=== PATIENT | female | born 1940 | race Caucasian/White ===

== ENCOUNTER → 2018-03-23 09:41 | Outpatient (CLI) | payer MEDICARE, SELFPAY ==
[2018-03-23 11:00] LABS: Alanine Aminotransferase 14 IU/L (9-52); Albumin 4.5 g/dL (3.5-5.0); Albumin Globulin Ratio 1.4 (1.0-2.8); Alkaline Phosphatase 69 U/L (38-126); Aspartate Aminotransferase 22 IU/L (14-36); Bilirubin Total 0.7 mg/dL (0.2-1.3); Blood Urea Nitrogen 20 mg/dL (7-17); Calcium 9.4 mg/dL (8.4-10.2); Carbon Dioxide 31 mmol/L (22-32); Chloride 100 mmol/L (98-107); Estimated Glomerular Filt Rate > 60.0 mL/min (>60); Globulin 3.2 g/dL (1.7-4.1); Glucose 105 mg/dL (80-110); HDL Cholesterol 48 mg/dL (40-60); HEMOLYSIS < 15 (0-50); Potassium 4.5 mmol/L (3.4-5.1); Sodium 140 mmol/L (137-145); Total Protein 7.7 g/dL (6.3-8.2); Triglycerides 261 mg/dL (35-150)
[2018-03-23 11:11] LABS: Cholesterol 329 mg/dL (140-199); LDL Cholesterol Calculated 229 mg/dL (<100)
[2018-03-23 11:21] LABS: Creatinine Urine Random 123.8 mg/dL
[2018-03-23 11:22] LABS: Microalbumi Creatinin Ratio Ur 9.6 ug/mg CR (<30); Microalbumin Urine Random 1.2 mg/dL (0-1.6)
[2018-03-23 11:25] LABS: Thyroid Stimulating Hormone 3.71 uIU/mL (0.47-4.68)
== END ==
PROVIDERS: PCP Physician Assistant; Visit Provider Physician Assistant
DX: I10 Essential (primary) hypertension (principal); E78.1 Pure hyperglyceridemia
CPT/HCPCS: 36415; 80053; 80061; 82043; 82570; 84443

== ENCOUNTER → 2018-12-23 11:01 | Outpatient (CLI) | payer MEDICARE, SELFPAY ==
[2018-12-23 12:21] LABS: Alanine Aminotransferase 17 IU/L (9-52); Albumin 4.5 g/dL (3.5-5.0); Albumin Globulin Ratio 1.4 (1.0-2.8); Alkaline Phosphatase 69 U/L (38-126); Aspartate Aminotransferase 24 IU/L (14-36); BUN Creatinine Ratio 26.3 (6-22); Bilirubin Total 0.4 mg/dL (0.2-1.3); Blood Urea Nitrogen 21 mg/dL (7-17); Calcium 9.2 mg/dL (8.4-10.2); Carbon Dioxide 28 mmol/L (22-32); Chloride 101 mmol/L (98-107); Cholesterol 303 mg/dL (140-199); Estimated Glomerular Filt Rate > 60.0 mL/min (>60); Globulin 3.2 g/dL (1.7-4.1); Glucose 99 mg/dL (80-110); HDL Cholesterol 45 mg/dL (40-60); HEMOLYSIS < 15 (0-50); LDL Cholesterol Calculated 203 mg/dL (<100); Potassium 4.5 mmol/L (3.4-5.1); Sodium 138 mmol/L (137-145); Total Protein 7.7 g/dL (6.3-8.2); Triglycerides 273 mg/dL (35-150)
[2018-12-23 16:03] LABS: Creatinine Urine Random 124.4 mg/dL
[2018-12-23 16:10] LABS: Microalbumi Creatinin Ratio Ur 7.2 ug/mg CR (<30); Microalbumin Urine Random 0.9 mg/dL (0-1.6)
== END ==
PROVIDERS: PCP Physician Assistant; Visit Provider Physician Assistant
DX: E78.1 Pure hyperglyceridemia (principal); I10 Essential (primary) hypertension
CPT/HCPCS: 36415; 80053; 80061; 82043; 82570

== ENCOUNTER 2019-07-10 15:38 | Emergency (ER) | payer MEDICARE, SELFPAY ==
[2019-07-10 15:40] VITALS: BP 199/78; PULSE 67; RESP 18; TEMP 36.6; O2SAT 100
--- NOTE | 2019-07-10 15:59 | DI.CT.S_ITS ---
PROCEDURE: CT HEAD/BRAIN WO CON INDICATIONS: code stroke non tpa TECHNIQUE: Noncontrast 4.5 mm thick angled axial sections acquired from the foramen magnum to the vertex, with coronal and sagittal reformats. For radiation dose reduction, the following was used: automated exposure control, adjustment of mA and/or kV according to patient size. COMPARISON: None. FINDINGS: Image quality: Excellent. CSF spaces: Basal cisterns are patent. No extra-axial fluid collections. The ventricles are symmetric in size and shape. Brain: No intracranial bleeds or masses. There is cerebral volume loss for age, with resultant ventricular and sulcal prominence. There are periventricular and deep white matter chronic small vessel ischemic changes. There is intracranial internal carotid artery atherosclerosis. Skull and face: Calvarium and visualized facial bones appear intact, without suspicious lesions. Sinuses: Visualized sinuses and mastoids are clear. IMPRESSION: No acute intracranial process is seen. Negative for acute hemorrhage. Note is made of age-appropriate brain parenchymal volume loss and chronic small vessel ischemic changes. Dictated by: Vargas Hartmann M.D. on 07/10/2019 at 15:23 Approved by: Vargas Hartmann M.D. on 07/10/2019 at 15:24
--- NOTE | 2019-07-10 16:04 | ED_ITS ---
HPI - Neuro Symptoms/Deficit General Chief Complaint: Neuro Symptoms/Deficit Stated Complaint: blured vision,dizzy,slurred speech Time Seen by Provider: 07/10/19 15:45 Source: patient and family Mode of arrival: Ambulatory Limitations: no limitations History of Present Illness HPI Narrative: Patient comes emergency department after experiencing an episode of difficulty speaking that started somewhere between noon and 1400 today. Patient thinks the episode started between noon and 12 30, but son states he noticed that his mother ?did not seem right? around 1400. Patient states that she has been feeling tired today, but suddenly noticed that when she was trying to talk, the words would not come out. Patient states she also ?did not feel right? when she was trying to walk but does not recall specific weakness on 1 side or the other. She denies feeling a sense of vertigo in her head. Patient denies chest pain or shortness of breath. No sensory deficit that is new. Patient states she has chronic numbness in her sacral area that has been there for years. Patient denies any nausea or vomiting. She has never had any sort of CVA type symptoms before. Patient states she was just on a long road trip for about 6 months and recently returned to [place]. She denies any swelling in her legs. No history of DVT or PE. Patient has a history of hypertension but no diabetes. No other complaints at this time. Patient states she is feeling better now and feels as though she can speak normally. Her son states that the patient seems at baseline at this time. On Anticoagulants: No Related Data Home Medications Medication Instructions Recorded Confirmed [CALCIUM/MAGNESIUM] 1 tab PO QDAY #0 03/16/17 12/28/18 [VITAMIN B-12] 1 tab PO QDAY #0 03/16/17 12/28/18 multivitamin [Multiple Vitamins] 1 tab PO QDAY #0 03/16/17 12/28/18 [place] 1 cap PO .QDAY 03/30/18 12/28/18 Vitamin C 2,000 mg PO .QDAY 03/30/18 12/28/18 Vitamin A 1 tab PO .QDAY 12/28/18 12/28/18 lysine 500 mg tablet 500 mg PO 5XW PRN tab 12/28/18 12/28/18 Previous Rx's Medication Instructions Recorded conjugated estrogens 0.625 mg 0.625 mg PO QDAY #90 tab 03/18/19 tablet losartan 50 mg tablet 50 mg PO QDAY #90 tab 03/18/19 Allergies Allergy/AdvReac Type Severity Reaction Status Date / Time fenofibrate [FENOFIBRATE] AdvReac Intermediate hair loss Verified 12/28/18 14:15 and nails broke fluocinolone acetonide AdvReac Intermediate made my Verified 12/28/18 14:15 scalp burn. Review of Systems Constitutional Constitutional: Denies chills, Denies fatigue, Denies fever(s), Denies frequent falls, Denies lethargy and Denies weakness Eyes Eyes: Denies change in vision, Denies eye discharge, Denies irritation and Denies loss of vision ENT Ears, Nose, Mouth, and Throat: Denies change in voice, Denies dizziness, Denies neck pain, Denies sore throat and Denies throat swelling Cardiovascular Cardiovascular: Denies chest pain, Denies irregular heart rhythm, Denies lightheadedness, Denies palpitations, Denies dyspnea, Denies dyspnea on exertion and Denies orthopnea Respiratory Respiratory: Denies cough, Denies dyspnea, Denies dyspnea on exertion and Denies wheezing Gastrointestinal Gastrointestinal: Denies abdominal pain, Denies change in bowel habits, Denies diarrhea, Denies nausea and Denies vomiting Genitourinary Genitourinary: Denies hematuria, Denies flank pain, Denies urinary incontinence and Denies urinary urgency Musculoskeletal Musculoskeletal: Denies back pain, Denies muscle weakness, Denies neck pain, Denies numbness and Denies tingling Integumentary/Breasts Skin/Breast: Denies pruritus, Denies erythema, Denies rash and Denies wounds Neurologic Neurologic: Denies behavioral changes, Denies confusion, Denies dizziness, Denies frequent falls, Denies loss of vision, Denies numbness, Denies tingling and Denies weakness Comments: Aphasia Psychiatric Psychiatric: Denies anxiety, Denies behavioral changes, Denies confusion, Denies depression, Denies homicidal ideation and Denies suicidal ideation Endocrine Endocrine: Denies fatigue, Denies flushing and Denies palpitations Hematologic/Lymphatic Hematologic/Lymphatic: Denies easy bruising Allergic/Immunologic Allergic/Immunologic: Denies urticaria, Denies throat swelling and Denies wheezing Patient History Medical History Hypertension (Chronic Unknown) Surgical History History of tonsillectomy (194) Status post hysterectomy (1977) Family History Brother Heart disease Hypertension High cholesterol Child Age: 58 Crohns disease Child Age: 55 Hypertension Father Cancer Grandmother Stroke Mother Heart disease Hypertension High cholesterol Stroke Grandmother Heart disease Grandfather No problems noted. Social History Smoking Status: Never smoker second hand exposure: No alcohol intake: never substance use type: does not use Exam Initial Vital Signs Initial Vital Signs: Vital Signs Temperature 97.9 F 07/10/19 15:40 Pulse Rate 67 07/10/19 15:40 Respiratory Rate 18 07/10/19 15:40 Blood Pressure 199/78 H 07/10/19 15:40 Pulse Oximetry 100 07/10/19 15:40 Const General: cooperative and well developed Nutritional Appearance: well nourished Orientation: alert, awake, oriented x3 and not confused HENW[place] Head: normocephalic and atraumatic Ears: external ears normal Nose: external nose normal and No nasal discharge Face and sinus: face symmetric and No dry mucous membranes Mouth: oral mucosae normal and moist mucous membranes Teeth and gingiva: dentition normal Eyes General: appearance normal, both eyes and all related structures Eyelids: eyelids normal Conjunctivae: conjunctivae normal Sclera: sclerae normal Pupils: PERRL EOM: EOM intact bilaterally Neck Neck: normal visual inspection, trachea midline, No lymphadenopathy, No midline deformity and No JVD Lymphatic: No lymphedema Chest Chest: normal inspection of the chest Resp Effort & Inspection: normal respiratory effort, able to speak in complete sentences, no respiratory distress and no use of accessory muscles Auscultation: clear to auscultation bilaterally, no rales, no rhonchi and no wheezes Cardio Rate: regular rate Rhythm: regular rhythm Heart Sounds: no click, no gallops, no murmurs and no rubs Pulses: normal peripheral pulses GI Inspection: non-distended Palpation: soft, no hepatosplenomegaly, No guarding, No pulsatile mass and No tender Auscultation: normal bowel sounds Back/Spine/Pelvis Back: No CVA tenderness Cervical Spine: cervical ROM normal and No pain with cervical ROM Thoracic/Lumbar Spine: thoracic and lumbar spine normal to inspection Skin General: no rashes or lesions noted, No jaundice and No petechiae Neuro General: alert, awake, oriented x3, gait normal, no focal motor deficits and CN's II-XI intact bilaterally Cognition: normal cognition Speech: speech normal Motor: muscle tone normal throughout and strength 5/5 throughout Sensory Exam: no sensory deficits noted Coordination: [id number] test normal and Romberg test normal Other: Patient's NIH stroke scale score is 0. She is able to ambulate to the bathroom completely unassisted on a steady and narrow based gait. Extrem General: full ROM, no clubbing, cyanosis or edema, no pedal edema and no calf tenderness Psych Appearance: well kempt Mental Status: mental status grossly normal Attitude: cooperative Thought Content: normal and suicidality Judgment: judgment good Course Course Course Narrative: Patient was evaluated in the emergency department and sent for a noncontrast CT scan, which was found to be unremarkable. She was worked up with laboratory studies and remained stable throughout her stay in the emergency department. CTA of the head and neck was found to be unremarkable. I discussed length with the patient and family the importance of prevention of stroke by the use of aspirin and blood pressure control. We have discussed the need for expedited follow-up and scheduling of echocardiogram. The patient's case was discussed with Dr. Orellana, who is on-call for the patient's primary care providers group. She stated she would send a message to the patient's primary care provider, sutured in, alerting her that she needs to see the patient in follow-up in the next couple of days. I have discussed with the patient and family that if there is any trouble whatsoever getting an appointment in this time frame, that they should call the emergency department tomorrow, when it will be a week day, and we will help the patient to get an appointment. We have discussed home management of symptoms, as well as the need for return, should the patient begin to experience stroke-like symptoms again. We have discussed that prevention is the most important aspect of treatment of a TIA. Patient continues to have a stroke scale score of 0, and is deemed stable for discharge home. Orders Ordered: Discontinued Medications Aspirin (Aspirin) 325 mg PO NOW ONE Stop: 07/10/19 18:20 Last Admin: 07/10/19 18:54 Dose: Not Given Documented by: ZECHARIAH Aspirin (Aspirin Chew) 324 mg PO NOW ONE Stop: 07/10/19 18:50 Last Admin: 07/10/19 18:55 Dose: 324 mg Documented by: ZECHARIAH Vital Signs Vital signs: Vital Signs - 8 hr 07/10/19 15:40 07/10/19 18:09 Temperature 97.9 F Pulse Rate 67 65 Respiratory Rate 18 16 Blood Pressure [Left Arm] 199/78 H 162/62 H Pulse Oximetry 100 100 MDM - Neuro Symptoms/Deficit Medical Records Attestation: I reviewed the patient's medical records. Lab Data Attestation: I reviewed the patient's lab results. Result diagrams: 07/10/19 15:40 07/10/19 15:40 Labs: Lab Results 07/10/19 07/10/19 07/10/19 Range/Units 15:40 15:40 15:40 WBC 7.1 (4.5-11.0) X10^3/uL RBC 4.56 (4.0-5.2) X10^6/uL Hgb 14.0 (12.0-16.0) g/dL Hct 41.9 (36-46) % MCV 91.8 (80-100) fL MCH 30.7 (26-34) PG MCHC 33.5 (30-36) % RDW 13.3 (11.6-14.8) % Plt Count 211 (150-400) X10^3/uL Neut % (Auto) 54.5 (50-75) % Lymph % (Auto) 34.6 (25-40) % Dix[place] % (Auto) 5.7 (3-14) % Eos % (Auto) 4.1 H (2-4) % Baso % (Auto) 1.1 (0-2) % Neut # (Auto) 3900 (8932-0623) /uL Lymph # (Auto) 2400 (1080-6749) /uL Dixie # (Auto) 400 (0-900) /uL Eos # (Auto) 300 (0-450) /uL Baso # (Auto) 100 (0-100) /uL PT 10.5 (10.1-12.7) SECONDS INR 0.9 (0.9-1.3) Sodium 141 (137-145) mmol/L Potassium 4.3 (3.4-5.1) mmol/L Chloride 103 (98-107) mmol/L Carbon Dioxide 30 (22-32) mmol/L BUN 19 H (7-17) mg/dL Creatinine 0.90 (0.52-1.04) mg/dL Estimated GFR > 60.0 (>60) mL/min BUN/Creatinine Ratio 21.1 (6-22) Glucose 102 (80-110) mg/dL Calcium 9.5 (8.4-10.2) mg/dL Total Bilirubin 0.4 (0.2-1.3) mg/dL AST 27 (14-36) IU/L ALT 17 (<35) IU/L Alkaline Phosphatase 68 (38-126) U/L Total Creatine Kinase 70 (30-135) U/L CK-MB (CK-2) TNP CK-MB (CK-2) Rel Index TNP Troponin I < 0.012 (0.01-0.034) ng/mL Total Protein 7.6 (6.3-8.2) g/dL Albumin 4.5 (3.5-5.0) g/dL Globulin 3.1 (1.7-4.1) g/dL Albumin/Globulin Ratio 1.5 (1.0-2.8) Urine Color Urine Appearance Urine pH (4.5-8.0) Ur Specific [place] (1.000-1.035) Urine Protein (Negative) Urine Glucose (UA) (Negative) g/dL Urine Ketones (NEGATIVE) Urine Occult Blood (Negative) Urine Nitrate (Negative) Urine Bilirubin (NEGATIVE) Urine Urobilinogen (0.2) E.U./dL Ur Leukocyte Esterase (NEGATIVE) 07/10/19 Range/Units 17:30 WBC (4.5-11.0) X10^3/uL RBC (4.0-5.2) X10^6/uL Hgb (12.0-16.0) g/dL Hct (36-46) % MCV (80-100) fL MCH (26-34) PG MCHC (30-36) % RDW (11.6-14.8) % Plt Count (150-400) X10^3/uL Neut % (Auto) (50-75) % Lymph % (Auto) (25-40) % Dix[place] % (Auto) (3-14) % Eos % (Auto) (2-4) % Baso % (Auto) (0-2) % Neut # (Auto) (2448-3901) /uL Lymph # (Auto) (8546-9113) /uL Dixie # (Auto) (0-900) /uL Eos # (Auto) (0-450) /uL Baso # (Auto) (0-100) /uL PT (10.1-12.7) SECONDS INR (0.9-1.3) Sodium (137-145) mmol/L Potassium (3.4-5.1) mmol/L Chloride (98-107) mmol/L Carbon Dioxide (22-32) mmol/L BUN (7-17) mg/dL Creatinine (0.52-1.04) mg/dL Estimated GFR (>60) mL/min BUN/Creatinine Ratio (6-22) Glucose (80-110) mg/dL Calcium (8.4-10.2) mg/dL Total Bilirubin (0.2-1.3) mg/dL AST (14-36) IU/L ALT (<35) IU/L Alkaline Phosphatase (38-126) U/L Total Creatine Kinase (30-135) U/L CK-MB (CK-2) CK-MB (CK-2) Rel Index Troponin I (0.01-0.034) ng/mL Total Protein (6.3-8.2) g/dL Albumin (3.5-5.0) g/dL Globulin (1.7-4.1) g/dL Albumin/Globulin Ratio (1.0-2.8) Urine Color Yellow Urine Appearance Clear Urine pH 6.5 (4.5-8.0) Ur Specific [place] <=1.005 (1.000-1.035) Urine Protein Negative (Negative) Urine Glucose (UA) Negative (Negative) g/dL Urine Ketones Negative (NEGATIVE) Urine Occult Blood Negative (Negative) Urine Nitrate Negative (Negative) Urine Bilirubin Negative (NEGATIVE) Urine Urobilinogen 0.2 (0.2) E.U./dL Ur Leukocyte Esterase Negative (NEGATIVE) Imaging Data CT scan - head: Radiologist's impression: PROCEDURE: CT HEAD/BRAIN WO CON INDICATIONS: code stroke non tpa TECHNIQUE: Noncontrast 4.5 mm thick angled axial sections acquired from the foramen magnum to the vertex, with coronal and sagittal reformats. For radiation dose reduction, the following was used: automated exposure control, adjustment of mA and/or kV according to patient size. COMPARISON: None. FINDINGS: Image quality: Excellent. CSF spaces: Basal cisterns are patent. No extra-axial fluid collections. The ventricles are symmetric in size and shape. Brain: No intracranial bleeds or masses. There is cerebral volume loss for age, with resultant ventricular and sulcal prominence. There are periventricular and deep white matter chronic small vessel ischemic changes. There is intracranial internal carotid artery atherosclerosis. Skull and face: Calvarium and visualized facial bones appear intact, without suspicious lesions. Sinuses: Visualized sinuses and mastoids are clear. IMPRESSION: No acute intracranial process is seen. Negative for acute hemorrhage. Note is made of age-appropriate brain parenchymal volume loss and chronic small vessel ischemic changes. Dictated by: Vargas Hartmann M.D. on 07/10/2019 at 15:23 Approved by: Vargas Hartmann M.D. on 07/10/2019 at 15:24 CTA head and neck: Radiologist's impression: PROCEDURE: CT ANGIO HEAD AND NECK INDICATIONS: stroke symptoms TECHNIQUE: Pre-contrast 4.5 mm thick sections acquired from the foramen magnum to the vertex. After the administration of intravenous contrast, 1 mm thick sections acquired from the aortic arch through the [place] of [place]. Post-contrast 4.5 mm thick sections then re-acquired from the foramen magnum to the vertex. 3-dimensional mfundte-ltbfpquep-yvlwtgodgy (MIP) and/or volume rendering reformats were acquired of the central intracranial vasculature and neck separately. COMPARISON: [facility], CT, CT HEAD/BRAIN WO CON, 07/10/2019, 16:46. FINDINGS: Image quality: Excellent. BRAIN: CSF spaces: Ventricles are normal in size and shape. Basal cisterns are patent. No extra-axial fluid collections. Brain: No midline shift. No intracranial bleeds or masses. Kumar-white matter interface appears intact. Skull and face: Calvarium and facial bones appear intact, without suspicious lesions. Orbits appear normal. Sinuses: Sinuses and mastoids are clear. HEAD CT ANGIOGRAPHY: Anterior circulation: Intracranial internal carotid arteries are normal in size and flow. There is a hypoplastic right A1 segment, with a corresponding robust left A1 segment. This is considered to be a normal developmental variant of the [place] of [place], of typically no clinical consequence. The flow within the paired anterior cerebral arteries is normal and symmetric. The flow within the middle cerebral arteries is normal and symmetric. The anterior communicating artery is seen. No aneurysms are seen. Posterior circulation: Visualized portions of the vertebral arteries demonstrate normal caliber, and join to form a normal appearing basilar artery. Flow within the posterior cerebral arteries is normal and symmetric. No aneurysms are seen. NECK CT ANGIOGRAPHY: Carotid system: The great vessels demonstrate a conventional anatomy as they arise from the aortic arch. The origins of the common carotid arteries appear patent. The common carotid arteries demonstrate normal caliber and courses. The bifurcation regions are both widely patent. The internal carotid arteries demonstrate normal calibers and courses. Posterior circulation: The origins of the vertebral arteries both appear widely patent. The more superior extracranial portions of both vertebral arteries also demonstrate normal courses and calibers. They join to form a normal appearing basilar artery. Soft tissues: Visualized neck soft tissues demonstrate no suspicious abnormalities. Bones: No suspicious bony lesions. Visualized cervical spine appears normally aligned. Lower cervical spine degenerative changes are seen. IMPRESSION: No hemodynamically significant stenosis can be seen. 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 Any quantitative measurements of stenosis were performed using NASCET criteria. Dictated by: Vargas Hartmann M.D. on 07/10/2019 at 17:09 Approved by: Vargas Hartmann M.D. on 07/10/2019 at 17:14 Discharge Plan Departure Patient Disposition: Home Clinical Impression: Transient cerebral ischemia Qualifiers: Transient cerebral ischemia type: unspecified Qualified Code(s): G45.9 - Transient cerebral ischemic attack, unspecified Discharge Date/Time: 07/10/19 19:00 Instructions: DI for Transient Ischemic Attack Activity Restrictions/Additional Instructions: Extensive testing today looks good. This includes blood work, urinalysis, CT scan of the head without contrast, and CT scan of the head and neck with contrast. Your symptoms indicate that you had a ?mini-stroke? earlier. This means that you had symptoms most likely caused by a stroke, but that resolved on their own. The symptoms are also most likely confounded by the fact that you have had an exhausting trip over the last several days and are in need of rest. Please make sure that you get plenty of rest at home. Please also drink plenty of fluids to stay hydrated. Take at least a baby aspirin every single day to help prevent further strokes from recurring. Your case been discussed with Dr. Orellana, who is on-call for your provider's group lala. She is sending a message to Pham Johnson so that you can be seen in the next 1-2 days in the clinic to follow up. Please call the clinic 1st thing tomorrow morning to set up your follow-up appointment. If there is any trouble getting this appointment, please call the emergency department tomorrow, and we will help you get an appointment. You will need to talk to your primary provider about having an echocardiogram, or heart ultrasound, done to evaluate for any potential clot that could break loose from your heart and go to your brain circulation. Your risk for this is low at this time, as you do not have a heart murmur, and you have a normal heart rhythm. if you have recurrence of symptoms that you had earlier, please return to the emergency department. Prescriptions: No Action Vitamin C 2,000 mg PO .QDAY RF: 0 [place] Berg[place]ot 1 cap PO .QDAY RF: 0 multivitamin [Multiple Vitamins] 1 EACH tablet 1 tab PO QDAY Qty: 0 RF: 0 [CALCIUM/MAGNESIUM] 1 tab PO QDAY Qty: 0 RF: 0 [VITAMIN B-12] 1 tab PO QDAY Qty: 0 RF: 0 losartan 50 mg tablet 50 mg PO QDAY Qty: 90 RF: 1 Premarin 0.625 mg tablet 0.625 mg PO QDAY Qty: 90 RF: 2 lysine [L-Lysine] 500 mg tablet 500 mg PO 5XW PRNRF: 0 Vitamin A tablet 1 tab PO .QDAY RF: 0 Referrals: Maame Johnson PA-C [Primary Care Provider] -
[2019-07-10 16:08] LABS: Add Manual Diff / Slide Review NO; Basophils Absolute Auto 100 /uL (0-100); Basophils Percent Auto 1.1 % (0-2); Eosinophils Absolute Auto 300 /uL (0-450); Eosinophils Percent Auto 4.1 % (2-4); Hematocrit 41.9 % (36-46); INR 0.9 (0.9-1.3); Lymphocytes Absolute Auto 2400 /uL (1100-4500); Lymphocytes Percent Auto 34.6 % (25-40); Mean Corpuscular HGB Conc 33.5 % (30-36); Mean Corpuscular Hemoglobin 30.7 PG (26-34); Mean Corpuscular Volume 91.8 fL (80-100); Monocytes Absolute Auto 400 /uL (0-900); Monocytes Percent Auto 5.7 % (3-14); Neutrophils Absolute Auto 3900 /uL (1500-7000); Neutrophils Percent Auto 54.5 % (50-75); Platelet Count 211 X10^3/uL (150-400); Prothrombin Time 10.5 SECONDS (10.1-12.7); Red Blood Cell Count 4.56 X10^6/uL (4.0-5.2); Red Cell Distribution Width 13.3 % (11.6-14.8); White Blood Cell Count 7.1 X10^3/uL (4.5-11.0)
--- NOTE | 2019-07-10 16:11 | PC.NURSE ---
Patient reports around 12 or 1230 that she knew exaclty what she wanted to say and was thinking but felt as though she was having difficulty getting it out. Patient expresses increase fatigue I just want to sleep, I am so tired but I have been sleeping well lately patient reports she just returned from a several day road trip from [place]. Patient at one point felt dizzy' or unsteady on her feet but denies focal numbness or weakness other than some tingling in my tailbone but I have had trouble since childbirth with my tailbone
[2019-07-10 16:12] LABS: Alanine Aminotransferase 17 IU/L (<35); Albumin 4.5 g/dL (3.5-5.0); Albumin Globulin Ratio 1.5 (1.0-2.8); Alkaline Phosphatase 68 U/L (38-126); Aspartate Aminotransferase 27 IU/L (14-36); BUN Creatinine Ratio 21.1 (6-22); Bilirubin Total 0.4 mg/dL (0.2-1.3); Blood Urea Nitrogen 19 mg/dL (7-17); Calcium 9.5 mg/dL (8.4-10.2); Carbon Dioxide 30 mmol/L (22-32); Chloride 103 mmol/L (98-107); Creatine Kinase 70 U/L (30-135); Estimated Glomerular Filt Rate > 60.0 mL/min (>60); Globulin 3.1 g/dL (1.7-4.1); Glucose 102 mg/dL (80-110); HEMOLYSIS < 15 (0-50); Potassium 4.3 mmol/L (3.4-5.1); Sodium 141 mmol/L (137-145); Total Protein 7.6 g/dL (6.3-8.2)
[2019-07-10 16:24] LABS: Troponin I < 0.012 ng/mL (0.01-0.034)
--- NOTE | 2019-07-10 17:01 | DI.CT.S_ITS ---
PROCEDURE: CT ANGIO HEAD AND NECK INDICATIONS: stroke symptoms TECHNIQUE: Pre-contrast 4.5 mm thick sections acquired from the foramen magnum to the vertex. After the administration of intravenous contrast, 1 mm thick sections acquired from the aortic arch through the [place] of [place]. Post-contrast 4.5 mm thick sections then re-acquired from the foramen magnum to the vertex. 3-dimensional iqiglma-nacgnjbhw-klppnitkgh (MIP) and/or volume rendering reformats were acquired of the central intracranial vasculature and neck separately. COMPARISON: [facility], CT, CT HEAD/BRAIN WO CON, 07/10/2019, 16:46. FINDINGS: Image quality: Excellent. BRAIN: CSF spaces: Ventricles are normal in size and shape. Basal cisterns are patent. No extra-axial fluid collections. Brain: No midline shift. No intracranial bleeds or masses. Kumar-white matter interface appears intact. Skull and face: Calvarium and facial bones appear intact, without suspicious lesions. Orbits appear normal. Sinuses: Sinuses and mastoids are clear. HEAD CT ANGIOGRAPHY: Anterior circulation: Intracranial internal carotid arteries are normal in size and flow. There is a hypoplastic right A1 segment, with a corresponding robust left A1 segment. This is considered to be a normal developmental variant of the [place] of [place], of typically no clinical consequence. The flow within the paired anterior cerebral arteries is normal and symmetric. The flow within the middle cerebral arteries is normal and symmetric. The anterior communicating artery is seen. No aneurysms are seen. Posterior circulation: Visualized portions of the vertebral arteries demonstrate normal caliber, and join to form a normal appearing basilar artery. Flow within the posterior cerebral arteries is normal and symmetric. No aneurysms are seen. NECK CT ANGIOGRAPHY: Carotid system: The great vessels demonstrate a conventional anatomy as they arise from the aortic arch. The origins of the common carotid arteries appear patent. The common carotid arteries demonstrate normal caliber and courses. The bifurcation regions are both widely patent. The internal carotid arteries demonstrate normal calibers and courses. Posterior circulation: The origins of the vertebral arteries both appear widely patent. The more superior extracranial portions of both vertebral arteries also demonstrate normal courses and calibers. They join to form a normal appearing basilar artery. Soft tissues: Visualized neck soft tissues demonstrate no suspicious abnormalities. Bones: No suspicious bony lesions. Visualized cervical spine appears normally aligned. Lower cervical spine degenerative changes are seen. IMPRESSION: No hemodynamically significant stenosis can be seen. 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 Any quantitative measurements of stenosis were performed using NASCET criteria. Dictated by: Vargas Hartmann M.D. on 07/10/2019 at 17:09 Approved by: Vargas Hartmann M.D. on 07/10/2019 at 17:14
[2019-07-10 17:42] LABS: Appearance Urine UA CLEAR; Bilirubin Urine UA NEGATIVE (NEGATIVE); Color Urine UA YELLOW; Glucose Urine UA NEGATIVE (Negative); Ketones Urine UA NEGATIVE (NEGATIVE); Leukocyte Esterase Urine UA NEGATIVE (NEGATIVE); Nitrite Urine UA NEGATIVE (Negative); Occult Blood Urine UA NEGATIVE (Negative); Protein Urine UA NEGATIVE (Negative); Specific Gravity Urine UA <=1.005 (1.000-1.035); Urobilinogen Urine UA 0.2 E.U./dL (0.2); pH Urine UA 6.5 (4.5-8.0)
[2019-07-10 18:09] VITALS: BP 162/62; PULSE 65; RESP 16; O2SAT 100
[2019-07-10] MEDS: ASPIRIN 81 MG CHEW TAB 324 MG PO (18:55)
[2019-07-10 19:00] VITALS: PULSE 74; RESP 12; O2SAT 99
== END 2019-07-10 19:00 | disposition home or self-care (01) ==
PROVIDERS: Emergency Provider Emergency Medicine; PCP Physician Assistant
DX: G45.9 Transient cerebral ischemic attack, unspecified (principal)
CPT/HCPCS: 36415; 70450; 70496; 70498; 80053; 81003; 82550; 84484; 85025; 85610; 93005; 93041; 99284; Q9967

== ENCOUNTER 2019-07-12 10:35 | Inpatient (IN) | payer MEDICARE, SELFPAY ==
[2019-07-12] VITALS (11 sets, daily range): BP systolic 140–166; BP diastolic 59–93; PULSE 63–71; RESP 14–18; TEMP 35.7–36.4; O2SAT 92–99; BMI 36.6
--- NOTE | 2019-07-12 10:39 | ED_ITS ---
HPI - Neuro Symptoms/Deficit General Chief Complaint: Neuro Symptoms/Deficit Stated Complaint: sent from clinic,considered pt had stroke Time Seen by Provider: 07/12/19 10:39 Source: patient and other (Lois Das sent patient from clinic. ) Mode of arrival: Wheelchair Limitations: no limitations History of Present Illness HPI Narrative: This is a 78-year-old comes to the emergency department with complaint of stroke-like symptoms. Patient was actually seen on Thursday her symptoms had resolved at that time and she was discharged home with plan for follow-up for TIA. Patient states Thursday night she had gotten up to go the bathroom about 11:00 a.m. in the evening and had a fall. That was when they realized that her left leg was weak, her eyes she states for chronic drifting and she could quite control them. Patient states her speech is also been a little bit garbled. She lives with her ex- who is her caregiver and he states that he appreciated these changes. They went for follow-up appointment today and they noted that they symptoms had been present since late Thursday night. Patient denies headache, she denies any vision changes at this time. She states her speech is difficult and not her normal. She states her left arm and leg are quite a bit weaker. She denies any numbness or tingling accepted her tailbone which is chronic and she has chronic tailbone pain. She also has facial droop that her and her ex- no. She took an aspirin 81 mg today, she takes losartan for blood pressure. Denies any diabetes or dyslipidemia. Patient had a partial hysterectomy the age of 37, denies any allergies. No tobacco, alcohol or illicit. Pham Johnson is her primary care. Related Data Home Medications Medication Instructions Recorded Confirmed [CALCIUM/MAGNESIUM] 1 tab PO DAILY #0 03/16/17 07/12/19 [VITAMIN B-12] 1 tab PO DAILY #0 03/16/17 07/12/19 multivitamin [Multiple Vitamins] 1 tab PO DAILY #0 03/16/17 07/12/19 [place] 1 cap PO DAILY 03/30/18 07/12/19 Vitamin C 2,000 mg PO .QDAY 03/30/18 07/12/19 Vitamin A 1 tab PO DAILY 12/28/18 07/12/19 lysine 500 mg tablet 500 mg PO 5XW PRN tab 12/28/18 07/12/19 aspirin 81 mg tablet,delayed 81 mg PO DAILY 07/12/19 07/12/19 release conjugated estrogens [Premarin] 0.625 mg PO DAILY 07/12/19 07/12/19 losartan 50 mg PO DAILY 07/12/19 07/12/19 Allergies Allergy/AdvReac Type Severity Reaction Status Date / Time fenofibrate [FENOFIBRATE] AdvReac Intermediate hair loss Verified 07/12/19 09:47 and nails broke fluocinolone acetonide AdvReac Intermediate made my Verified 07/12/19 09:47 scalp burn. Review of Systems Review of Systems ROS Unobtainable: All systems reviewed & are unremarkable except as noted in HPI and below Patient History Medical History Hypertension (Chronic Unknown) Surgical History History of tonsillectomy (1945) Status post hysterectomy (1977) Family History Brother Heart disease Hypertension High cholesterol Child Age: 58 Crohns disease Child Age: 55 Hypertension Father Cancer Grandmother Stroke Mother Heart disease Hypertension High cholesterol Stroke Grandmother Heart disease Grandfather No problems noted. Social History household members: family Smoking Status: Never smoker second hand exposure: No alcohol intake: never substance use type: does not use Exam Narrative Exam Narrative: GEN: well nourished, well appearing female, alert and oriented x 3, patient appears to be in mild distress. HEENT: Atraumatic, pupils are equal round reactive to light, extraocular movements are intact, nares are clear. Throat is clear without any exudates, erythema, tonsillar enlargement or uvular deviation, patient has mild left facial droop. Deviation of tongue to the right. HEART: Regular rate and rhythm without murmur, clicks, rubs. No carotid bruits, pulses are equal in upper and lower extremities LUNGS:Lungs clear to auscultation, no wheezes, rales, crackles, chest moves symmetrically ABD:bowel sounds normal, soft, non-tender, no guarding, rebound, rigidity, no masses noted, no hepatosplenomegaly :No CVA tenderness. MSCL: Non-tender, no muscle atrophy, muscles strength 5/5 upper and lower right extremity, on left patient has drift in her leg and mildly on the left upper arm, gait not tested NEURO:CN 2-12 intact, sensation normal, reflexes 2/4 upper and lower extremities. finger nose finger test normal on right, patient has difficulty wi th left, heel anthony test normal on right with some difficulty on the left. SKIN: Rashes, no petechiae. Initial Vital Signs Initial Vital Signs: Vital Signs Temperature 97.3 F L 07/12/19 10:35 Pulse Rate 63 07/12/19 10:35 Respiratory Rate 16 07/12/19 10:35 Pulse Oximetry 96 07/12/19 10:35 Scores NIH Stroke Scale Level of Conciousness: Alert, keenly responsive Ask month/age: Answers both questions correctly. Open/close eyes, close hand: Performs both tasks correctly Best gaze horizontal: Normal Visual ramachandran: No visual loss Facial palsy: Minor paralysis, flattened nasolabial fold, asymmetry on smiling Left arm drift: Drifts down, not to bed Right arm drift: No drift for full 10 sec Left leg drift: Drifts down, not to bed Right leg drift: No drift for full 10 sec Limb ataxia: Present in two limbs Sensory on face/arms/legs: Normal, no sensory loss Best language: Mild to moderate, slurs some words Dysarthria: Mild to mod,some slurring Extinction or inattention: No abnormality Total NIH Stroke scale score: 7 Course Orders Ordered: ED Orders 07/12/19 10:44 CT head/brain wo con Stat 07/12/19 10:52 EKG-12 Lead Stat 07/12/19 11:05 Basic Metabolic Panel Stat Complete Blood Count AUTO DIFF Stat Partial Thromboplastin Time Stat Prothrombin Time INR Stat Troponin I Stat Urine Drug Screen, Rapid Stat 07/12/19 11:12 CT angio head and neck Stat Acetaminophen (Tylenol) 650 mg PO Q6HR PRN PRN Reason: As Needed for Fever/Mild Pain Aspirin (Aspirin Ec) 81 mg PO DAILY COUNT INCLUDES THE [facility] Atorvastatin Calcium (Lipitor) 40 mg PO BEDTIME MARIANA Enoxaparin Sodium (Lovenox) 40 mg SUBCUT DAILY COUNT INCLUDES THE [facility] Sodium Chloride (Normal Saline 0.9%) 1,000 mls @ 150 mls/hr IV CONT MARIANA Last Infusion: 07/12/19 14:37 Dose: 150 mls/hr Documented by: Admin: 07/12/19 11:28 Dose: 150 mls/hr Documented by: NOA Losartan Potassium (Cozaar) 50 mg PO DAILY MARIANA Magnesium Hydroxide (Milk Of Magnesia) 30 ml PO DAILY PRN PRN Reason: Constipation Multivitamins (Tab-A-Jelena) 1 tab PO DAILY MARIANA Discontinued Medications Aspirin (Aspirin Chew) 243 mg PO NOW ONE Stop: 07/12/19 12:45 Last Admin: 07/12/19 12:55 Dose: 243 mg Documented by: KELLY Vital Signs Vital signs: Vital Signs - 8 hr 07/12/19 10:35 07/12/19 11:15 07/12/19 11:30 Temperature 97.3 F L Pulse Rate 63 64 63 Respiratory Rate 16 16 17 Blood Pressure [Right Arm] 150/92 H 155/62 H Pulse Oximetry 96 97 99 07/12/19 12:14 07/12/19 12:15 07/12/19 12:30 Temperature Pulse Rate 63 63 68 Respiratory Rate 14 15 17 Blood Pressure [Right Arm] 163/65 H 163/66 H Pulse Oximetry 99 98 98 07/12/19 13:00 07/12/19 13:30 Temperature Pulse Rate 71 68 Respiratory Rate 18 18 Blood Pressure [Right Arm] 140/59 L Pulse Oximetry 96 97 MDM - Neuro Symptoms/Deficit Lab Data Attestation: I reviewed the patient's lab results. Result diagrams: 07/12/19 11:05 07/12/19 11:05 Labs: Lab Results 07/12/19 07/12/19 07/12/19 Range/Units 11:05 11:05 11:05 WBC 7.7 (4.5-11.0) X10^3/uL RBC 4.60 (4.0-5.2) X10^6/uL Hgb 14.2 (12.0-16.0) g/dL Hct 42.2 (36-46) % MCV 91.7 (80-100) fL MCH 30.8 (26-34) PG MCHC 33.6 (30-36) % RDW 13.2 (11.6-14.8) % Plt Count 207 (150-400) X10^3/uL Neut % (Auto) 70.2 (50-75) % Lymph % (Auto) 20.5 L (25-40) % [place] % (Auto) 6.5 (3-14) % Eos % (Auto) 1.9 L (2-4) % Baso % (Auto) 0.9 (0-2) % Neut # (Auto) 5400 (8085-4033) /uL Lymph # (Auto) 1600 (4440-8713) /uL [place] # (Auto) 500 (0-900) /uL Eos # (Auto) 100 (0-450) /uL Baso # (Auto) 100 (0-100) /uL PT 10.8 (10.1-12.7) SECONDS INR 0.9 (0.9-1.3) APTT 29 (26.4-36.2) SECONDS Sodium 139 (137-145) mmol/L Potassium 4.5 (3.4-5.1) mmol/L Chloride 102 (98-107) mmol/L Carbon Dioxide 25 (22-32) mmol/L BUN 16 (7-17) mg/dL Creatinine 0.60 (0.52-1.04) mg/dL Estimated GFR > 60.0 (>60) mL/min BUN/Creatinine Ratio 26.7 H (6-22) Glucose 108 (80-110) mg/dL Calcium 9.6 (8.4-10.2) mg/dL Troponin I < 0.012 (0.01-0.034) ng/mL U Morph 300 ng/mL cutoff (Negative) Ur Oxycodone Screen (Negative) Urine Methadone Screen (Negative) Ur Barbiturates Screen (Negative) U Tricyclic Antidepress (Negative) Ur Phencyclidine Scrn (Negative) Ur Amphetamines Screen (Negative) U Methamphetamines Scrn (Negative) Ur MDMA Scrn (Ecstasy) (Negative) U Benzodiazepines Scrn (Negative) Urine Cocaine Screen (Negative) U Marijuana (THC) Screen (Negative) 07/12/19 Range/Units 11:05 WBC (4.5-11.0) X10^3/uL RBC (4.0-5.2) X10^6/uL Hgb (12.0-16.0) g/dL Hct (36-46) % MCV (80-100) fL MCH (26-34) PG MCHC (30-36) % RDW (11.6-14.8) % Plt Count (150-400) X10^3/uL Neut % (Auto) (50-75) % Lymph % (Auto) (25-40) % [place] % (Auto) (3-14) % Eos % (Auto) (2-4) % Baso % (Auto) (0-2) % Neut # (Auto) (1554-6634) /uL Lymph # (Auto) (6303-9664) /uL [place] # (Auto) (0-900) /uL Eos # (Auto) (0-450) /uL Baso # (Auto) (0-100) /uL PT (10.1-12.7) SECONDS INR (0.9-1.3) APTT (26.4-36.2) SECONDS Sodium (137-145) mmol/L Potassium (3.4-5.1) mmol/L Chloride (98-107) mmol/L Carbon Dioxide (22-32) mmol/L BUN (7-17) mg/dL Creatinine (0.52-1.04) mg/dL Estimated GFR (>60) mL/min BUN/Creatinine Ratio (6-22) Glucose (80-110) mg/dL Calcium (8.4-10.2) mg/dL Troponin I (0.01-0.034) ng/mL U Morph 300 ng/mL cutoff Negative (Negative) Ur Oxycodone Screen Negative (Negative) Urine Methadone Screen Negative (Negative) Ur Barbiturates Screen Negative (Negative) U Tricyclic Antidepress Negative (Negative) Ur Phencyclidine Scrn Negative (Negative) Ur Amphetamines Screen Negative (Negative) U Methamphetamines Scrn Negative (Negative) Ur MDMA Scrn (Ecstasy) Negative (Negative) U Benzodiazepines Scrn Negative (Negative) Urine Cocaine Screen Negative (Negative) U Marijuana (THC) Screen Negative (Negative) Urine Dip Bedside Urine Glucose Negative Bedside Urine Bilirubin - Negative Bedside Urine Ketone +/- 5 Urine Specific [place] 1.015 Bedside Urine Occult Blood - Negative Bedside Urine pH 6.0 Bedside Urine Protein - Negative Bedside Urine Urobilinogen - Negative Bedside Urine Nitrite - Negative Bedside Urine Leukocytes - Negative Esterase Imaging Data CT scan - head: Radiologist's impression: [address] [address] [address] Scan Report Signed Patient: Randee Sanchez CMR#: [id number] : [id number] Age/Sex: 78 / FDate of Service: 07/12/19 Loc: ED Accession Number: [id number] Procedure: CT head/brain wo con Ordering Provider: Anca Hahn D.O. PROCEDURE: CT HEAD/BRAIN WO CON INDICATIONS: TIA on Thursday, CVA Thursday, left leg week, garbled speech TECHNIQUE: Noncontrast 4.5 mm thick angled axial sections acquired from the foramen magnum to the vertex, with coronal and sagittal reformats. For radiation dose reduction, the following was used: automated exposure control, adjustment of mA and/or kV according to patient size. COMPARISON: [facility], CT, CT ANGIO HEAD AND NECK, 07/10/2019, 18:34. [facility], CT, CT HEAD/BRAIN WO CON, 07/10/2019, 16:46. FINDINGS: Image quality: Excellent. CSF spaces: Basal cisterns are patent. No extra-axial fluid collections. The ventricles are symmetric in size and shape. Brain: No intracranial bleeds or masses. There is cerebral volume loss for ag e, with resultant ventricular and sulcal prominence. There are periventricular and deep white matter chronic small vessel ischemic changes. There is intracranial internal carotid artery atherosclerosis. Skull and face: Calvarium and visualized facial bones appear intact, without suspicious lesions. Sinuses: Visualized sinuses and mastoids are clear. IMPRESSION: Unremarkable intracranial study for age, without findings of acute hemorrhage or CT findings of early infarction. If there is strong clinical suspicion for an acute stroke, please consider an MRI for further evaluation, as it is more sensitive (assuming that there is no contraindication to MRI). Dictated by: Vargas Hartmann M.D. on 07/12/2019 at 10:30 Approved by: Vargas Hartmann M.D. on 07/12/2019 at 10:31 CTA head and neck: Radiologist's impression: [address] [address] [address] Scan Report Signed Patient: Randee Sanchez CMR#: [id number] : [id number]:[id number] Age/Sex: 78 / FDate of Service: 07/12/19 Loc: ED Accession Number: [id number] Procedure: CT angio head and neck Ordering Provider: Anca Hahn D.O. PROCEDURE: CT ANGIO HEAD AND NECK INDICATIONS: tia on thu, cva thursday, left leg wk, garbled speech TECHNIQUE: Pre-contrast 4.5 mm thick sections acquired from the foramen magnum to the vertex. After the administration of intravenous contrast, 1 mm thick sections acquired from the aortic arch through the [place] of [place]. Post-contrast 4.5 mm thick sections then re- acquired from the foramen magnum to the vertex. 3-dimensional khvwqtq-bcaraixss-genioterzh (MIP) and/or volume rendering reformats were acquired of the central intracranial vasculature and neck separately. COMPARISON: [facility], CT, CT HEAD/BRAIN WO CON, 07/12/2019, 11:10. [facility], CT, CT ANGIO HEAD AND NECK, 07/10/2019, 18:34. FINDINGS: Image quality: Excellent. BRAIN: CSF spaces: Ventricles are normal in size and shape. Basal cisterns are patent. No extra-axial fluid collections. Brain: No midline shift. No intracranial bleeds or masses. Kumar-white matter interface appears intact. Skull and face: Calvarium and facial bones appear intact, without suspicious lesions. Orbits appear normal. Sinuses: Sinuses and mastoids are clear. HEAD CT ANGIOGRAPHY: Anterior circulation: Intracranial internal carotid arteries are normal in flow. Atherosclerotic calcifications noted in the cavernous and clinoid segments of the internal carotid arteries bilaterally which do not cause measurable stenosis. Soft atherosclerotic plaque noted in the supraclinoid segment of the right internal carotid artery which causes moderate stenosis The flow within the paired anterior cerebral arteries is normal. 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 The flow within the middle cerebral arteries is normal and symmetric. The anterior communicating artery is seen. No aneurysms are seen. Posterior circulation: Visualized portions of the vertebral arteries demonstrate normal caliber, and join to form a normal appearing basilar artery. Flow within the posterior cerebral arteries is normal and symmetric. No aneurysms are seen. NECK CT ANGIOGRAPHY: Carotid system: The great vessels demonstrate a conventional anatomy as they arise from the aortic arch. The origins of the common carotid arteries appear patent. The common carotid arteries demonstrate normal caliber and courses. Atherosclerotic plaque noted in the origins of the internal carotid arteries bilaterally which causes less than 50% stenosis. Posterior circulation: Atherosclerotic plaque noted in the origins of the vertebral arteries bilaterally which causes mild to moderate stenosis. The more superior extracranial portions of both vertebral arteries also demonstrate normal courses and calibers. They join to form a normal appearing basilar artery. Soft tissues: Visualized neck soft tissues demonstrate no suspicious abnormalities. Bones: No suspicious bony lesions. Visualized cervical spine appears normally aligned. IMPRESSION: 1. No acute intracranial disease process. 2. No large vessel occlusion, hemodynamically significant vascular stenosis, vascular dissection or aneurysm. Any quantitative measurements of stenosis were performed using NASCET criteria. ECG Data Attestation: I personally reviewed and interpreted this ECG as follows: Prior ECG tracings: available for review Interpretation: Sinus rhythm rate of 69 OK 140 QRS of 96 and QTC of 418. No ST elevation or depression. Patient has prior EKG from 07/10/2019 which appears similar. [facility] Narrative Medical decision making narrative: Patient comes in with TIA symptoms on Thursday which had resolved. She was discharged home plan for close follow-up today. Over the weekend patient developed new symptoms on Thursday night and her and family did not realize that they should return to the ER and so went to their appointments were was noted that she had left-sided weakness, facial droop and difficulty with speech. This is been consistent since Thursday evening. Patient has had over 24 hours, now almost 36 of symptoms. repeat imaging shows no acute changes on head CT or CTA. Patient was given 3 additional aspirin plus she had 81 mg at home. Labs show no acute findings, including troponin is negative. Prior labs shows dyslipidemia the elevated LDL, total cholesterol and triglycerides. No signs of atrial fibrillation on EKG or telemetry today. I spoke with Dr. Pastrana the hospitalist who accepts for inpatient admission. Discharge Plan Departure Patient Disposition: Admitted As Inpatient Clinical Impression: CVA (cerebral vascular accident) Discharge Date/Time: 07/12/19 14:43 Referrals: Maame Johnson PA-C [Primary Care Provider] - Admit Date/Time: 07/12/19 13:36 Admit Provider: John Pastrana
--- NOTE | 2019-07-12 10:44 | DI.CT.S_ITS ---
PROCEDURE: CT HEAD/BRAIN WO CON INDICATIONS: TIA on Thursday, CVA Thursday, left leg week, garbled speech TECHNIQUE: Noncontrast 4.5 mm thick angled axial sections acquired from the foramen magnum to the vertex, with coronal and sagittal reformats. For radiation dose reduction, the following was used: automated exposure control, adjustment of mA and/or kV according to patient size. COMPARISON: [facility], CT, CT ANGIO HEAD AND NECK, 07/10/2019, 18:34. [facility], CT, CT HEAD/BRAIN WO CON, 07/10/2019, 16:46. FINDINGS: Image quality: Excellent. CSF spaces: Basal cisterns are patent. No extra-axial fluid collections. The ventricles are symmetric in size and shape. Brain: No intracranial bleeds or masses. There is cerebral volume loss for age, with resultant ventricular and sulcal prominence. There are periventricular and deep white matter chronic small vessel ischemic changes. There is intracranial internal carotid artery atherosclerosis. Skull and face: Calvarium and visualized facial bones appear intact, without suspicious lesions. Sinuses: Visualized sinuses and mastoids are clear. IMPRESSION: Unremarkable intracranial study for age, without findings of acute hemorrhage or CT findings of early infarction. If there is strong clinical suspicion for an acute stroke, please consider an MRI for further evaluation, as it is more sensitive (assuming that there is no contraindication to MRI). Dictated by: Vargas Hartmann M.D. on 07/12/2019 at 10:30 Approved by: Vargas Hartmann M.D. on 07/12/2019 at 10:31
--- NOTE | 2019-07-12 11:12 | DI.CT.S_ITS ---
PROCEDURE: CT ANGIO HEAD AND NECK INDICATIONS: tia on thu, cva thursday, left leg wk, garbled speech TECHNIQUE: Pre-contrast 4.5 mm thick sections acquired from the foramen magnum to the vertex. After the administration of intravenous contrast, 1 mm thick sections acquired from the aortic arch through the [place]emat[place] of Pop. Post-contrast 4.5 mm thick sections then re-acquired from the foramen magnum to the vertex. 3-dimensional yvuvgus-ycnhgkxhv-hkbtwymclb (MIP) and/or volume rendering reformats were acquired of the central intracranial vasculature and neck separately. COMPARISON: [facility], CT, CT HEAD/BRAIN WO CON, 07/12/2019, 11:10. [facility], CT, CT ANGIO HEAD AND NECK, 07/10/2019, 18:34. FINDINGS: Image quality: Excellent. BRAIN: CSF spaces: Ventricles are normal in size and shape. Basal cisterns are patent. No extra-axial fluid collections. Brain: No midline shift. No intracranial bleeds or masses. Kumar-white matter interface appears intact. Skull and face: Calvarium and facial bones appear intact, without suspicious lesions. Orbits appear normal. Sinuses: Sinuses and mastoids are clear. HEAD CT ANGIOGRAPHY: Anterior circulation: Intracranial internal carotid arteries are normal in flow. Atherosclerotic calcifications noted in the cavernous and clinoid segments of the internal carotid arteries bilaterally which do not cause measurable stenosis. Soft atherosclerotic plaque noted in the supraclinoid segment of the right internal carotid artery which causes moderate stenosis The flow within the paired anterior cerebral arteries is normal. 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 The flow within the middle cerebral arteries is normal and symmetric. The anterior communicating artery is seen. No aneurysms are seen. Posterior circulation: Visualized portions of the vertebral arteries demonstrate normal caliber, and join to form a normal appearing basilar artery. Flow within the posterior cerebral arteries is normal and symmetric. No aneurysms are seen. NECK CT ANGIOGRAPHY: Carotid system: The great vessels demonstrate a conventional anatomy as they arise from the aortic arch. The origins of the common carotid arteries appear patent. The common carotid arteries demonstrate normal caliber and courses. Atherosclerotic plaque noted in the origins of the internal carotid arteries bilaterally which causes less than 50% stenosis. Posterior circulation: Atherosclerotic plaque noted in the origins of the vertebral arteries bilaterally which causes mild to moderate stenosis. The more superior extracranial portions of both vertebral arteries also demonstrate normal courses and calibers. They join to form a normal appearing basilar artery. Soft tissues: Visualized neck soft tissues demonstrate no suspicious abnormalities. Bones: No suspicious bony lesions. Visualized cervical spine appears normally aligned. IMPRESSION: 1. No acute intracranial disease process. 2. No large vessel occlusion, hemodynamically significant vascular stenosis, vascular dissection or aneurysm. Any quantitative measurements of stenosis were performed using NASCET criteria. Dictated by: Soraya Montague MD, PhD on 07/12/2019 at 12:12 Approved by: Soraya Montague MD, PhD on 07/12/2019 at 12:36
--- NOTE | 2019-07-12 11:12 | PC.NURSE ---
reports, multiple fall last thursday, since then still has nausea, not feeling well, +left side weakness. denies headache, visual changes.
--- NOTE | 2019-07-12 11:14 | PC.NURSE ---
Two unsuccessful IV starts on Right hand and Right arm.
[2019-07-12 11:17] LABS: Add Manual Diff / Slide Review NO; Basophils Absolute Auto 100 /uL (0-100); Basophils Percent Auto 0.9 % (0-2); Eosinophils Absolute Auto 100 /uL (0-450); Eosinophils Percent Auto 1.9 % (2-4); Hematocrit 42.2 % (36-46); Hemoglobin 14.2 g/dL (12.0-16.0); Lymphocytes Absolute Auto 1600 /uL (1100-4500); Lymphocytes Percent Auto 20.5 % (25-40); Mean Corpuscular HGB Conc 33.6 % (30-36); Mean Corpuscular Hemoglobin 30.8 PG (26-34); Mean Corpuscular Volume 91.7 fL (80-100); Monocytes Absolute Auto 500 /uL (0-900); Monocytes Percent Auto 6.5 % (3-14); Neutrophils Absolute Auto 5400 /uL (1500-7000); Neutrophils Percent Auto 70.2 % (50-75); Platelet Count 207 X10^3/uL (150-400); Red Cell Distribution Width 13.2 % (11.6-14.8); White Blood Cell Count 7.7 X10^3/uL (4.5-11.0)
[2019-07-12 11:24] LABS: INR 0.9 (0.9-1.3); Prothrombin Time 10.8 SECONDS (10.1-12.7)
[2019-07-12 11:26] LABS: PTT Partial Thromboplastin Tim 29 SECONDS (26.4-36.2)
[2019-07-12 11:28] LABS: BUN Creatinine Ratio 26.7 (6-22); Blood Urea Nitrogen 16 mg/dL (7-17); Calcium 9.6 mg/dL (8.4-10.2); Carbon Dioxide 25 mmol/L (22-32); Chloride 102 mmol/L (98-107); Estimated Glomerular Filt Rate > 60.0 mL/min (>60); Glucose 108 mg/dL (80-110); HEMOLYSIS 49 (0-50); Potassium 4.5 mmol/L (3.4-5.1); Sodium 139 mmol/L (137-145)
[2019-07-12] MEDS: SODIUM CHLORIDE 0.9% 1,000 ML 150 ML IV (11:28)
[2019-07-12 11:37] LABS: UR Morphine/Opiate cutoff 300 Negative (Negative); Ur Creatinine Normal (Normal); Ur Specific Gravity Normal (Normal); Urine Amphetamines Negative (Negative); Urine Barbiturates Negative (Negative); Urine Benzodiazepines Negative (Negative); Urine Cocaine Negative (Negative); Urine MDMA Negative (Negative); Urine Methadone Negative (Negative); Urine Methamphetamines Negative (Negative); Urine Oxycodone Negative (Negative); Urine Phencyclidine Negative (Negative); Urine Tetrahydrocannabinol Negative (Negative); Urine Tricyclic Antidepressant Negative (Negative); Urine pH Normal (Normal)
[2019-07-12 11:39] LABS: Troponin I < 0.012 ng/mL (0.01-0.034)
[2019-07-12] MEDS: ASPIRIN 81 MG CHEW TAB 243 MG PO (12:55)
--- NOTE | 2019-07-12 15:00 | PT.IIE ---
Surgical History (Last Reviewed 07/12/19 @ 11:10 by Anca Hahn DO) History of tonsillectomy (1946) Status post hysterectomy (1977) Medical History (Last Reviewed 07/12/19 @ 11:10 by Anca Hahn DO) Hypertension (Chronic Unknown) Physical Therapy Inpatient Evaluation/Re-Eval M1 PT/OT-IP Prior Functional Status Start: 07/12/19 15:46 Freq: NEEDED Status: Active Protocol: Document 07/12/19 15:00 AB (Rec: 07/12/19 16:10 AB [id number]) Medical Review Prior Functional Status Medical History Reviewed Yes Communication able to make needs known Mobility and Gait pt stated that she is independent with all mobilities and ambulation without AD Social History Household Members other Living Arrangements House Number of Floors (Floors) One Floor Number of Stairs To Enter/Railing? 2 steps without rails Home Environment Standard Height Toilet,Walk in Shower Home Equipment Four Wheel Walker,Shower Seat without Backrest Additional Social History Comment pt's son stated that he borrowed a transport chair, 4WW and a shower stool Pt lives with her ex- M2 PT-IP Current Condition Start: 07/12/19 15:46 Freq: NEEDED Status: Active Protocol: Document 07/12/19 15:00 AB (Rec: 07/12/19 16:10 [id number]) Physical Therapy Current Condition Current Condition Evaluation Date 07/12/19 Treatment Diagnosis CVA; difficulty in walking Onset Date 07/12/19 Precautions Other Precautions Falls M3 PT-IP Subjective Start: 07/12/19 15:46 Freq: NEEDED Status: Active Protocol: Document 07/12/19 15:00 AB (Rec: 07/12/19 16:10 AB [id number]) Subjective Physical Therapy Visit Type Type Initial Evaluation Visit Start Time 15:00 Visit Stop Time 15:40 Total Visit Minutes 40 Number of BIOPROCESS DEVELOPMENT ENGINEER Visits 0 Physical Therapy Visit Comments Patient Comments pt agreeable to do PT Therapy Pain Assessment Pain Present Pain Present Denied Pain M4 PT-IP Mobility and Gait Start: 07/12/19 15:46 Freq: NEEDED Status: Active Protocol: Document 07/12/19 15:00 AB (Rec: 07/12/19 16:10 AB [id number]) PT-Bed Mobility Assessment Supine to Sit Supine to Sit Minimal Assistance,1 Person Assistance Sit to Supine Sit to Supine Minimal Assistance,1 Person Assistance PT-Transfer Assessment Sit to and From Stand Sit to and from Stand Moderate Assistance,1 Person Assistance,Use of Upper Extremities Equipment Transfer Assistive Device Gait Belt,Front Wheeled Walker Orthotic/Prosthetic Devices or Brace: No Transfer Ability Level of Assist Moderate Assistance,2 Person Assistance,Use of Upper Extremities Comments Mobility Comments pt agreeable to do PT. pt completed supine to sit min A and cues. pt was able to sit on EOB CGA and cues. Pt was able to sit on EOB for ~15 min . requires cues to use LUE for support. pt presents with L sided neglect/inattention. Pt completed sit to stand from EOB mod A and cues. ambulated in room using FWW ~ 12 ft requiring mod A x 2. pt requires assist for stability and cues for L quads activation and assistance with maneuvering FWW. pt requires increase time to complete task on L side and has decrease motor planning requiring cues and assist. Gait Assessment Gait Gait Assistance Required: Moderate Assistance,2 Person Assist Distance (Feet) 12 Able to Maintain Weight Bearing Status Yes During Gait Assistive Devices Assistive Device Gait Belt,Front Wheeled Walker Orthotic/Prosthetic Devices or Brace: No Gait Deviations General Gait Pattern Antalgic,Decreased Stride Length,Decreased Feet Clearance Factors Limiting Gait Function Factors Limiting Gait Function Decreased Activity Tolerance, Decreased Strength, Incoordination,Poor Balance, Poor Safety Awareness Comments Gait Comments pls refer to mobility section. PT-Balance Assessment Sitting Balance and Reactions Static Sitting Balance Ability Good Dynamic Sitting Balance Ability Good Standing Balance and Reactions Static Standing Balance Ability Fair Dynamic Standing Balance Ability Poor M5 PT-IP Objective Assessments Start: 07/12/19 15:46 Freq: NEEDED Status: Active Protocol: Document 07/12/19 15:00 AB (Rec: 07/12/19 16:10 AB [id number]) Orientation Orientation/Cognition Level of Alertness Alert Orientation Name,Age,Birthday,Month,Date, Year,Place,Situation Language Function Ability No Deficits Noted Safety Awareness Decreased Safety Awareness Gross Range of Motion Lower Extremity ROM Assessment Within Functional Limits Strength Lower Extremity Strength Assessment Left Impaired Hip 4-/5 Knee 3+/5 Ankle 3+/5 Coordination Assessment Gross Coordination Gross Coordination Impaired Assessment Finger to Nose Test Minimal Impairment Pronation/Supination Test Minimal Impairment Sensation Assessment Sensation Gross Sensation WNL M6 PT-IP Treatment Start: 07/12/19 15:46 Freq: NEEDED Status: Active Protocol: Document 07/12/19 15:00 AB (Rec: 07/12/19 16:10 AB [id number]) Physical Therapy Treatment Education Education Provided Safety M7 PT-IP Assessment and Plan Start: 07/12/19 15:46 Freq: NEEDED Status: Active Protocol: Document 07/12/19 15:00 AB (Rec: 07/12/19 16:10 AB [id number]) PT Summary Assessment and Plan Potential Rehabilitation Potential Good Status of Condition at Evaluation Evolving Summary Impairments Pain,ROM,Strength,Balance, Coordination,Tone,Bed Mobility ,Transfers,Gait,Activity Tolerance Assessment Summary pt requiring mod A x 2 with ambulation, presents with unsteadiness with standing and ambulation and has decrease motor planning, coordination affecting mobility level. pt will benefit from acute rehab to improve strength and functional independence prior to d/c home. Goals Bed Mobility Goal Independent Transfer Goal Independent,Front Wheeled Walker Gait Goal Independent,Front Wheel Walker Gait Distance 150 Other Goals up/down 2 steps without rails CGA Days to Meet Goals 10 Frequency of Treatment Frequency Of Treatment Twice a Day Treatment Plan Physical Therapy Treatment Plan Bed Mobility Training,Transfer Training,Gait Training, Therapeutic Exercise,Balance Retraining,Discharge Planning, Neuromuscular Re-ed, Coordination Retraining Other Recommendations and Next Treatment standing balance, ambulation Focus Recommendations To Nursing Amount of Assist Needed 1 Person Assist Discharge Recommendations PT Discharge Recommendations Acute Rehab Equipment Needed for Home Before FWW if pt goes home Discharge
--- NOTE | 2019-07-12 15:08 | OT.IP.EVAL ---
Past Medical History (Last Reviewed 07/12/19 @ 11:10 by Anca Hahn DO) Hypertension (Chronic Unknown) Surgical History (Last Reviewed 07/12/19 @ 11:10 by Anca Hahn DO) History of tonsillectomy (1946) Status post hysterectomy (1977) Occupational Therapy Inpatient Evaluation/Re-Eval M1 PT/OT-IP Prior Functional Status Start: 07/12/19 16:03 Freq: NEEDED Status: Active Protocol: Document 07/12/19 16:04 [facility] (Rec: 07/12/19 16:35 [facility] [id number]) Medical Review Prior Functional Status Medical History Reviewed Yes Communication Independent. Mobility and Gait Independent with no devices. 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 Social History Household Members other Living Arrangements House Number of Floors (Floors) One Floor Number of Stairs To Enter/Railing? 2 steps with no rails Home Environment Standard Height Toilet,Walk in Shower M2 OT-IP Current Condition Start: 07/12/19 16:03 Freq: Status: Active Protocol: Document 07/12/19 16:04 [facility] (Rec: 07/12/19 16:35 [facility] [id number]) Occupational Therapy Current Condition Current Condition Evaluation Date 07/12/19 Treatment Diagnosis Left sided weakness Diagnosis Onset Date 07/12/19 Weight Bearing Status Weight Bearing Status Weight Bear as Tolerated M3 OT- IP Subjective and Pain Start: 07/12/19 16:03 Freq: Status: Active Protocol: Document 07/12/19 16:04 [facility] (Rec: 07/12/19 16:35 [facility] [id number]) OT- Subjective Occupational Therapy Visit Type Type Initial Evaluation Visit Start Time 15:08 Visit Stop Time 15:58 Total Visit Minutes 50 Occupational Therapy Visit Comments Patient Comments Pt willing to get up for OT eval. PT and CLOTHES SEPARATOR also present during eval. OT Pain Assessment Pain When Pain Assessed At Rest Pain Present Pain Present Denied Pain M4 OT- IP ADL's Start: 07/12/19 16:03 Freq: Status: Active Protocol: Document 07/12/19 16:04 [facility] (Rec: 07/12/19 16:35 [facility] [id number]) OT YJG-[facility]ev-[facility] General Evaluation Self-Feeding Ability Standby Assistance Areas Needing Assistance Opening Containers Comments OT Self-Feeding Comments Pt mainly just able to use left hand to hold containers and needing assist with set-up for opening items. Pt able to eat independently with hand to mouth with right hand. CLOTHES SEPARATOR in and able to educated pt to look to the left to swallow due to weakness on left side. Pt needing intial cue to clear her mouth on the left side with her tongue. OT ADL-Grooming Comments OT Grooming Comments Not completed. OT ADL-Dressing Comments OT Dressing Comments Not completed at this time. M5 OT- IP IADL's Start: 07/12/19 16:03 Freq: Status: Active Protocol: Document 07/12/19 16:04 [facility] (Rec: 07/12/19 16:35 [facility] [id number]) OT-Instrumental Activities of Daily Living Home Safety Awareness Home Safety Comments Pt able to answer all home safety questions with good accuracy. M6 OT- IP Functional Cognition Start: 07/12/19 16:03 Freq: Status: Active Protocol: Document 07/12/19 16:04 [facility] (Rec: 07/12/19 16:35 [facility] [id number]) Cognitive Factors Limiting Selfcare Function Cognitive Ability Level of Alertness Alert Patient Orientation Name,Age,Birthday,Month,Date, Year,Day of Week,Place, Situation Attention Span Ability Capable of Focused Attention, Capable of Sustained Attention Ability to Follow Commands Able to Follow One Step Commands Cognitive Comments Cognitive Assessment Comments Pt able follow commands well and answer questions appropriately. Pt neglects use of left side and needs vc to play attention to left side and use it. OT- Vision and Hearing OT- Hearing Assessment OT- Hearing Assessment WFL OT- Vision Assessment Visual Attentiveness WFL Occular Pursuits WFL Visual Diggs WFL M7 OT- IP Mobility and Balance Start: 07/12/19 16:03 Freq: Status: Active Protocol: Document 07/12/19 16:04 [facility] (Rec: 07/12/19 16:35 [facility] [id number]) OT- Bed Mobility Assessment Rolling Type of Rolling Roll to Left Supine to Sit Supine to Sit Assist Minimal Assistance OT-Transfer Assessment Sit to and From Stand Sit to and from Stand Moderate Assistance Transfers Transfer Ability Moderate Assistance,2 Person Assistance Technique Transfer Destination Bed Devices Transfer Assistive Devices Gait Belt,Front Wheeled Walker Comments Mobility Comments Pt needing assist for LLE control and assist to help place LUE on the FWW. Due to weakness of LUE needing another person to assist to guide FWW. OT- Balance Assessment Sitting Balance and Reactions Static Sitting Balance Ability Fair Standing Balance and Reactions Static Standing Balance Ability Poor Dynamic Standing Balance Ability Poor M8 OT- IP Objective Assessments Start: 07/12/19 16:03 Freq: Status: Active Protocol: Document 07/12/19 16:04 [facility] (Rec: 07/12/19 16:35 [facility] [id number]) OT Gross Range of Motion Upper Extremity Range of Motion Assessment Left Impaired ROM Impairments Decreased at end ranges due to weakness. OT Strength Comments Strength Comments RUE WFL, LUE 3-/5 to 3+/5 form proximal to distal. OT- Coordination Assessment Upper Extremity Finger to Nose Test Right UE Impaired Comments Coordination Comments right UE mildly impaired. OT Sensation Assessment Location Lower Extremity Light Touch Intact/Normal Upper Extremity Light Touch Intact/Normal M9 OT- IP Assessment and Plan Start: 07/12/19 16:03 Freq: Status: Active Protocol: Document 07/12/19 16:04 [facility] (Rec: 07/12/19 16:35 [facility] [id number]) OT Summary Assessment and Plan Potential Rehabilitation Potential Excellent Analytic Complexity at Evaluation Low Summary OT Impairments Balance,Coordination, Functional Mobility,Self- Feeding,Grooming,Dressing, Toileting,Bathing,Toilet Transfers,Shower Transfers Progress Towards Goals Progressing Toward Goals Assessment Summary Pt low complexity and main barriers are LUE and LLE weakness, decreased balance, decreased awareness/neglect of LUE/LLE at this time and now needing assist for ADl and functional mobility needs. Pt would benefit from acute rehab pending if able to tolerate 3 hours of therapy. Pt has CLOTHES SEPARATOR,OT, and PT needs at this time. Goals Self-Feeding Goal Independent Grooming Goal Independent Dressing Goal Standby Assistance Toileting Goal Standby Assistance Bathing Goal Minimal Assistance Toilet Transfer Goal Contact Guard Assistance Shower Transfer Goal Minimal Assistance Patient/Caregiver Education Goal Caregiver Independent Assisting Patient OT-Other Goals Grooming goal while standing. Days to Meet Goals 7 Frequency of Treatment Frequency Of Treatment Twice a Day Treatment Plan OT Treatment Plan ADL Training,Functional Mobility,Neuromuscular Re- education,Patient/Family Education,Discharge Planning Other Treatment Recommendations and Next Standing at sink for grooming Treatment Focus needs. Discharge Recommendations OT Discharge Recommendations Acute Rehab Home Equipment Needs Shower chair, FWW, BSC
--- NOTE | 2019-07-12 16:11 | P.HP_ITS ---
History of Present Illness History of Present Illness Date Patient Seen: 07/12/19 Time Patient Seen: 16:15 Chief complaint: sent from clinic,considered pt had stroke Narrative: Randee Sanchez is a 78-year-old female with past medical history of hypertension and hyperlipidemia who was sent to the emergency room from her primary care clinic with symptoms consistent with a stroke. On July 10, at around 12:30 p.m. patient noted episode of dysarthria and weakness which was not localized to either side per ED report and per patient. This resolved by evaluation in the ED in the patient was discharged home after a presumed TIA with planned follow-up today in the Primary Care Clinic. When she got home she reported that she still had difficulty with walking and actually fell on to the floor. The next morning she began having left-sided facial droop, slurred and slow speech, and left-sided weakness. She went to the primary care clinic today, still with these symptoms, and was promptly referred to the ED for further evaluation. She currently complains of left sided weakness, slowed mentation, and slurred speech. She also admits to some nausea, but no chest pain. She denies any fevers or chills recently. She denies any abdominal pain, dysuria, or urinary frequency. She had palpitations a few years ago, however these resolved and has had none recently. She states that her blood pressure is well controlled normally on losartan. In the ED, her vital signs were notable for mild hypertension, but were otherwise unremarkable. Her stroke scale was 7. Her laboratory studies were also unremarkable including a negative troponin and electrolytes that were within normal limits. Urine drug screen was negative. Patient was admitted for further management after CVA. Patient History Medical History Hypertension (Chronic Unknown) Surgical History History of tonsillectomy (1945) Status post hysterectomy (1977) Family & Social History Family History Brother Heart disease Hypertension High cholesterol Child Age: 58 Crohns disease Child Age: 55 Hypertension Father Cancer Grandmother Stroke Mother Heart disease Hypertension High cholesterol Stroke Grandmother Heart disease Grandfather No problems noted. Social History: household members other Prior Living Arrangements House Safety & Behavioral: Feels Safe in Current Yes Environment Tobacco & Substance use: Smoking Status Never smoker alcohol intake never Substance Use Type does not use Meds Home Medications and Allergies Home Medications Medication Instructions Recorded Confirmed Type [CALCIUM/MAGNESIUM] 1 tab PO DAILY #0 03/16/17 07/12/19 History [VITAMIN B-12] 1 tab PO DAILY #0 03/16/17 07/12/19 History multivitamin [Multiple Vitamins] 1 tab PO DAILY #0 03/16/17 07/12/19 History [place] Berg[place] 1 cap PO DAILY 03/30/18 07/12/19 History Vitamin C 2,000 mg PO .QDAY 03/30/18 07/12/19 History Vitamin A 1 tab PO DAILY 12/28/18 07/12/19 History lysine 500 mg tablet 500 mg PO 5XW PRN tab 12/28/18 07/12/19 History aspirin 81 mg tablet,delayed 81 mg PO DAILY 07/12/19 07/12/19 History release conjugated estrogens [Premarin] 0.625 mg PO DAILY 07/12/19 07/12/19 History losartan 50 mg PO DAILY 07/12/19 07/12/19 History Allergies Allergy/AdvReac Type Severity Reaction Status Date / Time fenofibrate [FENOFIBRATE] AdvReac Intermediate hair loss Verified 07/12/19 09:47 and nails broke fluocinolone acetonide AdvReac Intermediate made my Verified 07/12/19 09:47 scalp burn. Review of Systems Review of Systems Narrative: All other systems reviewed with the patient and are negative unless otherwise stated. Exam Vital Signs (past 8 hours): - 07/12/19 10:35 07/12/19 11:15 07/12/19 11:30 Temperature 97.3 F L Pulse Rate 63 64 63 Respiratory Rate 16 16 17 Blood Pressure Blood Pressure [Right Arm] 150/92 H 155/62 H Pulse Oximetry 96 97 99 07/12/19 12:14 07/12/19 12:15 07/12/19 12:30 Temperature Pulse Rate 63 63 68 Respiratory Rate 14 15 17 Blood Pressure Blood Pressure [Right Arm] 163/65 H 163/66 H Pulse Oximetry 99 98 98 07/12/19 13:00 07/12/19 13:30 07/12/19 14:00 Temperature 97.5 F L Pulse Rate 71 68 69 Respiratory Rate 18 18 17 Blood Pressure 156/93 H Blood Pressure [Right Arm] 140/59 L Pulse Oximetry 96 97 99 07/12/19 15:45 Temperature Pulse Rate Respiratory Rate Blood Pressure Blood Pressure [Right Arm] Pulse Oximetry 99 Oxygen Delivery Method Room Air Oxygen Flow Rate 0 Narrative Exam Narrative: GENERAL APPEARANCE: Elderly female, Well developed, well nourished, in no acute distress. SKIN: Inspection of the skin reveals no rashes, ulcerations or petechiae. HEENT: The sclerae were anicteric and conjunctivae were pink and moist. Extraocular movements were intact and pupils were equal, round with normal accommodation. External inspection of the ears and nose showed no scars, lesions, or masses. Lips, teeth, and gums showed normal mucosa. The oral mucosa, hard and soft palate, tongue and posterior pharynx were unremarkable. NECK: Supple and symmetric. There was no thyroid enlargement, and no tenderness, or masses were felt. CHEST: Normal AP diameter and normal contour without any kyphoscoliosis. LUNGS: Auscultation of the lungs revealed no wheezes, rhonchi, or rales. CARDIOVASCULAR: There was a regular rate and rhythm without any murmurs, gallops, rubs. Peripheral pulses were 2+ and symmetric. ABDOMEN: Soft and nontender with normal bowel sounds. No ascites was noted. MUSCULOSKELETAL: There was no tenderness or effusions noted. Muscle strength and tone were normal. EXTREMITIES: No cyanosis, clubbing or edema. NEUROLOGIC: Alert and oriented x 3. Normal affect. Slurred speech, LUE without drift down, improved from ED exam. Stroke Scale as noted below of 4. Objective ECG Impression: Normal sinus rhythm. No evidence ischemia including ST changes or T-wave inversions. Labs Result Diagrams: 07/12/19 11:07/12/19 11:05 Labs: Laboratory Results - last 24 hr 07/12/19 07/12/19 07/12/19 11: 11:05 11:05 WBC 7.7 RBC 4.60 Hgb 14.2 Hct 42.2 MCV 91.7 MCH 30.8 MCHC 33.6 RDW 13.2 Plt Count 207 Neut % (Auto) 70.2 Lymph % (Auto) 20.5 L Whiteside % (Auto) 6.5 Eos % (Auto) 1.9 L Baso % (Auto) 0.9 Neut # (Auto) 5400 Lymph # (Auto) 1600 Whiteside # (Auto) 500 Eos # (Auto) 100 Baso # (Auto) 100 PT 10.8 INR 0.9 APTT 29 Sodium 139 Potassium 4.5 Chloride 102 Carbon Dioxide 25 BUN 16 Creatinine 0.60 Estimated GFR > 60.0 BUN/Creatinine Ratio 26.7 H Glucose 108 Calcium 9.6 Troponin I < 0.012 U Morph 300 ng/mL cutoff Ur Oxycodone Screen Urine Methadone Screen Ur Barbiturates Screen U Tricyclic Antidepress Ur Phencyclidine Scrn Ur Amphetamines Screen U Methamphetamines Scrn Ur MDMA Scrn (Ecstasy) U Benzodiazepines Scrn Urine Cocaine Screen U Marijuana (THC) Screen 07/12/19 11:05 WBC RBC Hgb Hct MCV MCH MCHC RDW Plt Count Neut % (Auto) Lymph % (Auto) Whiteside % (Auto) Eos % (Auto) Baso % (Auto) Neut # (Auto) Lymph # (Auto) Whiteside # (Auto) Eos # (Auto) Baso # (Auto) PT INR APTT Sodium Potassium Chloride Carbon Dioxide BUN Creatinine Estimated GFR BUN/Creatinine Ratio Glucose Calcium Troponin I U Morph 300 ng/mL cutoff Negative Ur Oxycodone Screen Negative Urine Methadone Screen Negative Ur Barbiturates Screen Negative U Tricyclic Antidepress Negative Ur Phencyclidine Scrn Negative Ur Amphetamines Screen Negative U Methamphetamines Scrn Negative Ur MDMA Scrn (Ecstasy) Negative U Benzodiazepines Scrn Negative Urine Cocaine Screen Negative U Marijuana (THC) Screen Negative Assessment & Plan Assessment & Plan narrative: Randee Sanchez is a 78-year-old female with past medical history of hypertension and hyperlipidemia who was admitted with a CVA after approximately 36 hours left sided weakness, slurred speech, and facial droop. 1. CVA, present on admission-patient presented with the Stroke Scale of 7 but symptoms had been present for approximately 36 hours prior to arrival. On my initial on examination her stroke scale is 4. She does not have evidence of carotid disease on CTA of her neck, with less than 50% stenosis. Given her stroke scale is greater of 3, she is outside of the benefit for dual antiplatelet therapy. There is concern that this may be secondary to AFib, however she has no known diagnosis of this and had no recent palpitations. -patient presented outside of thrombolytics window. She received full-dose aspirin on arrival to the ED. -continue aspirin 81 mg daily -initiate statin therapy with high-dose statin -Obtain A1c, TSH, Lipid panel -stroke scales Q shift -speech therapy was already consulted and appreciate recommendations -occupational and physical therapy. -Obtain MRI stroke -continue telemetry -obtain TTE 2. HTN, chronic, present on admission- continue home losartan, may need to titrate this dosage up. 3. Hyperlipidemia, chronic, present on admission - -start statin therapy as noted above -will repeat lipid panel Code: Full, patient states her decision maker should she be incapacitated is her son. DVT: Lovenox daily Diet: Heart healthy with modifications per speech therapy recommendations. Scores NIHSS Level of Conciousness: Alert, keenly responsive Ask month/age: Answers both questions correctly. Open/close eyes, close hand: Performs both tasks correctly Best gaze horizontal: Normal Visual ramachandran: No visual loss Facial palsy: Minor paralysis, flattened nasolabial fold, asymmetry on smiling Left arm drift: No drift for full 10 sec Right arm drift: No drift for full 10 sec Left leg drift: Drifts down, not to bed Right leg drift: No drift for full 5 sec Limb ataxia: Absent Sensory on face/arms/legs: Normal, no sensory loss Best language: Mild to moderate, slurs some words Dysarthria: Mild to mod,some slurring Extinction or inattention: No abnormality Total NIH Stroke scale score: 4
--- NOTE | 2019-07-12 16:13 | DI.MRI.S_ITS ---
PROCEDURE: MR STROKE Pre- and post-contrast brain MRI, non-contrast brain MR angiogram, pre- and postcontrast neck MR angiogram INDICATIONS: L sided weakness, facial droop. CT negative TECHNIQUE: Brain: Noncontrast axial T1 spin echo, axial T2 fast spin echo, sagittal and axial FLAIR, coronal T2 fast spin echo, axial gradient echo, axial diffusion and ADC through the brain. After the administration of contrast, axial 3D VIBE of the cranial vasculature and brain. Brain MRA: Non-contrast 3-D time of flight MR angiogram, with multiple dpcakhe-hkynpvbfs-lvrphqkwhv (MIP) reformats performed. Neck MRA: Axial and sagittal TruFISP through the neck. Coronal dynamic MR angiogram during administration of contrast in the arterial and venous phases, with 3-dimenstional xcvmxpk-drizyilpt-hiqximqzry (MIP) reformats constructed from subtraction images. COMPARISON: CTA head and neck earlier today, 07/10/2019. FINDINGS: Image quality: Excellent. BRAIN: CSF spaces: Ventricles are normal in size and shape. Basal cisterns are patent. No extra-axial fluid collections. Brain: No intracranial bleeds or mass effects. Mild T2 hyperintensity and restricted diffusion in the posterior limb of the right internal capsule consistent with acute infarction. Brainstem appears normal. Normal intravascular flow voids are present. No abnormal intracranial enhancement. A few scattered small flair hyperintensities. Skull and face: Calvarial marrow signal is normal. Orbits appear normal. Sinuses: Sinuses and mastoids are clear. BRAIN MR ANGIOGRAM: Anterior circulation: Intracranial internal carotid arteries are normal in size and enhancement. Right anterior A1 segments of CRYS is absent or hypoplastic, unchanged. Left CRYS is widely patent. The flow within the middle cerebral arteries is normal and symmetric. The anterior communicating artery is seen. No stenoses, occlusions, or aneurysms. Posterior circulation: Posterior communicating arteries are hypoplastic or absent. The visualized portions of the vertebral arteries demonstrate normal caliber, and join to form a normal appearing basilar artery. The flow within the posterior cerebral arteries is normal and symmetric. No stenoses, occlusions, or aneurysms. NECK MR ANGIOGRAM: Carotids: Great vessels demonstrate a conventional anatomy as they arise from the aortic arch. The origins of the common carotid arteries appear patent. The calibers and courses of both common carotid arteries are normal. The bifurcation regions appear normal bilaterally. The internal carotid arteries demonstrate normal course and caliber. Posterior circulation: The origins of the vertebral arteries appear patent. More superior portions of both vertebral arteries demonstrate normal course and caliber, and join to form a normal appearing basilar artery. Miscellaneous: Subclavian arteries appear patent. Pre-contrast images through the neck show no soft tissue abnormalities. IMPRESSION: BRAIN MRI: Small lacunar infarct in the right posterior limb of the internal capsule, likely subacute. BRAIN MR ANGIOGRAM: No large vessel occlusion. Hypoplastic or absent right A1 CRYS and posterior communicating arteries. NECK MR ANGIOGRAM: No significant ICA stenosis. Comment: Findings were discussed with Dr. Pastrana at the time of dictation. Dictated by: William Chery M.D. on 07/12/2019 at 18:40 Approved by: William Chery M.D. on 07/12/2019 at 18:58
--- NOTE | 2019-07-12 17:13 | ST.IPIE ---
Visit Care Team Role Provider Type Maame Johnson PA-C Primary Care Provider Advanced Practice Administrator Specialty: Medical Address: [address] [place] [address], [address], [place], [address] Email: [email or web address] Anca Hahn DO Emergency Provider Physician Specialty: Emergency Medicine Address: [address] [place] [address], [address] Email: [email or web address] DO Admit Provider Physician Attending Provider Specialty: Internal Medicine Address: [address] [place] [address], [address] Email: [email or web address] Past Medical History (Last Reviewed 07/12/19 @ 11:10 by Anca Hahn DO) Hypertension (Chronic Medical Unknown) ST IP Initial Evaulation Report 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 John Pastrana Reason for Referral CVA Protocol Visit Type Note Type Initial Evaluation Next Note Type Next Note Type Treatment Note Patient Information Identification Type Name,ID Card History 78-yr-old female who was seen in ED for TIA on Jul 10, now returning with recurrence of dysarthria and left side weakness. On Jul 10, symptoms resolved in ED. The pt was sent home and planned to follow up today with her PCP. Yesterday morning she began having returning/changing symptoms, has been unable to walk without feeling like she is going to fall with left facial droop, delayed speech, increased left side weakness, worsening, per H&P report. Repeat imaging shows no acute changes on head CT or CTA, though clinical suspicion of CVA was noted with recommended consideration of MRI. Subjective Observations The pt was seen shortly after arrival to acute floor, with PT and OT present. PT/OT assisted pt to bedside for swallow evaluation. The pt stated she felt her speech and voice were not normal and reported difficulty pronouncing words such as didn't. She had consumed only a few sips of soup since arrival to hospital, and she denied difficulty swallowing that. She was agreeable to swallow evaluation today and speech/language evaluation tomorrow morning. Evaluation Liquids Trialed Ice Chips,Thin Solids Trialed Puree,Dysphagia Mechanical, Mechanical Soft Administration Type Cup Single Sip,Controlled Cup Sip,Dependent Feeding Oral Impairment Mildly Impaired Oral Strategies Upright at 90 degrees,Lingual Sweep,Controlled Bite/Sip Size Oral Phase Comments Oral Peripheral exam: Mild- moderate left-side facial droop, mild lingual deviation to left upon protrusion, and left side labial weakness. Mildly reduced buccal coordination. Lingual strength WFL, coordination WNL. Soft palate elevates upon phonation . Reduced hyolaryngeal strength and excursion observed via palpation. Pt wears full upper/lower dentures which appear to be well-fitted. No asymmetry of soft palate or uvula observed. Oral Phase: Mild-moderate oral residue at left side present post-swallow. Pt was able to clear with lingual sweep and, once instructed, did so independently with subsequent swallows. Mastication was mildly slowed but WFL and rotary in nature. Otherwise, bolus prep and a/p propulsion appear to be WFL and swallow trigger is timely. Pharyngeal Impairment Moderately Impaired Pharyngeal Strategies Sitting Upright (90 deg),Turn Head Left,Small Bites and Sips Pharyngeal Phase Comments Pt was first presented with ice chip, which she swallowed without overt s/sx of aspiration. She then exhibited immediate strong cough with single sip of thin liquid from cup. Pt was instructed to turn her head to left prior to swallow and consumed additional thin liquid and all solid textures without coughing. Occasional throat clearing was observed and wet vocal quality was observed x1, which cleared with cough and swallow. These signs indicate left side weakness of pharyngeal and/or laryngeal musculature and reduced airway protection, improved with head turn to weak (left) side. The pt was able to follow and recall instructions for head turn and lingual sweep independently Findings Dysphagia Type Mild Oral and Moderate Pharyngeal Dysphagia Rehabilitation Potential Good Impressions Dysphagia secondary to left side weakness of swallow musculature, resulting in reduced bolus control and clearance of oral cavity and reduced airway protection. The pt was able to follow instructions and independently perform lingual sweep to clear oral cavity and eliminate left side pocketing, as well as perform head turn to left with swallows of both liquids and solids, indicating cognitive skills sufficient for use of compensatory strategies for safety. Screening of pt's speech and language was performed. No episodes of word finding difficulties were demonstrated . Pt's speech appears to be mildly dysarthric, requiring the pt to occasionally reduce her rate of speech and repeat multi-syllabic words. She followed simple directions and exhibited delayed recall of instructions and participated appropriately in basic conversation, demonstrating expressive and receptive language skills adequate to express her basic wants and needs and receive instruction from medical staff. More thorough speech and language evaluation will take place tomorrow morning. The pt's voice was perceived to be WNL; however, she complained that it did not sound normal to her . This also will be followed up on tomorrow. Diet Recommendations Liquids Order Thin Diet Order Mechanical Soft Medication Recommendations As Tolerated Additional Dietary Needs Single Sips,No Straws, Reminders to Use Strategies Aspiration Precautions Recommended Precautions Upright at 90 Degrees,Small Bites/Sips,Lingual Sweep,Left Head Turn Treatment Plan Placement Recommendations after Home Discharge Appropriate for Therapy Yes Therapy Recommendations Speech/Language evaluation. Voice evaluation if warranted. Training of compensatory swallow strategies and exercises to improve swallow safety. Pt/Family education Dysphagia Goals 1. The pt will use compensatory swallow strategies (head turn to left, lingual sweep, single cup sips) independently in 90% of opportunities to decrease risk of aspiration. 2. The pt will perform exercises to increase strength , coordination and ROM of swallow musculature to improve swallow function and reduce risk of aspiration. 3. The pt will tolerate least restrictive diet. 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
--- NOTE | 2019-07-12 17:17 | DI.ECHO.S_ITS ---
[place] +---------+ [facility] +---------+ : : [address] : : : : [id number] : : : : Phone: [phone]+ Echocardiogram Report + + :Name: ALEYDA ALEXANDER Study Date: 07/13/2019 Height: 62 in : :[facility] Weight: 200 lb : : Gender: Female BSA: 1.9 m2 : :: 1940 Age: 78 yrs BP: 142/93 mmHg: :Reason For Study: CVA : : Performed By: Kirill De : :Referring: ADARSH COOPER : + + Interpretation Summary Left ventricular wall thickness is mildly increased. The left ventricular ejection fraction is normal. There are no focal wall motion abnormalities. The right ventricle grossly appears normal in size with probable normal systolic function. There is no Doppler evidence for an interatrial shunt. -Overall this echocardiogram shows mild changes related to hypertensive heart disease. No cardiac source of embolism was identified based on this echocardiogram. -There is no prior echocardiogram noted for this patient. Procedure: A two-dimensional transthoracic echocardiogram with color flow and Doppler was performed. The study quality was technically adequate. There is no prior echocardiogram noted for this patient. The patient was in normal sinus rhythm during the exam. Left Ventricle: The left ventricle is normal in size. Left ventricular wall thickness is mildly increased. The ejection fraction is estimated to be 60- 65%. The left ventricular ejection fraction is normal. There are no focal wall motion abnormalities. Diastolic function could not be accurately assessed due to contradictory data. Right Ventricle: The right ventricle grossly appears normal in size with probable normal systolic function. Atria: The left atrium is mildly dilated. Right atrial size is normal. There is no Doppler evidence for an interatrial shunt. Mitral Valve: There is mild mitral annular calcification. There is mild mitral regurgitation. Aortic Valve: The aortic valve is trileaflet. The aortic valve is mildly calcified. The aortic valve opens well. There is no aortic valve stenosis. No aortic regurgitation is present. Tricuspid Valve: The tricuspid valve is normal in structure and function. There is trace tricuspid regurgitation. The right ventricular systolic pressure is estimated to be at least 26 mmHg based on an estimated right atrial pressure of 3 mm Hg. Pulmonic Valve: The pulmonic valve is normal in structure and function. There is trace pulmonic regurgitation. Great Vessels: The aortic root is normal size. The ascending aorta could not be visualized. The pulmonary artery is normal size. The IVC is of normal diameter and collapses greater than 50% with a sniff. This suggests a low right atrial pressure of 3 mm Hg. Pericardium/ Pleura There is no pericardial effusion. There is no pleural effusion. MMode/2D Measurements & Calculations LVIDd: 4.1 cm LVOT diam: 2.0 cm LVIDs: 2.5 cm Ao root diam: 3.0 cm FS: 39.3 % EPSS: 0.42 cm IVSd: 1.1 cm LVPWd: 1.0 cm LV kimball. diameter/BSA (cm/m^2): 2.1 LV sys. diameter/BSA (cm/m^2): 1.3 LA dimension: 4.0 cm RA long axis: 4.5 cm LA A2 area: 21.1 cm2 RA area: 14.8 cm2 LA A4 area: 21.0 cm2 RA vol: 40.9 ml LA length (vol): 5.3 cm RA : 21.4 ml/m2 LA vol: 71.1 ml IVC diam: 1.3 cm LA vol index: 37.2 ml/m2 Doppler Measurements & Calculations Ao V2 max: 178.0 cm/sec LVOT Max Davidson: 100.0 cm/sec Ao V2 mean: 136.6 cm/sec LV V1 max P.0 mmHg Ao max P.7 mmHg LV V1 VTI: 26.2 cm Ao mean P.0 mmHg GALILEO(I,D): 1.7 cm2 Ao V2 VTI: 46.4 cm GALILEO(V,D): 1.7 cm2 sev ratio: 0.57 GALILEO indexed to BSA (cm^2/m^2): 0.89 MV E max davidson: 104.1 cm/sec TR max davidson: 243.1 cm/sec MV A max davidson: 103.2 cm/sec TR max P.6 mmHg MV E/A: 1.0 PA V2 max: 84.0 cm/sec Med Peak E' Davidson: 4.5 cm/sec PA V2 mean: 61.2 cm/sec E/E' med: 22.9 PA mean P.6 mmHg Lat Peak E' Davidson: 5.9 cm/sec PA pr(Accel): 34.1 mmHg E/E' lat: 17.7 PA Accel Time: 0.09 sec E/e' average: 20.3 MV dec time: 0.27 sec SV(LVOT): 78.9 ml Electronically signed by: Amaury Walsh M.D. on Reading Physician:07/13/2019 06:31 PM
--- NOTE | 2019-07-12 17:43 | PC.NURSE ---
Evening note: Randee conversive, oriented x 3 and to situation. Facial droop left side, reports LLE sometimes flops on me, able to pivot transfer to BSC, voided. Back to bed. IV to LAC patent & flushes with no difficulty, IV now saline locked for patient to go down for MRI. Tele on pause. VS are stable.
[2019-07-12] MEDS: ATORVASTATIN 20 MG TABLET 40 MG PO (21:58)
[2019-07-12] MEDS: ACETAMINOPHEN 325 MG TABLET 650 MG PO (21:59)
[2019-07-13 00:40] VITALS: BP 150/68; PULSE 72; RESP 19; TEMP 36.6; O2SAT 96
[2019-07-13] MEDS: SODIUM CHLORIDE 0.9% 1,000 ML 75 ML IV (00:48)
--- NOTE | 2019-07-13 01:38 | PC.NURSE ---
0110 Patient is alert and mostly oriented. Was off on age by 1 year and did not know day of week. Breath sounds CTA with RA sat of 96%. HRR with telemetry reading of SR. BP elevated at 150/68 which is consistent with previous readings. Denies nausea. BT hypoactive but states she is passing flatus. Denies dysuria, frequency or urgency; voiding on toilet and is continent. Is able to turn herself in bed. Up to bathroom with walker and 1 assist. Denies pain. NIH is 5 for continued left facial droop, weakness with slight drift in left UE, weakness in left LE and slight slurring of some words. CBG 101. Reports recent fall so fall risk score is high and bed alarm is activated.
[2019-07-13 06:10] VITALS: BP 147/72; PULSE 68; RESP 19; TEMP 36.4; O2SAT 98
[2019-07-13 07:20] LABS: Add Manual Diff / Slide Review NO; Basophils Absolute Auto 100 /uL (0-100); Basophils Percent Auto 1.4 % (0-2); Eosinophils Absolute Auto 200 /uL (0-450); Eosinophils Percent Auto 3.3 % (2-4); Hematocrit 37.8 % (36-46); Hemoglobin 12.8 g/dL (12.0-16.0); Lymphocytes Absolute Auto 1800 /uL (1100-4500); Lymphocytes Percent Auto 32.3 % (25-40); Mean Corpuscular HGB Conc 33.9 % (30-36); Mean Corpuscular Hemoglobin 31.2 PG (26-34); Mean Corpuscular Volume 92.1 fL (80-100); Monocytes Absolute Auto 400 /uL (0-900); Monocytes Percent Auto 6.9 % (3-14); Neutrophils Absolute Auto 3100 /uL (1500-7000); Neutrophils Percent Auto 56.1 % (50-75); Platelet Count 179 X10^3/uL (150-400); Red Blood Cell Count 4.11 X10^6/uL (4.0-5.2); Red Cell Distribution Width 12.9 % (11.6-14.8); White Blood Cell Count 5.5 X10^3/uL (4.5-11.0)
[2019-07-13 07:25] LABS: Hemoglobin A1C% w Est Avg Glu 5.5 % (4.0-6.0)
[2019-07-13 07:28] LABS: Blood Urea Nitrogen 12 mg/dL (7-17); Calcium 8.9 mg/dL (8.4-10.2); Carbon Dioxide 27 mmol/L (22-32); Chloride 106 mmol/L (98-107); Cholesterol 242 mg/dL (140-199); Estimated Glomerular Filt Rate > 60.0 mL/min (>60); Glucose 106 mg/dL (80-110); HDL Cholesterol 37 mg/dL (40-60); HEMOLYSIS < 15 (0-50); LDL Cholesterol Calculated 172 mg/dL (<100); Magnesium 2.3 mg/dL (1.6-2.3); Potassium 4.1 mmol/L (3.4-5.1); Sodium 139 mmol/L (137-145); Triglycerides 165 mg/dL (35-150)
[2019-07-13 07:56] LABS: TSH w/ Reflex to FT4 5.72 uIU/mL (0.47-4.68)
--- NOTE | 2019-07-13 08:15 | ST.IPSLE ---
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 No other abnormalities observed during oral motor exam. Speech is mildly dysarthric with slight articulatory imprecision during alternating motion rate and somewhat strained vocal quality. Speech rate and loudness appear within normal limits. Subjective Subjective Patient awake, but occasionally closed her eyes during our session. Oriented to self and situation, but admits to being confused about the day. - - Receptive Language Yes/No Questions Skill Level WNL Following Directions - Verbal Skill Level WNL Defining Words Skill Level WNL Auditory Comprehension Skill Level WNL Reading Comprehension Skill Level WNL Receptive Language Comments Receptive Language Comments No impairments in receptive language identified during informal assessment tasks and in conversation. - Expressive Language Automatic Speech Skill Level WNL Sentence Closure Skill Level WNL Object Naming Skill Level WNL Oral Expression Skill Level WNL Written Expression Comments Did not test Expressive Language Comments Expressive Language Comments No impairments in expressive language observed. Form, content and use of language were appropriate during structured tasks and in conversation. - Findings Language Findings No evidence of aphasia; however, patient presents with mild dysarthria. Speech is 100% intelligible, but characterized by changes in vocal quality and articulatory precision. A cognitive evaluation was not completed due to time constraints, but OT reports patient scored 24/30 on SLUMs indicating mild cognitive impairment, specific to short term recall of words and memory of a short story read aloud. Patient was able to recall swallow strategies correctly as educated on yesterday by SALES OPERATIONS ANALYSTArcelia. Recommendations Recommendations Patient has mild impairments in swallowing, speech, voice and memory secondary to CVA. Recommend ST follow-up with a focus on dysphagia education and compensation to ensure patient is able to consume meals safely. She would benefit from ongoing speech therapy at a rehab facility upon discharge to address speech and cognitive impairments in order to increase function back to baseline level prior to returning home. Without intervention, patient is at risk for decreased safety related to memory impairment. Treatment Goals Short Term Goals 1. The pt will use compensatory swallow strategies (head turn to left, lingual sweep, single cup sips) independently in 90% of opportunities to decrease risk of aspiration and consume meals safely. - able to recall verbally, needed min verbal cues for implementation during meals per OT 2. The pt will perform exercises to increase strength , coordination and ROM of swallow musculature to improve swallow function and reduce risk of aspiration. - did not perform today
[2019-07-13 08:24] LABS: Free T4, Direct Thyroxine 0.92 ng/dL (0.78-2.19)
--- NOTE | 2019-07-13 08:40 | PM.PN.1 ---
Subjective Subjective Date Patient Seen: 07/13/19 Time Patient Seen: 08:41 Interval history: Randee Sanchez is a 78-year-old female with past medical history of hypertension and hyperlipidemia who was admitted with a CVA after approximately 36 hours left sided weakness, slurred speech, and facial droop. Yesterday her MRI showed a small lacunar infarct in the right posterior limb of the internal capsule, likely subacute. Patient was seen by speech therapy and recommended for a dysphagia diet, which she has been tolerating. She was seen by Physical therapy and Occupational therapy yesterday and was recommended for acute rehab. She denies any complaints today. She is agreeable with rehab placement short term before going home. Exam Vital Signs (past 8 hours): - 07/13/19 06:10 Temperature 97.5 F L Pulse Rate 68 Respiratory Rate 19 Blood Pressure 147/72 H Pulse Oximetry 98 Oxygen Delivery Method Room Air Oxygen Flow Rate 0 Narrative Exam Narrative: GENERAL APPEARANCE: Elderly female, Well developed, well nourished, in no acute distress. SKIN: Inspection of the skin reveals no rashes, ulcerations or petechiae. HEENT: The sclerae were anicteric and conjunctivae were pink and moist. Extraocular movements were intact and pupils were equal, round with normal accommodation. External inspection of the ears and nose showed no scars, lesions, or masses. Lips, teeth, and gums showed normal mucosa. The oral mucosa, hard and soft palate, tongue and posterior pharynx were unremarkable. NECK: Supple and symmetric. There was no thyroid enlargement, and no tenderness, or masses were felt. CHEST: Normal AP diameter and normal contour without any kyphoscoliosis. LUNGS: Auscultation of the lungs revealed no wheezes, rhonchi, or rales. CARDIOVASCULAR: There was a regular rate and rhythm without any murmurs, gallops, rubs. Peripheral pulses were 2+ and symmetric. ABDOMEN: Soft and nontender with normal bowel sounds. No ascites was noted. MUSCULOSKELETAL: There was no tenderness or effusions noted. Muscle strength and tone were normal. EXTREMITIES: No cyanosis, clubbing or edema. NEUROLOGIC: Alert and oriented x 3. Normal affect. Mildly slurred speech, LUE without drift down. + facial asymmetry with L facial droop, improved smile symmetry today. Objective Labs Result Diagrams: 07/13/19 06:41 07/13/19 06:41 Labs: Laboratory Results - last 24 hr 07/12/19 07/12/19 07/12/19 11:05 11:05 11:05 WBC 7.7 RBC 4.60 Hgb 14.2 Hct 42.2 MCV 91.7 MCH 30.8 MCHC 33.6 RDW 13.2 Plt Count 207 Neut % (Auto) 70.2 Lymph % (Auto) 20.5 L [place] % (Auto) 6.5 Eos % (Auto) 1.9 L Baso % (Auto) 0.9 Neut # (Auto) 5400 Lymph # (Auto) 1600 [place] # (Auto) 500 Eos # (Auto) 100 Baso # (Auto) 100 PT 10.8 INR 0.9 APTT 29 Sodium 139 Potassium 4.5 Chloride 102 Carbon Dioxide 25 BUN 16 Creatinine 0.60 Estimated GFR > 60.0 BUN/Creatinine Ratio 26.7 H Glucose 108 Hemoglobin A1c Calcium 9.6 Magnesium Troponin I < 0.012 Triglycerides Cholesterol LDL Cholesterol, Calc HDL Cholesterol TSH Free T4 U Morph 300 ng/mL cutoff Ur Oxycodone Screen Urine Methadone Screen Ur Barbiturates Screen U Tricyclic Antidepress Ur Phencyclidine Scrn Ur Amphetamines Screen U Methamphetamines Scrn Ur MDMA Scrn (Ecstasy) U Benzodiazepines Scrn Urine Cocaine Screen U Marijuana (THC) Screen 07/12/19 07/13/19 07/13/19 11:05 06:41 06:41 WBC 5.5 RBC 4.11 Hgb 12.8 Hct 37.8 MCV 92.1 MCH 31.2 MCHC 33.9 RDW 12.9 Plt Count 179 Neut % (Auto) 56.1 Lymph % (Auto) 32.3 [place] % (Auto) 6.9 Eos % (Auto) 3.3 Baso % (Auto) 1.4 Neut # (Auto) 3100 Lymph # (Auto) 1800 [place] # (Auto) 400 Eos # (Auto) 200 Baso # (Auto) 100 PT INR APTT Sodium 139 Potassium 4.1 Chloride 106 Carbon Dioxide 27 BUN 12 Creatinine 0.60 Estimated GFR > 60.0 BUN/Creatinine Ratio 20.0 Glucose 106 Hemoglobin A1c Calcium 8.9 Magnesium 2.3 Troponin I Triglycerides 165 H Cholesterol 242 H LDL Cholesterol, Calc 172 H HDL Cholesterol 37 L TSH Free T4 U Morph 300 ng/mL cutoff Negative Ur Oxycodone Screen Negative Urine Methadone Screen Negative Ur Barbiturates Screen Negative U Tricyclic Antidepress Negative Ur Phencyclidine Scrn Negative Ur Amphetamines Screen Negative U Methamphetamines Scrn Negative Ur MDMA Scrn (Ecstasy) Negative U Benzodiazepines Scrn Negative Urine Cocaine Screen Negative U Marijuana (THC) Screen Negative 07/13/19 07/13/19 06:41 06:41 WBC RBC Hgb Hct MCV MCH MCHC RDW Plt Count Neut % (Auto) Lymph % (Auto) [place] % (Auto) Eos % (Auto) Baso % (Auto) Neut # (Auto) Lymph # (Auto) [place] # (Auto) Eos # (Auto) Baso # (Auto) PT INR APTT Sodium Potassium Chloride Carbon Dioxide BUN Creatinine Estimated GFR BUN/Creatinine Ratio Glucose Hemoglobin A1c 5.5 Calcium Magnesium Troponin I Triglycerides Cholesterol LDL Cholesterol, Calc HDL Cholesterol TSH 5.72 H Free T4 0.92 U Morph 300 ng/mL cutoff Ur Oxycodone Screen Urine Methadone Screen Ur Barbiturates Screen U Tricyclic Antidepress Ur Phencyclidine Scrn Ur Amphetamines Screen U Methamphetamines Scrn Ur MDMA Scrn (Ecstasy) U Benzodiazepines Scrn Urine Cocaine Screen U Marijuana (THC) Screen Assessment & Plan Assessment & Plan narrative: Randee Sanchez is a 78-year-old female with past medical history of hypertension and hyperlipidemia who was admitted with a CVA after approximately 36 hours left sided weakness, slurred speech, and facial droop. 1. CVA of R MCA, present on admission-patient presented with the Stroke Scale of 7 but symptoms had been present for approximately 36 hours prior to arrival. On my initial examination her stroke scale was 4. She does not have evidence of carotid disease on CTA of her neck, with less than 50% stenosis. Given her stroke scale is greater of 3, she is outside of the benefit for dual antiplatelet therapy. MRI confirmed subacute stroke in the right posterior limb of the internal capsule. This may be secondary to AFib, however she has no known diagnosis of this and had no recent palpitations. She was on oral estrogens, which I discussed with her increase her risk of stroke, and I have held this medication. -patient presented outside of thrombolytics window. She received full-dose aspirin on arrival to the ED. -continue aspirin 81 mg daily -TSH 5.72 with normal free T4, LDL 172 and patient was started on high intensity statin, A1c 5.5% -stroke scales Q shift -speech therapy was already consulted and appreciate recommendations -continue occupational and physical therapy. -MR stroke showed a small lacunar infarct in the right posterior limb of the internal capsule, likely subacute -continue telemetry -obtain TTE 2. HTN, chronic, present on admission- continue home losartan 50 mg, may need to titrate this dosage up if blood pressure remains elevated throughout today. 3. Hyperlipidemia, chronic, present on admission - -statin therapy initiated as noted above -Lipid panel with LDL of 172. 4. Subclinical hypothyroidism - Elevated TSH with normal free t4. - repeat thyroid function studies as outpatient and PMD follow up. Code: Full, patient states her decision maker should she be incapacitated is her son. DVT: Lovenox daily Diet: Dysphagia diet with modifications per speech therapy recommendations. Dispo: To acute rehab, likely 07/15 after 3 midnights. Quality VTE Deep Vein Thrombosis/Pulmonary Embolism Present on Admission: No
--- NOTE | 2019-07-13 08:49 | OT.IP.TRT ---
Current Diagnoses Cerebral infarction, unspecified (07/12/19) Occupational Therapy Treatment Note M2 OT-IP Current Condition Start: 07/12/19 16:03 Freq: Status: Active Protocol: Document 07/12/19 16:04 [facility] (Rec: 07/12/19 16:35 [facility] [id number]) Occupational Therapy Current Condition Current Condition Evaluation Date 07/12/19 Treatment Diagnosis Left sided weakness Diagnosis Onset Date 07/12/19 Weight Bearing Status Weight Bearing Status Weight Bear as Tolerated M3 OT- IP Subjective and Pain Start: 07/12/19 16:03 Freq: Status: Active Protocol: Document 07/13/19 08:51 [facility] (Rec: 07/13/19 09:16 [facility] [id number]) OT- Subjective Occupational Therapy Visit Type Type Treatment Note Visit Start Time 08:20 Visit Stop Time 08:49 Total Visit Minutes 29 Occupational Therapy Visit Comments Patient Comments Pt in the bathroom when therapist arrived to see pt. OT Pain Assessment Pain When Pain Assessed At Rest Pain Present Pain Present Denied Pain M4 OT- IP ADL's Start: 07/12/19 16:03 Freq: Status: Active Protocol: Document 07/13/19 08:51 [facility] (Rec: 07/13/19 09:16 [facility] [id number]) OT CKC-Wzjp-Tlattsn General Evaluation Self-Feeding Ability Standby Assistance Areas Needing Assistance Opening Containers Comments OT Self-Feeding Comments Pt needing PATT vc to turn head to the left when swallowing and cue to take smaller bites. Pt needing cues to use left hand to hold onto apple sauce cup. OT ADL-Toileting General Evaluation Toileting Ability Minimal Assistance Areas Needing Assistance Manage Clothing Comments OT Toileting Comments Pt able to wipe with right hand and needing assist to help pull up pants up over the left hip due to decreased strength with left hand. M5 OT- IP IADL's Start: 07/12/19 16:03 Freq: Status: Active Protocol: Document 07/12/19 16:04 [facility] (Rec: 07/12/19 16:35 [facility] [id number]) OT-Instrumental Activities of Daily Living Home Safety Awareness Home Safety Comments Pt able to answer all home safety questions with good accuracy. M6 OT- IP Functional Cognition Start: 07/12/19 16:03 Freq: Status: Active Protocol: Document 07/13/19 08:51 [facility] (Rec: 07/13/19 09:16 [facility] [id number]) Cognitive Factors Limiting Selfcare Function Cognitive Ability Level of Alertness Alert Patient Orientation Name,Age,Birthday,Month,Date, Year,Day of Week,Place, Situation Attention Span Ability Capable of Focused Attention, Capable of Sustained Attention Ability to Follow Commands Able to Follow One Step Commands Memory Description Short Term Impaired Safety Awareness Underestimates Need for Assistance Cognitive Tests SLUMS Pt scored 24/30 which implies mild cognitive impairment. For pt's education normal score is 27/30. Pt named 14 animals in one minute, only able to recall 2/5 words,able to answer 3/4 questions after a paragraph read. 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 Cognitive Comments Cognitive Assessment Comments Pt still having neglect to left side today and needing cues to look to the left as well as use other hand. M7 OT- IP Mobility and Balance Start: 07/12/19 16:03 Freq: Status: Active Protocol: Document 07/13/19 08:51 [facility] (Rec: 07/13/19 09:16 [facility] [id number]) OT-Transfer Assessment Sit to and From Stand Sit to and from Stand Contact Guard Assistance Transfers Transfer Ability Contact Guard Assistance Technique Transfer Destination Chair,Toilet Devices Transfer Assistive Devices Front Wheeled Walker Comments Mobility Comments Pt able to use left hand better to hold FWW however still has trouble to grasp and needing assist to keep FWW closer. PATT for balance especially during turns as pt more off balanced with left leg. OT- Balance Assessment Sitting Balance and Reactions Static Sitting Balance Ability Good Dynamic Sitting Balance Ability Fair Standing Balance and Reactions Static Standing Balance Ability Fair M8 OT- IP Objective Assessments Start: 07/12/19 16:03 Freq: Status: Active Protocol: Document 07/12/19 16:04 [facility] (Rec: 07/12/19 16:35 [facility] [id number]) OT Gross Range of Motion Upper Extremity Range of Motion Assessment Left Impaired ROM Impairments Decreased at end ranges due to weakness. OT Strength Comments Strength Comments RUE WFL, LUE 3-/5 to 3+/5 form proximal to distal. OT- Coordination Assessment Upper Extremity Finger to Nose Test Right UE Impaired Comments Coordination Comments right UE mildly impaired. OT Sensation Assessment Location Lower Extremity Light Touch Intact/Normal Upper Extremity Light Touch Intact/Normal M9 OT- IP Assessment and Plan Start: 07/12/19 16:03 Freq: Status: Active Protocol: Document 07/13/19 08:51 [facility] (Rec: 07/13/19 09:16 [facility] [id number]) OT Summary Assessment and Plan Potential Rehabilitation Potential Excellent Analytic Complexity at Evaluation Low Summary OT Impairments Balance,Coordination, Functional Mobility,Self- Feeding,Grooming,Dressing, Toileting,Bathing,Toilet Transfers,Shower Transfers Progress Towards Goals Progressing Toward Goals Assessment Summary Pt doing better today with functional mobility, however still having weakness and needing assist for FMS/control with LUE, to be able to open containers, pull up pants on the left side, and difficulty to control and coordinate movements for ADL needs. Pt would highly benefit form acute rehab and very motivated to get better. Goals Self-Feeding Goal Independent Grooming Goal Independent Dressing Goal Independent Toileting Goal Independent Bathing Goal Standby Assistance Toilet Transfer Goal Independent Shower Transfer Goal Standby Assistance Patient/Caregiver Education Goal Caregiver Independent Assisting Patient OT-Other Goals Grooming goal while standing. Days to Meet Goals 7 Frequency of Treatment Frequency Of Treatment Twice a Day Treatment Plan OT Treatment Plan ADL Training,Functional Mobility,Neuromuscular Re- education,Patient/Family Education,Discharge Planning Other Treatment Recommendations and Next Standing at sink for grooming Treatment Focus needs. Discharge Recommendations OT Discharge Recommendations Acute Rehab
[2019-07-13 08:51] VITALS: BP 142/93; PULSE 70; RESP 17; TEMP 36.8; O2SAT 97
[2019-07-13] MEDS: MULTIVITAMIN 1 TABLET 1 TAB PO (09:40)
[2019-07-13] MEDS: ENOXAPARIN 40 MG/0.4 ML SYRINGE SUBCUT (09:40)
[2019-07-13] MEDS: ASPIRIN EC 81 MG TABLET PO (09:40)
[2019-07-13] MEDS: LOSARTAN 50 MG TABLET PO (09:40)
--- NOTE | 2019-07-13 10:30 | PT.IPTN ---
Current Diagnoses Cerebral infarction, unspecified (07/12/19) Physical Therapy Treatment Note M2 PT-IP Current Condition Start: 07/12/19 15:46 Freq: NEEDED Status: Active Protocol: Document 07/12/19 15:00 [facility] (Rec: 07/12/19 16:10 AB [id number]) Physical Therapy Current Condition Current Condition Evaluation Date 07/12/19 Treatment Diagnosis CVA; difficulty in walking Onset Date 07/12/19 Precautions Other Precautions Falls M3 PT-IP Subjective Start: 07/12/19 15:46 Freq: NEEDED Status: Active Protocol: Document 07/13/19 11:25 [facility] (Rec: 07/13/19 11:36 [facility] [id number]) Subjective Physical Therapy Visit Type Type Treatment Note Visit Start Time 10:05 Visit Stop Time 10:30 Total Visit Minutes 25 Number of SUPERVISOR BENZENE REFINING Visits 1 Physical Therapy Visit Comments Patient Comments Pt willing to work with therapy. M4 PT-IP Mobility and Gait Start: 07/12/19 15:46 Freq: NEEDED Status: Active Protocol: Document 07/13/19 11:25 [facility] (Rec: 07/13/19 11:36 [facility] [id number]) PT-Transfer Assessment Sit to and From Stand Sit to and from Stand Contact Guard Assistance,1 Person Assistance,Use of Upper Extremities Equipment Transfer Assistive Device Gait Belt,Front Wheeled Walker Orthotic/Prosthetic Devices or Brace: No Transfers Transfer Destination Chair Transfer Ability Level of Assist Contact Guard Assistance,1 Person Assistance,Use of Upper Extremities Gait Assessment Gait Gait Assistance Required: Contact Guard Assist,1 Person Assist Distance (Feet) 220 Able to Maintain Weight Bearing Status Yes During Gait Assistive Devices Assistive Device Gait Belt,Front Wheeled Walker Orthotic/Prosthetic Devices or Brace: No Gait Deviations General Gait Pattern Antalgic,Decreased Stride Length,Decreased Feet Clearance Factors Limiting Gait Function Factors Limiting Gait Function Decreased Activity Tolerance, Decreased Strength, Incoordination,Poor Balance, Poor Safety Awareness Functional Assessments Functional Tests 5 Times Sit to Stand 23 M5 PT-IP Objective Assessments Start: 07/12/19 15:46 Freq: NEEDED Status: Active Protocol: Document 07/12/19 15:00 AB (Rec: 07/12/19 16:10 AB [id number]) Orientation Orientation/Cognition Level of Alertness Alert Orientation Name,Age,Birthday,Month,Date, Year,Place,Situation Language Function Ability No Deficits Noted Safety Awareness Decreased Safety Awareness Gross Range of Motion Lower Extremity ROM Assessment Within Functional Limits Strength Lower Extremity Strength Assessment Left Impaired Hip 4-/5 Knee 3+/5 Ankle 3+/5 Coordination Assessment Gross Coordination Gross Coordination Impaired Assessment Finger to Nose Test Minimal Impairment Pronation/Supination Test Minimal Impairment Sensation Assessment Sensation Gross Sensation WNL M6 PT-IP Treatment Start: 07/12/19 15:46 Freq: NEEDED Status: Active Protocol: Document 07/13/19 11:25 [facility] (Rec: 07/13/19 11:36 GGD [id number]) Physical Therapy Treatment Education Education Provided Safety M7 PT-IP Assessment and Plan Start: 07/12/19 15:46 Freq: NEEDED Status: Active Protocol: Document 07/13/19 11:25 [facility] (Rec: 07/13/19 11:36 GGD [id number]) PT Summary Assessment and Plan Summary Assessment Summary Pt improving with mobility. She needed cues for keeping FWW close for transfers to chair. She improved with steadiness with gait, but had difficultly coordination left LE. Frequency of Treatment Frequency Of Treatment Twice a Day Treatment Plan Physical Therapy Treatment Plan Bed Mobility Training,Transfer Training,Gait Training, Therapeutic Exercise,Balance Retraining,Discharge Planning, Neuromuscular Re-ed, Coordination Retraining Recommendations To Nursing Amount of Assist Needed 1 Person Assist Discharge Recommendations PT Discharge Recommendations Acute Rehab
--- NOTE | 2019-07-13 12:18 | CM.DANOTE ---
Addendum entered by Monica Morgan R.N. 07/13/19 15:52: Dieudonne spoke with Sabrina from [facility]. She stated that at patients current function level they will be able to accepted her for admission with them tomorrow but if the patient continues to recover function she will not meet there intake criteria. She will be functioning to well to qualify for acute rehab services. [facility] is still reviewing just in case patient is not ready to d/c tomorrow or is not accepted due to function level. CM faxed [facility] acute rehab patients last OT note from today 07/13 to [phone] at their request. Cm department to follow closely to determine best placement option at time of d/c. Monica Morgan RN Original Note: DCP assessment: EMR reviewed: patient is a 78yr female who was admitted for Medical management post CVA. PCP is Dr. Johnson. CM met with patient at the bed side and informed patient of CM role patient was alert and oriented at time of CM visit. Patient has large Supportive family that lives here in [place]. DPOA is patients son William [phone]. Patients case disscussed in AM rounds and PT suggested SNF or Acute rehab placement at D/c. OT evaluation stated for Acute rehab placement as well. CM spoke with patient about possible SNF and acute rehab placements patient is open to go to [facility] or [facility] in [facility]. CM contacted [facility] [phone] who are reviewing for possible placement. CM contacted Shahla at [facility] who is also reviewing for possible placement. CM asked ceasar to fax clinicals to [facility] to review. Insurance: medicare 2nd: [employer]; Plan: D/C to SNF or acute rehab when medically stable. PASRR done. CM department to F/U with SNF and acute rehab facilities to find placement for D/C Monica Morgan RN. Discharge Planning/Care Management CM Discharge Assessment Start: 07/13/19 12:11 Freq: Status: Active Protocol: Document 07/13/19 12:13 HS (Rec: 07/13/19 12:16 HS [id number]) Discharge Planning Assessment Assigned Plant Anatomy Teacher Monica Morgan RN DPOA/Assigned Designee Name William Sanchez (SON) Contact Information [phone] Advance Directives? No History Provided By Patient Has Patient been admitted in last 30 No days? Prior Living Arrangements House Household Members family Type of transporation used prior to Relies on Others admit Independent with ADL's Yes Is patient alert and oriented? Yes Caregiver for Another No DME Already Rented / Owned Bath Bench,FWW / Walker Patient/Family Preference [facility] Facility Discharge Plan [facility] Facility Referrals Initiated [facility] If patient plan is SNF: Has PASSR been Yes completed? Medicare Choice List Provided Yes SNF/HH Preference Patient would like to go to [facility] rehab in [facility]. Secondary [facility] Contact Name/ Has Agency SNF been contacted Yes Whiteboard Updated in Patient Room with Yes name and ext. # of Plant Anatomy Teacher Review Status In Process Next Review Type Continued Stay Review
[2019-07-13 13:00] VITALS: BP 115/71; PULSE 73; RESP 17; TEMP 36.3; O2SAT 99
--- NOTE | 2019-07-13 14:30 | PT.IPTN ---
Current Diagnoses Cerebral infarction, unspecified (07/12/19) Physical Therapy Treatment Note M2 PT-IP Current Condition Start: 07/12/19 15:46 Freq: NEEDED Status: Active Protocol: Document 07/12/19 15:00 AB (Rec: 07/12/19 16:10 AB [id number]) Physical Therapy Current Condition Current Condition Evaluation Date 07/12/19 Treatment Diagnosis CVA; difficulty in walking Onset Date 07/12/19 Precautions Other Precautions Falls M3 PT-IP Subjective Start: 07/12/19 15:46 Freq: NEEDED Status: Active Protocol: Document 07/13/19 14:52 NAY (Rec: 07/13/19 15:12 NAY [email or web address]) Subjective Physical Therapy Visit Type Type Treatment Note Visit Start Time 14:18 Visit Stop Time 14:33 Total Visit Minutes 15 Notes Treatment supervised by PRISCILA Arechiga. Number of SUPERVISOR SHIPPING Visits 2 Physical Therapy Visit Comments Patient Comments Pt agreeable to work with therapy. M4 PT-IP Mobility and Gait Start: 07/12/19 15:46 Freq: NEEDED Status: Active Protocol: Document 07/13/19 14:52 NAY (Rec: 07/13/19 15:12 NAY [id number]) PT-Bed Mobility Assessment Supine to Sit Supine to Sit Contact Guard Assistance,1 Person Assistance Sit to Supine Sit to Supine Contact Guard Assistance,1 Person Assistance Scooting Scooting to Edge of Bed Standby Assistance PT-Transfer Assessment Sit to and From Stand Sit to and from Stand Contact Guard Assistance,1 Person Assistance,Use of Upper Extremities Equipment Transfer Assistive Device Gait Belt,Front Wheeled Walker Orthotic/Prosthetic Devices or Brace: No Transfers Transfer Destination Bed,Toilet Transfer Technique Pt ambulated with FWW. Transfer Ability Level of Assist Contact Guard Assistance,1 Person Assistance,Use of Upper Extremities Comments Mobility Comments Pt able to roll and sit EOB with CGA, but demonstrated poor safety awareness and L side neglect. Required cues for correct use of FWW for return to bed. Utilized momentum from supine to sit and again to stand from bed. Pt left in bed with all needs in reach. Bed alarm on. Gait Assessment Gait Gait Assistance Required: Contact Guard Assist,1 Person Assist Distance (Feet) 230 Able to Maintain Weight Bearing Status Yes During Gait Assistive Devices Assistive Device Gait Belt,Front Wheeled Walker Orthotic/Prosthetic Devices or Brace: No Gait Deviations General Gait Pattern Antalgic,Decreased Stride Length,Decreased Feet Clearance Factors Limiting Gait Function Factors Limiting Gait Function Decreased Activity Tolerance, Decreased Strength, Incoordination,Poor Balance, Poor Safety Awareness Comments Gait Comments Pt able to ambulate 230 ft with FWW and CGA. Required cues to increase L stride length to be equal with R. Pt is impulsive when rising from toilet and returning back to bed. M5 PT-IP Objective Assessments Start: 07/12/19 15:46 Freq: NEEDED Status: Active Protocol: Document 07/12/19 15:00 AB (Rec: 07/12/19 16:10 AB [id number]) Orientation Orientation/Cognition Level of Alertness Alert Orientation Name,Age,Birthday,Month,Date, Year,Place,Situation Language Function Ability No Deficits Noted Safety Awareness Decreased Safety Awareness Gross Range of Motion Lower Extremity ROM Assessment Within Functional Limits Strength Lower Extremity Strength Assessment Left Impaired Hip 4-/5 Knee 3+/5 Ankle 3+/5 Coordination Assessment Gross Coordination Gross Coordination Impaired Assessment Finger to Nose Test Minimal Impairment Pronation/Supination Test Minimal Impairment Sensation Assessment Sensation Gross Sensation WNL M6 PT-IP Treatment Start: 07/12/19 15:46 Freq: NEEDED Status: Active Protocol: Document 07/13/19 14:52 NAY (Rec: 07/13/19 15:12 NAY [id number]) Physical Therapy Treatment Education Education Provided Safety M7 PT-IP Assessment and Plan Start: 07/12/19 15:46 Freq: NEEDED Status: Active Protocol: Document 07/13/19 14:52 NAY (Rec: 07/13/19 15:12 NAY [id number]) PT Summary Assessment and Plan Summary Assessment Summary Pt required frequent cues and redirection for proper usage of FWW. L sided neglect noticeable during ambulation and bed mobility. Pt is consistently impulsive, unsafe with transfers, and needs instruction to perform controlled movement while getting in and out of bed. Frequency of Treatment Frequency Of Treatment Twice a Day Recommendations To Nursing Amount of Assist Needed 1 Person Assist Discharge Recommendations PT Discharge Recommendations Acute Rehab
--- NOTE | 2019-07-13 15:23 | OT.IP.TRT ---
Current Diagnoses Cerebral infarction, unspecified (07/12/19) Occupational Therapy Treatment Note M2 OT-IP Current Condition Start: 07/12/19 16:03 Freq: Status: Active Protocol: Document 07/12/19 16:04 [facility] (Rec: 07/12/19 16:35 [facility] [id number]) Occupational Therapy Current Condition Current Condition Evaluation Date 07/12/19 Treatment Diagnosis Left sided weakness Diagnosis Onset Date 07/12/19 Weight Bearing Status Weight Bearing Status Weight Bear as Tolerated M3 OT- IP Subjective and Pain Start: 07/12/19 16:03 Freq: Status: Active Protocol: Document 07/13/19 15:28 [facility] (Rec: 07/13/19 16:09 [facility] [id number]) OT- Subjective Occupational Therapy Visit Type Type Treatment Note Visit Start Time 14:30 Visit Stop Time 15:23 Total Visit Minutes 63 Notes Pt also see from [id number] for toileting needs today. Occupational Therapy Visit Comments Patient Comments Pt agreeing to do OT needs. OT Pain Assessment Pain When Pain Assessed At Rest Pain Present Pain Present Denied Pain M4 OT- IP ADL's Start: 07/12/19 16:03 Freq: Status: Active Protocol: Document 07/13/19 15:28 [facility] (Rec: 07/13/19 16:09 [facility] [id number]) OT [id number] General Evaluation Self-Feeding Ability Moderate Assistance Areas Needing Assistance Opening Containers Comments OT Self-Feeding Comments Pt needing MODA to incorporate use of LUE for self feeding needs. Assist to help pt use of left hand to help open milk carton. Assist to take film off of the apple sauce. OT ADL-Grooming General Evaluation Grooming Ability Minimal Assistance Areas Needing Assistance Retrieving/Set-up of Grooming Items Comments OT Grooming Comments Pt needing PATT to help incorporate use of left hand for grooming needs. Pt mainly using right hand as right handed. OT ADL-Dressing General Eval Upper Body Dressing Ability Minimal Assistance Lower Body Dressing Ability Moderate Assistance,Maximum Assistance Comments OT Dressing Comments Pt not able to do bra fastener , zippers ,buttons at this time, and at times neglects use of left arm and needing cues to help see what she needs to do for dressing needs . LB dressing pt needing assist to to kristopher socks as unable to grasp the sock to help put over her feet. Pt needing assist to help hold clothing items to get over her feet and also assist to help pull up over left side of her hips. OT ADL-Toileting General Evaluation Toileting Ability Minimal Assistance Areas Needing Assistance Manage Clothing Comments OT Toileting Comments Pt needing PATT to help incorporate use of left hand to grasp pants to pull up over her hips. OT ADL-Bathing Comments OT Bathing Comments Pt too tired to complete at this time and would require MODA to help incorporate use of left hand to help assist to wash the right side of her body. M5 OT- IP IADL's Start: 07/12/19 16:03 Freq: Status: Active Protocol: Document 07/12/19 16:04 [facility] (Rec: 07/12/19 16:35 [facility] [id number]) OT-Instrumental Activities of Daily Living Home Safety Awareness Home Safety Comments Pt able to answer all home safety questions with good accuracy. M6 OT- IP Functional Cognition Start: 07/12/19 16:03 Freq: Status: Active Protocol: Document 07/13/19 15:28 [facility] (Rec: 07/13/19 16:09 [facility] [id number]) Cognitive Factors Limiting Selfcare Function Cognitive Ability Level of Alertness Alert Patient Orientation Name,Age,Birthday,Month,Date, Year,Day of Week,Place, Situation Attention Span Ability Capable of Focused Attention, Capable of Sustained Attention Ability to Follow Commands Able to Follow One Step Commands Memory Description Short Term Impaired Safety Awareness Underestimates Need for Assistance Executive Function Ability Unable to Filter Distractions, Unable to Remember Details Cognitive Comments Cognitive Assessment Comments Pt not able to complete [place] Making B which assesses for mental flexibility, visual attention, executive processing and pt not able to complete the task today and only able to complete 20% of the task. Pt having difficulty to recall the instructions of the assessment. At this time pt not recommended to drive. M7 OT- IP Mobility and Balance Start: 07/12/19 16:03 Freq: Status: Active Protocol: Document 07/13/19 15:28 [facility] (Rec: 07/13/19 16:09 [facility] [id number]) OT-Transfer Assessment Sit to and From Stand Sit to and from Stand Minimal Assistance Transfers Transfer Ability Minimal Assistance Technique Transfer Destination Bedside Commode,Chair,Toilet Devices Transfer Assistive Devices Gait Belt,Front Wheeled Walker Comments Mobility Comments Pt needing PATT to help incorporate left to help push from the surface sitting on. OT- Balance Assessment Sitting Balance and Reactions Static Sitting Balance Ability Good Dynamic Sitting Balance Ability Good Standing Balance and Reactions Static Standing Balance Ability Fair M8 OT- IP Objective Assessments Start: 07/12/19 16:03 Freq: Status: Active Protocol: Document 07/13/19 15:28 [facility] (Rec: 07/13/19 16:09 [facility] [id number]) OT Gross Range of Motion Upper Extremity Range of Motion Assessment Left Impaired OT Strength Comments Strength Comments RUE WFL, LUE 3-/5 to 3+/5 form proximal to distal. OT- Coordination Assessment Comments Coordination Comments Left hand decreased for in hand manipulations and to be able to parts picker 1/2 inch objects. When distracted unable to multi-task and coordination decreases. M9 OT- IP Assessment and Plan Start: 07/12/19 16:03 Freq: Status: Active Protocol: Document 07/13/19 15:28 [facility] (Rec: 07/13/19 16:09 [facility] [id number]) OT Summary Assessment and Plan Potential Rehabilitation Potential Excellent Analytic Complexity at Evaluation Low Summary OT Impairments Balance,Coordination, Functional Mobility,Self- Feeding,Grooming,Dressing, Toileting,Bathing,Toilet Transfers,Shower Transfers Progress Towards Goals Progressing Toward Goals Assessment Summary Pt moving better physically,continues weakness and decreased coordination of LUE, and still needing reminders to incorporate left side of her body for all ADL needs. 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 Pt would highly benefit from acute rehab to help get back to prior level of independence. Pt highly motivated to get better. Goals Self-Feeding Goal Independent Grooming Goal Independent Dressing Goal Independent Toileting Goal Independent Bathing Goal Standby Assistance Toilet Transfer Goal Independent Shower Transfer Goal Standby Assistance Patient/Caregiver Education Goal Caregiver Independent Assisting Patient OT-Other Goals All goals with incorporation of LUE for all needs. Days to Meet Goals 7 Frequency of Treatment Frequency Of Treatment Twice a Day Treatment Plan OT Treatment Plan ADL Training,Functional Mobility,Neuromuscular Re- education,Patient/Family Education,Discharge Planning Other Treatment Recommendations and Next Bathing. Treatment Focus Discharge Recommendations OT Discharge Recommendations Acute Rehab Home Equipment Needs Shower chair, FWW, BSC
[2019-07-13 15:29] VITALS: BP 136/62; PULSE 87; RESP 18; TEMP 36.3; O2SAT 96
[2019-07-13 19:15] VITALS: BP 126/68; PULSE 69; RESP 18; TEMP 36.8; O2SAT 96
[2019-07-13] MEDS: ATORVASTATIN 20 MG TABLET 40 MG PO (21:00)
[2019-07-13] MEDS: ACETAMINOPHEN 325 MG TABLET 650 MG PO (21:03)
[2019-07-14 00:30] VITALS: BP 128/59; PULSE 70; RESP 20; TEMP 36.4; O2SAT 97
--- NOTE | 2019-07-14 00:54 | PC.NURSE ---
Addendum entered by Kelle Awan R.N. 07/14/19 06:42: Slept most of shift. Denies any pain this morning. CBG 115. Original Note: Patient is alert and oriented. NIH score 3 as still has slight slurring of words, left facial droop and left UE and LE weakness. Breath sounds CTA with RA sat of 97%. HRR; telemetry reading was SB w/1st degree AVB with rate of 54. Denies nausea. BT present; abdomen is soft. Able to turn self in bed. Up to bathroom with walker and 1 assist; drags left foot and has difficulty with walker due to weakness in left UE. Noted skin on lower back/buttocks is lightly pink but without open areas. Denies pain at present time. CBG 108. Fall risk score is high and bed alarm is activated.
[2019-07-14] MEDS: SODIUM CHLORIDE 0.9% 1,000 ML 75 ML IV (02:11)
[2019-07-14 04:30] VITALS: BP 148/77; PULSE 66; RESP 19; TEMP 36.7; O2SAT 96
[2019-07-14 07:22] LABS: Add Manual Diff / Slide Review NO; Basophils Absolute Auto 100 /uL (0-100); Basophils Percent Auto 1.4 % (0-2); Eosinophils Absolute Auto 200 /uL (0-450); Eosinophils Percent Auto 3.6 % (2-4); Hematocrit 38.1 % (36-46); Hemoglobin 12.8 g/dL (12.0-16.0); Lymphocytes Absolute Auto 1900 /uL (1100-4500); Lymphocytes Percent Auto 32.5 % (25-40); Mean Corpuscular HGB Conc 33.6 % (30-36); Mean Corpuscular Hemoglobin 30.8 PG (26-34); Mean Corpuscular Volume 91.6 fL (80-100); Monocytes Absolute Auto 400 /uL (0-900); Monocytes Percent Auto 7.4 % (3-14); Neutrophils Absolute Auto 3200 /uL (1500-7000); Neutrophils Percent Auto 55.1 % (50-75); Platelet Count 174 X10^3/uL (150-400); Red Blood Cell Count 4.16 X10^6/uL (4.0-5.2); Red Cell Distribution Width 12.9 % (11.6-14.8); White Blood Cell Count 5.7 X10^3/uL (4.5-11.0)
[2019-07-14 07:27] LABS: BUN Creatinine Ratio 21.7 (6-22); Blood Urea Nitrogen 13 mg/dL (7-17); Calcium 9.1 mg/dL (8.4-10.2); Carbon Dioxide 29 mmol/L (22-32); Chloride 105 mmol/L (98-107); Estimated Glomerular Filt Rate > 60.0 mL/min (>60); Glucose 104 mg/dL (80-110); HEMOLYSIS < 15 (0-50); Magnesium 2.1 mg/dL (1.6-2.3); Sodium 138 mmol/L (137-145)
--- NOTE | 2019-07-14 08:52 | PM.DS.1 ---
History of Present Illness History of Present Illness Chief complaint: sent from clinic,considered pt had stroke Narrative: Randee Sanchez is a 78-year-old female with past medical history of hypertension and hyperlipidemia who was sent to the emergency room from her primary care clinic with symptoms consistent with a stroke. On July 10, at around 12:30 p.m. patient noted episode of dysarthria and weakness which was not localized to either side per ED report and per patient. This resolved by evaluation in the ED in the patient was discharged home after a presumed TIA with planned follow-up today in the Primary Care Clinic. When she got home she reported that she still had difficulty with walking and actually fell on to the floor. The next morning she began having left-sided facial droop, slurred and slow speech, and left-sided weakness. She went to the primary care clinic today, still with these symptoms, and was promptly referred to the ED for further evaluation. She currently complains of left sided weakness, slowed mentation, and slurred speech. She also admits to some nausea, but no chest pain. She denies any fevers or chills recently. She denies any abdominal pain, dysuria, or urinary frequency. She had palpitations a few years ago, however these resolved and has had none recently. She states that her blood pressure is well controlled normally on losartan. In the ED, her vital signs were notable for mild hypertension, but were otherwise unremarkable. Her stroke scale was 7. Her laboratory studies were also unremarkable including a negative troponin and electrolytes that were within normal limits. Urine drug screen was negative. Patient was admitted for further management after CVA. Discharge Providers Provider Date of admission: 07/12/19 13:36 Discharge Date: 07/14/19 Primary care physician: Maame Johnson PA-C Consults: 07/12/19 13:48 Consult to Speech Therapy Evaluate & Treat Comment: Stroke Physician Instructions: Evaluate and treat 07/12/19 14:21 Consult to Occupational Therapy Evaluate & Treat Comment: Physician Instructions: Evaluate and treat Consult to Physical Therapy Evaluate & Treat Comment: Physician Instructions: Evaluate and Treat Discharge provider: John Pastrana DO Summary Hospital Course Discharge Diagnosis: 1. Acute CVA of R MCA, present on admission- 2. HTN, chronic, present on admission- 3. Hyperlipidemia, chronic, present on admission - 4. Subclinical hypothyroidism, present on admission Hospital Course: Randee Sanchez is a 78-year-old female with past medical history of hypertension and hyperlipidemia who was admitted with a CVA after approximately 36 hours left sided weakness, slurred speech, and facial droop. She has done well with therapies and was started on aspirin and a statin. There was no evidence of AFib on telemetry while here. 1. CVA of R MCA, present on admission-patient presented with the Stroke Scale of 7 but symptoms had been present for approximately 36 hours prior to arrival. On my initial examination her stroke scale was 4. She does not have evidence of carotid disease on CTA of her neck, with less than 50% stenosis. Given her stroke scale is greater of 3, she is outside of the benefit for dual antiplatelet therapy. MRI confirmed subacute stroke in the right posterior limb of the internal capsule. This may be secondary to AFib, however she has no known diagnosis of this and had no recent palpitations. She was on oral estrogens, which I discussed with her increase her risk of stroke, and I have held this medication. -patient presented outside of thrombolytics window. She received full-dose aspirin on arrival to the ED. -continue aspirin 81 mg daily -TSH 5.72 with normal free T4, LDL 172 and patient was started on high intensity statin, A1c 5.5% -speech therapy was already consulted and appreciate recommendations -continue therapy at acute rehab, patient is doing quite well and showing improving function daily. -MR stroke showed a small lacunar infarct in the right posterior limb of the internal capsule, likely subacute -TTE showed mild left ventricular hypertrophy, but normal ejection fraction and no diastolic dysfunction. 2. HTN, chronic, present on admission- continue home losartan 50 mg, may need to titrate this dosage up in the outpatient setting. 3. Hyperlipidemia, chronic, present on admission - -statin therapy initiated as noted above -Lipid panel with LDL of 172. 4. Subclinical hypothyroidism - Elevated TSH with normal free t4. - repeat thyroid function studies as outpatient and PMD follow up. Diet: Dysphagia diet with modifications per speech therapy recommendations. The pt will use compensatory swallow strategies (head turn to left, lingual sweep, single cup sips) independently in 90% of opportunities to decrease risk of aspiration. Dispo: To acute rehab today. Status at Discharge Cognitive/behavioral status at discharge: oriented Overall status at discharge: patient is progressing back to baseline Time Spent with Patient Time spent: Greater than 30 minutes Exam Vital Signs (past 8 hours): - 07/14/19 04:30 Temperature 98.0 F Pulse Rate 66 Respiratory Rate 19 Blood Pressure 148/77 H Pulse Oximetry 96 Oxygen Delivery Method Room Air Oxygen Flow Rate 0 Narrative Exam Narrative: GENERAL APPEARANCE: Elderly female, Well developed, well nourished, in no acute distress. SKIN: Inspection of the skin reveals no rashes, ulcerations or petechiae. HEENT: The sclerae were anicteric and conjunctivae were pink and moist. Extraocular movements were intact and pupils were equal, round with normal accommodation. External inspection of the ears and nose showed no scars, lesions, or masses. Lips, teeth, and gums showed normal mucosa. The oral mucosa, hard and soft palate, tongue and posterior pharynx were unremarkable. NECK: Supple and symmetric. There was no thyroid enlargement, and no tenderness, or masses were felt. CHEST: Normal AP diameter and normal contour without any kyphoscoliosis. LUNGS: Auscultation of the lungs revealed no wheezes, rhonchi, or rales. CARDIOVASCULAR: There was a regular rate and rhythm without any murmurs, gallops, rubs. Peripheral pulses were 2+ and symmetric. ABDOMEN: Soft and nontender with normal bowel sounds. No ascites was noted. MUSCULOSKELETAL: There was no tenderness or effusions noted. Muscle strength and tone were normal. EXTREMITIES: No cyanosis, clubbing or edema. NEUROLOGIC: Alert and oriented x 3. Normal affect. Mildly slurred speech, LUE without drift down but notably weaker compared to RUE. + facial asymmetry with L facial droop, improved smile symmetry today. Objective Labs Result Diagrams: 07/14/19 06:41 07/14/19 06:41 Labs: Laboratory Results - last 24 hr 07/14/19 07/14/19 06:41 06:41 WBC 5.7 RBC 4.16 Hgb 12.8 Hct 38.1 MCV 91.6 MCH 30.8 MCHC 33.6 RDW 12.9 Plt Count 174 Neut % (Auto) 55.1 Lymph % (Auto) 32.5 [place] % (Auto) 7.4 Eos % (Auto) 3.6 Baso % (Auto) 1.4 Neut # (Auto) 3200 Lymph # (Auto) 1900 Spencer # (Auto) 400 Eos # (Auto) 200 Baso # (Auto) 100 Sodium 138 Potassium 4.0 Chloride 105 Carbon Dioxide 29 BUN 13 Creatinine 0.60 Estimated GFR > 60.0 BUN/Creatinine Ratio 21.7 Glucose 104 Calcium 9.1 Magnesium 2.1 Discharge Plan Discharge Plan Patient Disposition: SNF Discharge comment: Randee Sanchez is a 78-year-old female with past medical history of hypertension and hyperlipidemia who was admitted with a CVA after approximately 36 hours left sided weakness, slurred speech, and facial droop. She has done well with therapies and was started on aspirin and a statin. There was no evidence of AFib on telemetry while here. 1. CVA of R MCA, present on admission-patient presented with the Stroke Scale of 7 but symptoms had been present for approximately 36 hours prior to arrival. On my initial examination her stroke scale was 4. She does not have evidence of carotid disease on CTA of her neck, with less than 50% stenosis. Given her stroke scale is greater of 3, she is outside of the benefit for dual antiplatelet therapy. MRI confirmed subacute stroke in the right posterior limb of the internal capsule. This may be secondary to AFib, however she has no known diagnosis of this and had no recent palpitations. She was on oral estrogens, which I discussed with her increase her risk of stroke, and I have held this medication. -patient presented outside of thrombolytics window. She received full-dose aspirin on arrival to the ED. -continue aspirin 81 mg daily -TSH 5.72 with normal free T4, LDL 172 and patient was started on high intensity statin, A1c 5.5% -speech therapy was already consulted and appreciate recommendations -continue therapy at acute rehab, patient is doing quite well and showing improving function daily. -MR stroke showed a small lacunar infarct in the right posterior limb of the internal capsule, likely subacute -TTE showed mild left ventricular hypertrophy, but normal ejection fraction and no diastolic dysfunction. 2. HTN, chronic, present on admission- continue home losartan 50 mg, may need to titrate this dosage up in the outpatient setting. 3. Hyperlipidemia, chronic, present on admission - -statin therapy initiated as noted above -Lipid panel with LDL of 172. 4. Subclinical hypothyroidism - Elevated TSH with normal free t4. - repeat thyroid function studies as outpatient and PMD follow up. Diet: Dysphagia diet with modifications per speech therapy recommendations. The pt will use compensatory swallow strategies (head turn to left, lingual sweep, single cup sips) independently in 90% of opportunities to decrease risk of aspiration. Dispo: To acute rehab today. Discharge Med Rec/Prescriptions Prescriptions: New acetaminophen 325 mg Tablet 650 mg PO Q6HR PRN (Reason: As Needed For Fever/Mild Pain) 30 Days Qty: 60 RF: 0 atorvastatin 40 mg tablet 40 mg PO BEDTIME 30 Days Qty: 30 RF: 0 Continued Vitamin C 2,000 mg PO .QDAY RF: 0 [place] 1 cap PO DAILY RF: 0 multivitamin [Multiple Vitamins] 1 EACH tablet 1 tab PO DAILY Qty: 0 RF: 0 [CALCIUM/MAGNESIUM] 1 tab PO DAILY Qty: 0 RF: 0 [VITAMIN B-12] 1 tab PO DAILY Qty: 0 RF: 0 lysine [L-Lysine] 500 mg tablet 500 mg PO 5XW PRN (Reason: Cold Sores) RF: 0 Vitamin A tablet 1 tab PO DAILY RF: 0 aspirin [Adult Aspirin Regimen] 81 mg tablet,delayed release (DR/EC) 81 mg PO DAILY RF: 0 losartan 50 mg tablet 50 mg PO DAILY RF: 0 Discontinued Premarin 0.625 mg tablet 0.625 mg PO DAILY RF: 0 Follow up/Referrals: Maame Johnson PA-C [Primary Care Provider] - Discharge Health Status Brief summary of current health status: Randee Sanchez is a 78-year-old female with past medical history of hypertension and hyperlipidemia who was admitted with a CVA after approximately 36 hours left sided weakness, slurred speech, and facial droop. She has done well with therapies and was started on aspirin and a statin. There was no evidence of AFib on telemetry while here. 1. CVA of R MCA, present on admission-patient presented with the Stroke Scale of 7 but symptoms had been present for approximately 36 hours prior to arrival. On my initial examination her stroke scale was 4. She does not have evidence of carotid disease on CTA of her neck, with less than 50% stenosis. Given her stroke scale is greater of 3, she is outside of the benefit for dual antiplatelet therapy. MRI confirmed subacute stroke in the right posterior limb of the internal capsule. This may be secondary to AFib, however she has no known diagnosis of this and had no recent palpitations. She was on oral estrogens, which I discussed with her increase her risk of stroke, and I have held this medication. -patient presented outside of thrombolytics window. She received full-dose aspirin on arrival to the ED. -continue aspirin 81 mg daily -TSH 5.72 with normal free T4, LDL 172 and patient was started on high intensity statin, A1c 5.5% -speech therapy was already consulted and appreciate recommendations -continue therapy at acute rehab, patient is doing quite well and showing improving function daily. -MR stroke showed a small lacunar infarct in the right posterior limb of the internal capsule, likely subacute -TTE showed mild left ventricular hypertrophy, but normal ejection fraction and no diastolic dysfunction. 2. HTN, chronic, present on admission- continue home losartan 50 mg, may need to titrate this dosage up in the outpatient setting. 3. Hyperlipidemia, chronic, present on admission - -statin therapy initiated as noted above -Lipid panel with LDL of 172. 4. Subclinical hypothyroidism - Elevated TSH with normal free t4. - repeat thyroid function studies as outpatient and PMD follow up. Diet: Dysphagia diet with modifications per speech therapy recommendations. The pt will use compensatory swallow strategies (head turn to left, lingual sweep, single cup sips) independently in 90% of opportunities to decrease risk of aspiration. Precautions: [place] Provider Discharge Instructions Liquid consistency: Normal/Thin Diet comment: Dysphagia diet as per speech therapy Special Rehabilitation Services Reason for rehabilitation: Therapy following stroke Rehab type: Physical therapy, Occupational therapy and Speech therapy Discharge Data Primary Care Provider: Maame Johnson VTE Deep Vein Thrombosis/Pulmonary Embolism Present on Admission: No
[2019-07-14 09:00] VITALS: BP 142/75; PULSE 67; RESP 14; TEMP 36.2; O2SAT 98
[2019-07-14 09:25] VITALS: BP 142/75; PULSE 67
[2019-07-14] MEDS: LOSARTAN 50 MG TABLET PO (09:25)
[2019-07-14] MEDS: MULTIVITAMIN 1 TABLET 1 TAB PO (09:26)
[2019-07-14] MEDS: ASPIRIN EC 81 MG TABLET PO (09:26)
[2019-07-14] MEDS: ENOXAPARIN 40 MG/0.4 ML SYRINGE SUBCUT (09:26)
--- NOTE | 2019-07-14 11:47 | PT.IPTN ---
Current Diagnoses Cerebral infarction, unspecified (07/12/19) Physical Therapy Treatment Note M2 PT-IP Current Condition Start: 07/12/19 15:46 Freq: NEEDED Status: Active Protocol: Document 07/12/19 15:00 AB (Rec: 07/12/19 16:10 AB [id number]) Physical Therapy Current Condition Current Condition Evaluation Date 07/12/19 Treatment Diagnosis CVA; difficulty in walking Onset Date 07/12/19 Precautions Other Precautions Falls M3 PT-IP Subjective Start: 07/12/19 15:46 Freq: NEEDED Status: Active Protocol: Document 07/14/19 11:37 AW (Rec: 07/14/19 11:47 AW [id number]) Subjective Physical Therapy Visit Type Type Treatment Note Visit Start Time 11:10 Visit Stop Time 11:25 Total Visit Minutes 15 Number of SEED SPECIALIST Visits 0 Physical Therapy Visit Comments Patient Comments Pt amenable to working with PT M4 PT-IP Mobility and Gait Start: 07/12/19 15:46 Freq: NEEDED Status: Active Protocol: Document 07/14/19 11:37 AW (Rec: 07/14/19 11:47 AW [id number]) PT-Transfer Assessment Sit to and From Stand Sit to and from Stand Minimal Assistance Equipment Transfer Assistive Device Gait Belt,Front Wheeled Walker Orthotic/Prosthetic Devices or Brace: No Transfers Transfer Destination Chair,Toilet Transfer Technique Pt ambulated with FWW. Transfer Ability Level of Assist Minimal Assistance Comments Mobility Comments Pt required cues for left hand placement on walker during transfers, but is able to paster supervisor and use the left hand once placed. Gait Assessment Gait Gait Assistance Required: Contact Guard Assist,1 Person Assist Distance (Feet) 250 Able to Maintain Weight Bearing Status Yes During Gait Assistive Devices Assistive Device Gait Belt,Front Wheeled Walker Orthotic/Prosthetic Devices or Brace: No Gait Deviations General Gait Pattern Antalgic,Decreased Stride Length,Decreased Feet Clearance,Lateral Trunk Lean Factors Limiting Gait Function Factors Limiting Gait Function Decreased Activity Tolerance, Decreased Strength, Incoordination,Poor Balance, Poor Safety Awareness Comments Gait Comments Pt ambulated 250 feet using FWW CGA. Assist required due to left lateral lean in stance with tendency to lose balance to the left. Pt required frequent cues for left heel strike in order to overcome foot drag. Also required cues to remain within the walker frame to counteract her tendency to lean left and step out of the frame, especially during turns. Pt returned to chair, call light and table within reach, family visiting. M5 PT-IP Objective Assessments Start: 07/12/19 15:46 Freq: NEEDED Status: Active Protocol: Document 07/12/19 15:00 AB (Rec: 07/12/19 16:10 AB [id number]) Orientation Orientation/Cognition Level of Alertness Alert Orientation Name,Age,Birthday,Month,Date, Year,Place,Situation Language Function Ability No Deficits Noted Safety Awareness Decreased Safety Awareness Gross Range of Motion Lower Extremity ROM Assessment Within Functional Limits Strength Lower Extremity Strength Assessment Left Impaired Hip 4-/5 Knee 3+/5 Ankle 3+/5 Coordination Assessment Gross Coordination Gross Coordination Impaired Assessment Finger to Nose Test Minimal Impairment Pronation/Supination Test Minimal Impairment Sensation Assessment Sensation Gross Sensation WNL M6 PT-IP Treatment Start: 07/12/19 15:46 Freq: NEEDED Status: Active Protocol: Document 07/14/19 11:37 AW (Rec: 07/14/19 11:47 AW [id number]) Physical Therapy Treatment Other Treatments Other Treatment Performed Pt able to stand with walker at mirror ~3 minutes with cues to find midline and for equal weightbearing. M7 PT-IP Assessment and Plan Start: 07/12/19 15:46 Freq: NEEDED Status: Active Protocol: Document 07/14/19 11:37 AW (Rec: 07/14/19 11:47 AW [id number]) PT Summary Assessment and Plan Summary Assessment Summary Pt is impulsive and continues to exhibit left-sided neglect, requiring frequent cues to slow down, keep walker frame within appropriate distance, and to maintain footfalls within walker frame. She is highly motivated and remains an excellent candidate for acute rehab Goals Bed Mobility Goal Independent Transfer Goal Independent,Front Wheeled Walker Gait Goal Independent,Front Wheel Walker Gait Distance 150 Other Goals up/down 2 steps without rails CGA Days to Meet Goals 10 Frequency of Treatment Frequency Of Treatment Twice a Day Recommendations To Nursing Amount of Assist Needed Standby Assistance Discharge Recommendations PT Discharge Recommendations Acute Rehab
--- NOTE | 2019-07-14 12:01 | CM.DPC ---
DCP: continued: case received and have spend morning following up on the d/c plan for today. Met with pt to confirm her plan for admission to Acute [facility] Rehab at [facility]. She also confirmed that she does live with her ex- Alfredo: [phone] at his home on [address] and that he will be the one to assist her after her rehab stay. Spoke with [facility] INPT rehab unit. She confirmed that pt does meet the criteria for a likely short stay (5-7 days) as long as she does leave today. They would like her to have lunch her and thus plan make for pt to leave here at 1300. She also confirmed that she had spoken last evening with PRASAD Thomas to discuss the post rehab d/c plan as this is part of their referral assessment process. Dr. Pastrana confirmed that pt is stable for the d/c today and all orders are now in place and have been faxed. (No PASRR needed as this is not a snf setting). Have spoken by phone with Don and pt's POJoselito son William and William's , all at pt's request and all are gathered now in her room with plan to drive her to the facility at 1300. REBECCA Weiss has been updated. All d/c orders and d/c summary are faxed now to the Rehab facility. Will follow prn until pt leaves.
--- NOTE | 2019-07-14 12:42 | ST.IPDYTX ---
Visit Care Team Role Provider Type Maame Johnson PA-C Primary Care Provider Advanced Waste Water Plant Operator Specialty: Medical Address: [address] [place] [address], [address], [place], [address] Email: [email or web address] Anca Hahn DO Emergency Provider Physician Specialty: Emergency Medicine Address: [address] [place] [address], [id number] Email: [email or web address] John Pastrana DO Admit Provider Physician Attending Provider Specialty: Internal Medicine Address: [address] [place] [address], [place], [address] Email: [email or web address] ENGINEER Dysphagia Treatment ASSISTANT PASSENGER LOCOMOTIVE ENGINEER Dysphagia Treatment Start: 07/12/19 16:27 Freq: Status: Active Protocol: Document 07/14/19 12:15 HOLLY (Rec: 07/14/19 12:42 HOLLY [id number]) Dysphagia Treatment Session Time Visit Start Time 11:50 Visit Stop Time 11:15 Total Visit Minutes 25 Setting Assessment Location Acute Care Visit Type Note Type Treatment Note Patient Information Subjective Observations Pt was awake and reclined in chair with family present. Pt is scheduled to dc to [facility] at 13: 30. Pt was repositioned upright in chair. Lunch tray arrived and pt was agreeable to tx with lunch. Treatment Liquids Trialed Thin Solids Trialed Dysphagia Advanced,Mechanical Soft,Regular Administration Type Straw,Self-Feeding Oral Strategies Upright at 90 degrees,Lingual Sweep,Controlled Bite/Sip Size Pharyngeal Strategies Sitting Upright (90 deg),Turn Head Left,Small Bites and Sips Treatment Activities Assessed pt's swallow safety with advanced diet textures and thin liquids with straw. The pt's lunch tray was placed before her containing bowl of soup at center, liquid at right and silverware at left. The pt commented that she did not receive a spoon to eat her soup, demonstrating continued left side visual neglect. When ASSISTANT PASSENGER LOCOMOTIVE ENGINEER pointed to silverware , the pt responded, Oh, that' s right. Look left. The pt independently recalled swallow strategy of head turn to left and employed in ~85% of opportunities. Throat clearing was observed after swallows of thin liquid when pt did not use head turn strategy. No overt s/sx of aspiration observed when head turn was employed. Mastication of regular textures was WFL. Pt independently performed lingual sweep to left cheek as needed, effectively clearing residue. Skilled education and feedback was provided RE aspiration risks/precautions, safe swallow strategies. Assessment Patient Response to Treatment Good Rehab Potential Good Assessment of Improvement Pt continues with left side neglect. Improved swallow function and safety today as compared to when this ASSISTANT PASSENGER LOCOMOTIVE ENGINEER last saw pt 2 days ago. Without head-turn to weak (left) side, the pt continues to exhibit throat clearing, indicating improved but not complete airway protection. Pt safely tolerated regular textures and demonstrated good bolus control of thin liquids with straws. Recommend upgrade to regular texture, thin liquids, straw ok, meds as tolerated. Continue head-turn to left with all swallows for airway protection. Pt verbalized understanding and was in agreement with recommendations. Diet Recommendations Recommendations Upgrade Diet Order Liquids Order Thin Diet Order Regular Medication Recommendations As Tolerated Additional Dietary Needs Controlled Sips,Reminders to Use Strategies Aspiration Precautions Recommended Precautions Upright at 90 Degrees,Small Bites/Sips,Lingual Sweep,Left Head Turn Treatment Plan Placement Recommendation after Discharge Inpatient Rehab Facility Appropriate for Continued Therapy Yes Therapy Recommendations Ongoing assessment of swallow and cognitive-linguistic skills including left side neglect. Exercises to increase strength , coordination of swallow musculature to improve swallow function and safety. Compensatory strategies as needed to reduce aspiration risk and assist pt in performing cognitive- linguistic tasks. Dysphagia Goals 1. The pt will use compensatory swallow strategies (head turn to left, lingual sweep, single cup sips) independently in 90% of opportunities to decrease risk of aspiration. 2. The pt will perform exercises to increase strength , coordination and ROM of swallow musculature to improve swallow function and reduce risk of aspiration. 3. The pt will safely tolerate regular diet, thin liquids. Follow Up Plan Continue ST services in Inpatient Rehab
--- NOTE | 2019-07-14 13:34 | PC.NURSE ---
IV and tele dc'd intact. Patient ready for discharge to [facility] acute rehab. VSS. Denies pain or other complaint. Report called to B[facility], patient traveling by private vehicle to the facility by her son and ex-. Discharge paperwork packet given to family to transport. Patient escorted out via wheelchair with all belongings.
== END 2019-07-14 13:41 | DRG 65 ==
LOC: ED 13:36 → AC 13:37
PROVIDERS: Admitting Provider Internal Medicine; Emergency Provider Emergency Medicine; PCP Physician Assistant; Visit Provider Internal Medicine
DX: I63.81 Other cerebral infarction due to occlusion or stenosis of small artery (principal); G81.94 Hemiplegia, unspecified affecting left nondominant side; I67.9 Cerebrovascular disease, unspecified; R29.707 NIHSS score 7; R47.81 Slurred speech; I10 Essential (primary) hypertension; E78.5 Hyperlipidemia, unspecified; E02 Subclinical iodine-deficiency hypothyroidism
CPT/HCPCS: 36415; 70450; 70496; 70498; 70548; 70553; 80048; 80053; 80061; 80305; 81003; 82550; 82962; 83036; 83735; 84439; 84443; 84484; 85025; 85610; 85730; 92523; 92526; 92610; 93005; 93010; 93041; 93306; 94762; 97112; 97116; 97162; 97165; 97530; 97535; 99284; 99285; A9579; J1650; Q9967

== ENCOUNTER → 2019-08-22 09:32 | Outpatient (CLI) | payer MEDICARE, SELFPAY ==
[2019-07-12 16:08] VITALS: BMI 36.6
[2019-08-22 11:15] LABS: BUN Creatinine Ratio 21.3 (6-22); Blood Urea Nitrogen 17 mg/dL (7-17); Calcium 10.1 mg/dL (8.4-10.2); Carbon Dioxide 31 mmol/L (22-32); Chloride 98 mmol/L (98-107); Cholesterol 185 mg/dL (140-199); Estimated Glomerular Filt Rate > 60.0 mL/min (>60); Glucose 107 mg/dL (80-110); HDL Cholesterol 44 mg/dL (40-60); HEMOLYSIS < 15 (0-50); LDL Cholesterol Calculated 99 mg/dL (<100); Potassium 4.3 mmol/L (3.4-5.1); Sodium 137 mmol/L (137-145); Triglycerides 209 mg/dL (35-150)
[2019-08-22 11:44] LABS: TSH w/ Reflex to FT4 4.83 uIU/mL (0.47-4.68)
[2019-08-22 14:16] LABS: Free T4, Direct Thyroxine 0.93 ng/dL (0.78-2.19)
== END ==
PROVIDERS: Family Provider Physician Assistant; PCP Physician Assistant; Visit Provider Student in an Organized Health Care Education/Training Program
DX: E78.2 Mixed hyperlipidemia (principal); I10 Essential (primary) hypertension; I63.9 Cerebral infarction, unspecified; E03.9 Hypothyroidism, unspecified
CPT/HCPCS: 36415; 80048; 80061; 84439; 84443

== ENCOUNTER → 2019-08-26 13:08 | Outpatient (CLI) | payer MEDICARE, SELFPAY ==
[2019-07-12 16:08] VITALS: BMI 36.6
== END ==
PROVIDERS: PCP Physician Assistant; Visit Provider Student in an Organized Health Care Education/Training Program
DX: Z13.820 Encounter for screening for osteoporosis (principal); M85.852 Other specified disorders of bone density and structure, left thigh; Z78.0 Asymptomatic menopausal state; M89.9 Disorder of bone, unspecified; Z91.89 Other specified personal risk factors, not elsewhere classified
CPT/HCPCS: 77080

== ENCOUNTER → 2019-09-13 16:33 | Outpatient (CLI) | payer MEDICARE, SELFPAY ==
[2019-07-12 16:08] VITALS: BMI 36.6
--- NOTE | 2019-09-13 16:36 | DI.RAD.S_ITS ---
PROCEDURE: XR KNEE LT 3V INDICATIONS: Persistent and progressive left knee pain TECHNIQUE: 3 views of the knee were acquired. COMPARISON: None. FINDINGS: Bones: No fractures or dislocations. No suspicious bony lesions. Mild medial patellofemoral compartment narrowing. Minimal periarticular osteophytes. No erosions. Soft tissues: Moderate joint effusion. No suspicious soft tissue calcifications. IMPRESSION: Moderate effusion with mild patellofemoral compartment narrowing suggestive osteoarthritis. Dictated by: Mary Flanagan M.D. on 09/13/2019 at 17:21 Approved by: Mary Flanagan M.D. on 09/13/2019 at 17:21
== END ==
PROVIDERS: PCP Family Medicine; Visit Provider Family Medicine
DX: M25.562 Pain in left knee (principal); M25.462 Effusion, left knee
CPT/HCPCS: 73562

== ENCOUNTER 2019-10-19 14:30 | Outpatient (RCR) | payer MEDICARE, SELFPAY ==
[2019-07-12 16:08] VITALS: BMI 36.6
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
--- NOTE | 2019-10-06 18:03 | PT.OPPOC ---
Physical, Occupational & Speech Therapy At [facility] Current Diagnoses Cerebral infarction, unspecified (10/06/19) Visit Care Team Role Provider Type Dony Chu DO Attending Provider Physician Primary Care Provider Specialty: [facility] Address: [address] [place] [address], [id number] Email: [email or web address] Plan Of Care PT-OP-T Assessment and Plan Start: 10/05/19 10:00 Freq: Status: Active Protocol: Document 10/06/19 09:46 MB (Rec: 10/06/19 18:02 MB [id number]) Physical Therapy Assessment Rehab Potential Rehabilitation Potential Good Evaluation Complexity Number of Personal Factors/Comorbidities 1-2 Number of Body Systems Impaired 1-2 Clinical Presentation at Evaluation Stable Impairments Impairments Balance,Gait,Pain,Posture,ROM, Strength Goals 4 Ripsawyer Goal (LTG) Pt will gait train at least 1000 feet in 6 minutes without AD to improve balace and rosaline by 12/05/2019. LTG Duration 8 weeks 3 Ripsawyer Goal (LTG) Pt will perform progressive HEP with I including strengthening, flexibility and balance exercises to increase strength and mobility by 12/04. LTG Duration 8 weeks 2 Ripsawyer Goal (LTG) Pt will perform at least 12 reps sit to stand without UE support in 30 sec to increase functional strength by 2019. LTG Duration 8 weeks 1 Custodial Goal (LTG) Pt will perform WNLs on FGA to improve balance and decrease fall risk by 12/05/2019. LTG Duration 8 weeks Assessment Summary Assessment Pt is a 78 y/o female presenting with poor gait with decreased left foot DF, push off and hip strength after stroke. She also presents with decreased balance with inability to hold right SLS greater than 3 sec and left SLS greater than 1 sec. She presents with normal sensation and [id number]. She presents with left shoulder decreased flexion and both left shoulder and LE weakness. Pt will benefit from PT for strengthening, balance, and gait to allow return to previous I lifestyle. 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 Physical Therapy Plan Frequency and Duration Frequency of Treatment 2x/Week Duration of Treatment 8 weeks Plan of Care Start Date 10/06/19 Plan of Care End Date 12/05/19 Therapeutic Interventions Therapeutic Interventions Aquatic Therapy,Balance Training,Canalithic Repositioning,Gait Training, Home Exercise Program,Manual Therapy,Neuromuscular Re- education,Patient/Caregiver Education,Self-Care/Home Management,Soft Tissue Mobilization,Taping, Therapeutic Activities, Therapeutic Exercises, Vestibular Rehabilitation Modalities Cold Pack/Ice Massage,Electric Stimulation,Hot Packs, Ultrasound Other Therapeutic Interventions LLT Next Visit Focus/Plan Next Note Type Treatment Note Next Visit Plan Initiate exercises Plan of Care Dates Plan of Care Start Date 10/06/19 Plan of Care End Date 12/05/19 Electronically Signed by: Liz Gambino, JASS 10/06/19 [id number] Please Sign and Return: I have reviewed this Plan of Care and certify that the skilled therapy services above are required to meet the patient?s needs. Physician Signature Date Printed Name and Credentials Clinical Instructor Signature Printed Name and Credentials
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
--- NOTE | 2019-10-31 14:10 | PT-OP ANOTE ---
cancelled due to appointment running late just prior to PT
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
== END 2019-11-18 13:51 ==
LOC: PHYS 14:30
PROVIDERS: PCP Family Medicine; Visit Provider Family Medicine
DX: I63.9 Cerebral infarction, unspecified (principal)
CPT/HCPCS: 97110; 97113; 97161

== ENCOUNTER → 2021-03-12 16:02 | Outpatient (CLI) | payer MEDICARE, SELFPAY ==
[2019-10-10 15:30] VITALS: BMI 36.6
--- NOTE | 2021-03-12 16:05 | DI.RAD.S_ITS ---
PROCEDURE: XR KNEE LT 3V INDICATIONS: Progressive L knee pain TECHNIQUE: 3 views of the knee were acquired. COMPARISON: [facility], , XR KNEE LT 3V, 09/13/2019, 16:41. FINDINGS: Bones: No fractures or dislocations. No suspicious bony lesions. Mild tricompartmental periarticular osteophyte formation. Soft tissues: No joint effusion. No suspicious soft tissue calcifications. IMPRESSION: Osteoarthritis. No acute fracture. No osseous lesion. If symptoms and/or clinical suspicion for pathology persist, further assessment with repeat, or advanced imaging (e.g., CT, MRI, or bone scan) may be helpful for further assessment. Dictated by: Carlene Elena M.D. on 03/12/2021 at 16:49 Approved by: Carlene Elena M.D. on 03/12/2021 at 16:49
== END ==
PROVIDERS: PCP Family Medicine; Referring Provider Family Medicine; Visit Provider Family Medicine
DX: M25.562 Pain in left knee (principal); M17.12 Unilateral primary osteoarthritis, left knee
CPT/HCPCS: 73562

== ENCOUNTER → 2021-03-13 12:42 | Outpatient (CLI) | payer MEDICARE, SELFPAY ==
[2019-10-10 15:30] VITALS: BMI 36.6
--- NOTE | 2021-03-13 12:44 | DI.MRI.S_ITS ---
PROCEDURE: MR KNEE LT WO CON INDICATIONS: Progressive left knee pain with effusion TECHNIQUE: Noncontrast sagittal PD fast spin echo and T2 fast spin echo with fat saturation, sagittal 3-D FLASH with fat saturation; coronal T1 spin echo and PD fast spin echo with fat saturation, and axial PD fast spin echo with fat saturation through the knee. COMPARISON: None. FINDINGS: Menisci: Medial meniscus: Ill-defined tear involving the medial meniscus posterior horn and body with near complete extrusion. Abnormal signal extends to the undersurface of the body and there is marked truncation of the free margin of the body. Lateral meniscus: Intact. Cruciate ligaments: Anterior cruciate ligament: Intact. Posterior cruciate ligament: Intact. Medial structures: The medial collateral ligament: Intact. Semimembranosus tendon: Intact. Visualized pes anserinus tendons: Intact. Bursal fluid: none. Lateral structures: The lateral collateral ligament demonstrates thickening and intrasubstance signal change in keeping with low grade sprain, statistically chronic, although technically age indeterminate. Biceps femoris tendon appears intact. Popliteus tendon grossly unremarkable. Iliotibial band appears intact. Anterior structures: Quadriceps tendon: Intact. Medial patellofemoral ligament: Intact. Lateral patellofemoral ligament: Intact. Patellar tendon: Mild tendinopathy. Anterior soft tissues: Prepatellar and superficial infrapatellar subcutaneous edema/fluid. Deep infrapatellar region: Small amount of fluid. Bones and cartilage: Marrow: No focal marrow contusion or discrete low signal fracture line. Prominent marrow T2 hyperintensity seen at the tibial insertion of the ACL. Technically marrow contusion in the differential however in the absence of trauma this could be early degenerative cystic changes Medial compartment: Diffuse near full-thickness or full-thickness loss of the weight-bearing central femoral and tibial cartilage. Subchondral marrow edema and early cystic change. Lateral compartment: Mild diffuse surface fraying of the femoral and tibial cartilage. There is intrasubstance signal change involving the central weight-bearing tibial cartilage. Patellofemoral compartment: Diffuse partial-thickness loss of the patellar cartilage. Mild surface fraying of the femoral trochlear cartilage. There is also mild surface fraying and partial thickness loss of the cartilage overlying the posterior medial femoral condyle Joint space: Effusion: No pathologic knee joint effusion. Popliteal fossa: No Owen's cyst. Loose bodies: None. IMPRESSION: Medial meniscal tear involving the posterior horn and body with near complete extrusion. 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 Mild patellar tendinopathy. Prominent marrow T2 hyperintensity at the tibial insertion of the ACL suspicious for early mucoid/chronic degenerative cystic change. Please see comment above. Recommend correlation to history of trauma. Dictated by: Magdi Ybarra M.D. on 03/13/2021 at 13:59 Approved by: Magdi Ybarra M.D. on 03/13/2021 at 14:08
== END ==
PROVIDERS: PCP Family Medicine; Referring Provider Family Medicine; Visit Provider Family Medicine
DX: M17.12 Unilateral primary osteoarthritis, left knee (principal); S83.242A Other tear of medial meniscus, current injury, left knee, initial encounter; M25.562 Pain in left knee; E03.9 Hypothyroidism, unspecified; I10 Essential (primary) hypertension; Z79.890 Hormone replacement therapy
CPT/HCPCS: 36415; 73721; 80053; 83036; 84439; 84443; 85025

== ENCOUNTER → 2021-03-13 13:20 | Outpatient (CLI) | payer MEDICARE, SELFPAY ==
[2019-10-10 15:30] VITALS: BMI 36.6
[2021-03-13 14:47] LABS: Add Manual Diff / Slide Review NO; Basophils Absolute Auto 100 /uL (0-100); Basophils Percent Auto 1.2 % (0-2); Eosinophils Absolute Auto 200 /uL (0-450); Eosinophils Percent Auto 3.7 % (2-4); Hematocrit 39.1 % (36-46); Hemoglobin 13.1 g/dL (12.0-16.0); Lymphocytes Absolute Auto 1300 /uL (1100-4500); Lymphocytes Percent Auto 22.3 % (25-40); Mean Corpuscular HGB Conc 33.4 % (30-36); Mean Corpuscular Hemoglobin 30.3 PG (26-34); Mean Corpuscular Volume 90.7 fL (80-100); Monocytes Absolute Auto 300 /uL (0-900); Monocytes Percent Auto 5.1 % (3-14); Neutrophils Absolute Auto 4000 /uL (1500-7000); Neutrophils Percent Auto 67.7 % (50-75); Platelet Count 191 X10^3/uL (150-400); Red Blood Cell Count 4.31 X10^6/uL (4.0-5.2); Red Cell Distribution Width 13.4 % (11.6-14.8); White Blood Cell Count 5.9 X10^3/uL (4.5-11.0)
[2021-03-13 14:59] LABS: Hemoglobin A1C% w Est Avg Glu 5.4 % (4.0-6.0)
[2021-03-13 15:45] LABS: TSH w/ Reflex to FT4 0.11 uIU/mL (0.47-4.68)
[2021-03-13 15:53] LABS: Alanine Aminotransferase 13 IU/L (<35); Albumin 4.2 g/dL (3.5-5.0); Albumin Globulin Ratio 1.2 (1.0-2.8); Alkaline Phosphatase 71 U/L (38-126); Aspartate Aminotransferase 25 IU/L (14-36); BUN Creatinine Ratio 24.7 (6-22); Bilirubin Total 0.4 mg/dL (0.2-1.3); Blood Urea Nitrogen 20 mg/dL (7-17); Calcium 9.8 mg/dL (8.4-10.2); Carbon Dioxide 27 mmol/L (22-32); Chloride 106 mmol/L (98-107); Estimated Glomerular Filt Rate > 60.0 mL/min (>60); Globulin 3.4 g/dL (1.7-4.1); Glucose 107 mg/dL (80-110); HEMOLYSIS < 15 (0-50); Potassium 4.5 mmol/L (3.4-5.1); Sodium 139 mmol/L (137-145); Total Protein 7.6 g/dL (6.3-8.2)
[2021-03-13 16:22] LABS: Free T4, Direct Thyroxine 0.87 ng/dL (0.78-2.19)
== END ==
PROVIDERS: PCP Family Medicine; Referring Provider Family Medicine; Visit Provider Family Medicine
DX: E03.9 Hypothyroidism, unspecified (principal); M25.562 Pain in left knee; I10 Essential (primary) hypertension; Z79.890 Hormone replacement therapy
CPT/HCPCS: 36415; 80053; 83036; 84439; 84443; 85025

== ENCOUNTER 2021-03-21 13:24 | Emergency (ER) | payer MEDICARE, SELFPAY ==
[2019-10-10 15:30] VITALS: BMI 36.6
[2021-03-21] VITALS (8 sets, daily range): BP systolic 142–188; BP diastolic 75–88; PULSE 75–88; RESP 18–20; TEMP 36.6; O2SAT 96–99; BMI 31.3
--- NOTE | 2021-03-21 14:14 | ED_ITS ---
HPI - General Adult General Chief complaint: Abdominal Pain Stated complaint: Having Diarrhea, Blood Pressure All Over the Place Time Seen by Provider: 03/21/21 13:46 Source: patient Mode of arrival: Ambulatory Limitations: no limitations History of Present Illness HPI narrative: 80-year-old female who is sent here from her primary doctor's office for evaluation of 2 weeks of diarrhea. No recent travel. No recent antibiotic use. No blood in her stool. Has been urinating frequently. Has some abdominal pain around the time that she has an episode of diarrhea but then it resolves in between. Has had some nausea but no vomiting. Contacted her primary doctor and they informed her to come to the emergency department for evaluation. Related Data Home Medications Medication Instructions Recorded Confirmed [CALCIUM/MAGNESIUM] 1 tab PO DAILY #0 03/16/17 03/12/21 [VITAMIN B-12] 1 tab PO DAILY #0 03/16/17 03/12/21 multivitamin (Multiple Vitamins) 1 tab PO DAILY #0 03/16/17 03/12/21 [place] 1 cap PO DAILY 03/30/18 03/12/21 Vitamin C 2,000 mg PO .QDAY 03/30/18 03/12/21 Vitamin A 1 tab PO DAILY 12/28/18 03/12/21 lysine 500 mg tablet (L-Lysine) 500 mg PO 5XW PRN tab 12/28/18 03/12/21 aspirin 81 mg tablet,delayed 81 mg PO DAILY 07/12/19 03/12/21 release (Adult Aspirin Regimen) Previous Rx's Medication Instructions Recorded triamcinolone acetonide 0.1 % 1 applictn TOP BID #15 gram 09/14/19 topical cream hydroxyzine HCl 25 mg tablet 25 mg PO BEDTIME #20 tab 10/10/19 clobetasol 0.05 % scalp solution 1 applic TOPICAL BEDTIME #25 ml 03/12/21 conjugated estrogens 0.625 mg/gram 0.625 mg VAGINAL DAILY #30 g 03/12/21 vaginal cream losartan 50 mg tablet 50 mg PO DAILY #90 tab 03/12/21 Allergies Allergy/AdvReac Type Severity Reaction Status Date / Time fenofibrate [FENOFIBRATE] AdvReac Intermediate hair loss Verified 03/12/21 15:23 and nails broke fluocinolone acetonide AdvReac Intermediate made my Verified 03/12/21 15:23 scalp burn. Review of Systems Constitutional Constitutional: Denies fever(s) Cardiovascular Cardiovascular: Denies chest pain and Denies dyspnea Respiratory Respiratory: Denies dyspnea Gastrointestinal Gastrointestinal: Denies melena, Denies hematochezia, Reports cramping, Reports diarrhea, Reports nausea and Denies vomiting Genitourinary Genitourinary: Reports system reviewed and no additional complaints, except as documented Musculoskeletal Musculoskeletal: Reports system reviewed and no additional complaints, except as documented Integumentary/Breasts Skin/Breast: Reports system reviewed and no additional complaints, except as documented Neurologic Neurologic: Reports system reviewed and no additional complaints, except as documented Hematologic/Lymphatic On Anticoagulants: No Allergic/Immunologic Allergic/Immunologic: Reports system reviewed and no additional complaints, except as documented Patient History Medical History Hypertension (Unknown) Osteoarthritis of left knee Osteopenia after menopause Postmenopausal HRT (hormone replacement therapy) Surgical History History of tonsillectomy (1945) Status post hysterectomy (1977) Family History Brother Heart disease Hypertension High cholesterol Child Age: 60 Crohns disease Child Age: 57 Hypertension Father Cancer Grandmother Stroke Mother Heart disease Hypertension High cholesterol Stroke Grandmother Heart disease Grandfather No problems noted. Social History household members: family Smoking Status: Never smoker second hand exposure: No alcohol intake: never substance use type: does not use Smoking Status: Never smoker Substance Use Type: does not use Exam Initial Vital Signs Initial Vital Signs: Vital Signs Temperature 97.8 F 03/21/21 13:41 Pulse Rate 88 03/21/21 13:41 Respiratory Rate 18 03/21/21 13:41 Blood Pressure 142/88 H 03/21/21 13:41 Pulse Oximetry 96 03/21/21 13:41 Const General: cooperative, healthy appearing and comfortable [facility] Head: normal to inspection and normocephalic Eyes General: appearance normal, both eyes and all related structures Neck Neck: normal visual inspection Resp Effort & Inspection: normal respiratory effort Auscultation: clear to auscultation bilaterally Cardio Rate: regular rate Rhythm: regular rhythm GI Inspection: normal to inspection Skin General: no rashes or lesions noted Neuro General: patient alert, patient awake and moves all extremities Extrem General: normal to inspection and capillary refill normal Psych Appearance: grossly normal and well kempt Course Orders Ordered: ED Orders 03/21/21 13:46 GI Panel (Film Array) Stat 03/21/21 13:59 Complete Blood Count AUTO DIFF Stat Comprehensive Metabolic Panel Stat Lipase Stat 03/21/21 14:13 CT abdomen pelvis w con Stat Sodium Chloride (Normal Saline 0.9%) 1,000 mls @ 500 mls/hr IV BOLUS ONE Stop: 03/21/21 16:11 Last Admin: 03/21/21 14:43 Dose: 500 mls/hr Documented by: ISAC Vital Signs Vital signs: Vital Signs - 8 hr 03/21/21 13:41 03/21/21 13:52 03/21/21 14:00 Temperature 97.8 F Pulse Rate 88 78 76 Respiratory Rate 18 Blood Pressure 142/88 H Pulse Oximetry 96 97 99 03/21/21 14:01 03/21/21 14:32 03/21/21 14:33 Temperature Pulse Rate 75 84 84 Respiratory Rate Blood Pressure 176/75 H 186/81 H Pulse Oximetry 99 97 98 03/21/21 15:00 Temperature Pulse Rate 80 Respiratory Rate Blood Pressure 172/79 H Pulse Oximetry 98 Medical Decision Making Lab Data Lab results reviewed: Yes I reviewed the patient's lab results. Result diagrams: 03/21/21 13:59 03/21/21 13:59 Labs: Lab Results 03/21/21 03/21/21 Range/Units 13:59 13:59 WBC 7.5 (4.5-11.0) X10^3/uL RBC 4.26 (4.0-5.2) X10^6/uL Hgb 12.7 (12.0-16.0) g/dL Hct 38.3 (36-46) % MCV 90.0 (80-100) fL MCH 29.8 (26-34) PG MCHC 33.1 (30-36) % RDW 13.6 (11.6-14.8) % Plt Count 179 (150-400) X10^3/uL Neut % (Auto) 73.7 (50-75) % Lymph % (Auto) 18.8 L (25-40) % [place] % (Auto) 5.4 (3-14) % Eos % (Auto) 1.2 L (2-4) % Baso % (Auto) 0.9 (0-2) % Neut # (Auto) 5500 (1519-1529) /uL Lymph # (Auto) 1400 (7569-8426) /uL [place] # (Auto) 400 (0-900) /uL Eos # (Auto) 100 (0-450) /uL Baso # (Auto) 100 (0-100) /uL Sodium 140 (137-145) mmol/L Potassium 3.8 (3.4-5.1) mmol/L Chloride 107 (98-107) mmol/L Carbon Dioxide 27 (22-32) mmol/L BUN 13 (7-17) mg/dL Creatinine 0.74 (0.52-1.04) mg/dL Estimated GFR > 60.0 (>60) mL/min BUN/Creatinine Ratio 17.6 (6-22) Glucose 107 (80-110) mg/dL Calcium 9.9 (8.4-10.2) mg/dL Total Bilirubin 0.6 (0.2-1.3) mg/dL AST 24 (14-36) IU/L ALT 14 (<35) IU/L Alkaline Phosphatase 79 (38-126) U/L Total Protein 7.4 (6.3-8.2) g/dL Albumin 4.3 (3.5-5.0) g/dL Globulin 3.1 (1.7-4.1) g/dL Albumin/Globulin Ratio 1.4 (1.0-2.8) Lipase 56 (23-300) U/L Urine Dip Bedside Urine Glucose Negative Bedside Urine Bilirubin - Negative Bedside Urine Ketone - Negative Urine Specific [place] 1.015 Bedside Urine Occult Blood - Negative Bedside Urine pH 6.0 Bedside Urine Protein - Negative Bedside Urine Urobilinogen - Negative Bedside Urine Nitrite - Negative Bedside Urine Leukocytes - Negative Esterase Point of care testing: Urine Dip Bedside Urine Glucose Negative Bedside Urine Bilirubin - Negative Bedside Urine Ketone - Negative Urine Specific [place] 1.015 Bedside Urine Occult Blood - Negative Bedside Urine pH 6.0 Bedside Urine Protein - Negative Bedside Urine Urobilinogen - Negative Bedside Urine Nitrite - Negative Bedside Urine Leukocytes - Negative Esterase Imaging Data CT scan - abdomen/pelvis: Radiologist's Impression: [address] [id number] Scan ReportSigned Patient: Randee Sanchez CMR#: [id number]: 1940cct:[id number]/Sex: 80 / FDate of Service: 03/21/21Loc: EDAccession Number: [id number] Procedure: CT abdomen pelvis w con Ordering Provider: Saw Soni D.O. PROCEDURE: CT ABDOMEN PELVIS W CON INDICATIONS: Diarrhea and generalized abdominal pain TECHNIQUE: After the administration of intravenous contrast, axial sections acquired from the lung bases to the pubic symphysis. Coronal and sagittal reformats were performed. For radiation dose reduction, the following was used: automated exposure control, adjustment of mA and/or kV according to patient size. COMPARISON: None. FINDINGS: Image quality: Excellent. Lung bases: No acute lung opacities. 6 millimeter calcified granuloma noted in the right lung base. Heart: Heart size is normal. Atherosclerotic calcifications noted in the visualized coronary vasculature. ABDOMEN: Liver: Unremarkable. Gallbladder: Contains a 2.3 centimeter calcified gallstone. Biliary ducts: Unremarkable. Pancreas: Unremarkable. Spleen: Unremarkable. Adrenal Glands: Unremarkable. Kidneys and Ureters: Unremarkable. Stomach and Bowel: Stomach, small bowel loops, and colon are unremarkable. Few scattered colonic diverticula without evidence of diverticulitis. The appendix is not visualized, however no free fluid or inflammatory changes are noted adjacent to the cecum. Peritoneum: No abnormal intraperitoneal fluid. No free air. Ventral Wall: No hernias. Abdominal Nodes: No retroperitoneal or mesenteric adenopathy by size criteria. Vessels: Aorta and inferior vena cava are normal in size. Scattered atheroscler otic calcifications involving the abdominal and pelvic vasculature. PELVIS: Pelvic Organs: Unremarkable. Bladder: Unremarkable. Pelvic Nodes: No enlarged lymph nodes. Miscellaneous: No hernias are seen. Bones: Spine degenerative disc disease and facet arthropathy. Mild convex left lower lumbar spine scoliosis. IMPRESSION: 1. No acute disease process. 2. No free fluid or free air. 3. No dilated loops of bowel. 4. Cholelithiasis. 5. Colonic diverticulosis without evidence of diverticulitis. 6. Atherosclerosis including the visualized coronary vasculature. Dictated by: Soraya Montague MD, PhD on 03/21/2021 at 15:03 Approved by: Soraya Montague MD, PhD on 03/21/2021 at 15:08 [facility] Narrative Medical decision making narrative: Afebrile. No recent travel. No recent a ntibiotics. No rashes. Abdominal discomfort is cramping around the time that she is having diarrhea. She is unable to provide us a stool sample here in the ER. CT scan of her abdomen pelvis shows no acute pathology. I feel that we can hold on further workup for now. I would like to hold on any antibiotics until she is able to provide a stool sample. We did discuss the use of anti diarrheal medications at home. She was instructed to contact her primary doctor for follow-up. She expressed understanding and agreement. Discharge Plan Departure Patient Disposition: Home Clinical Impression: Diarrhea Instructions: Diarrhea (Alternative Therapy), Diarrhea Activity Restrictions/Additional Instructions: Be sure to increase your fluid intake. I also recommend that you start taking an anti diarrheal medicine such as Imodium/loperamide. You can purchase this [id number] and please take it as directed. Contact your primary provider for a follow-up. Return to the emergency department for any new or worsening symptoms Prescriptions: No Action Vitamin C 2,000 mg PO .QDAY RF: 0 [place] 1 cap PO DAILY RF: 0 multivitamin [Multiple Vitamins] 1 EACH tablet 1 tab PO DAILY Qty: 0 RF: 0 [CALCIUM/MAGNESIUM] 1 tab PO DAILY Qty: 0 RF: 0 [VITAMIN B-12] 1 tab PO DAILY Qty: 0 RF: 0 triamcinolone acetonide 0.1 % cream 1 applictn TOP BID Qty: 15 RF: 0 hydroxyzine HCl 25 mg tablet 25 mg PO BEDTIME Qty: 20 RF: 1 lysine [L-Lysine] 500 mg tablet 500 mg PO 5XW PRN (Reason: Cold Sores) RF: 0 Vitamin A tablet 1 tab PO DAILY RF: 0 aspirin [Adult Aspirin Regimen] 81 mg tablet,delayed release (DR/EC) 81 mg PO DAILY RF: 0 losartan 50 mg tablet 50 mg PO DAILY Qty: 90 RF: 3 conjugated estrogens 0.625 mg/gram cream 0.625 mg vaginal DAILY Qty: 30 RF: 2 clobetasol 0.05 % solution 1 applic topical BEDTIME Qty: 25 RF: 1 Referrals: Dony Chu, [Primary Care Provider] -
[2021-03-21 14:17] LABS: Add Manual Diff / Slide Review NO; Basophils Absolute Auto 100 /uL (0-100); Basophils Percent Auto 0.9 % (0-2); Eosinophils Absolute Auto 100 /uL (0-450); Eosinophils Percent Auto 1.2 % (2-4); Hematocrit 38.3 % (36-46); Hemoglobin 12.7 g/dL (12.0-16.0); Lymphocytes Absolute Auto 1400 /uL (1100-4500); Lymphocytes Percent Auto 18.8 % (25-40); Mean Corpuscular HGB Conc 33.1 % (30-36); Mean Corpuscular Hemoglobin 29.8 PG (26-34); Monocytes Absolute Auto 400 /uL (0-900); Monocytes Percent Auto 5.4 % (3-14); Neutrophils Absolute Auto 5500 /uL (1500-7000); Neutrophils Percent Auto 73.7 % (50-75); Platelet Count 179 X10^3/uL (150-400); Red Blood Cell Count 4.26 X10^6/uL (4.0-5.2); Red Cell Distribution Width 13.6 % (11.6-14.8); White Blood Cell Count 7.5 X10^3/uL (4.5-11.0)
[2021-03-21 14:28] LABS: Alanine Aminotransferase 14 IU/L (<35); Albumin 4.3 g/dL (3.5-5.0); Albumin Globulin Ratio 1.4 (1.0-2.8); Alkaline Phosphatase 79 U/L (38-126); Aspartate Aminotransferase 24 IU/L (14-36); BUN Creatinine Ratio 17.6 (6-22); Bilirubin Total 0.6 mg/dL (0.2-1.3); Blood Urea Nitrogen 13 mg/dL (7-17); Calcium 9.9 mg/dL (8.4-10.2); Carbon Dioxide 27 mmol/L (22-32); Chloride 107 mmol/L (98-107); Estimated Glomerular Filt Rate > 60.0 mL/min (>60); Globulin 3.1 g/dL (1.7-4.1); Glucose 107 mg/dL (80-110); HEMOLYSIS < 15 (0-50); Lipase 56 U/L (23-300); Potassium 3.8 mmol/L (3.4-5.1); Sodium 140 mmol/L (137-145); Total Protein 7.4 g/dL (6.3-8.2)
[2021-03-21] MEDS: SODIUM CHLORIDE 0.9% 1,000 ML 500 ML IV (14:43)
== END 2021-03-21 15:48 | disposition home or self-care (01) ==
PROVIDERS: Emergency Provider Emergency Medicine; PCP Family Medicine
DX: R19.7 Diarrhea, unspecified (principal); R11.0 Nausea
CPT/HCPCS: 36415; 74177; 80053; 81003; 83690; 85025; 87045; 87899; 96360; 99284

== ENCOUNTER 2021-12-06 08:59 | Emergency (ER) | payer MEDICARE, SELFPAY ==
[2019-10-10 15:30] VITALS: BMI 36.6
[2021-12-06 09:20] VITALS: BP 200/88; PULSE 94; RESP 18; TEMP 36.9; O2SAT 99; BMI 31.1
[2021-12-06 09:35] VITALS: BP 182/80; PULSE 81; PULSE 82; O2SAT 97
[2021-12-06 09:54] VITALS: BP 186/78; PULSE 85; RESP 18; O2SAT 95
--- NOTE | 2021-12-06 09:57 | ED.SKABFB ---
HPI - Skin/Abscess/Foreign Bdy General Chief complaint: Skin/Abscess/Foreign Body Stated complaint: swelling/boil under lt arm, painful Time Seen by Provider: 12/06/21 09:08 Source: patient Mode of arrival: Ambulatory Limitations: no limitations History of Present Illness HPI narrative: 80F nonsmoker with noncontributory medical history presents with a chief complaint of 1 week of a painful lump under her left armpit. She states it was draining spontaneously earlier in the week but no longer is. She denies any fever chills nor nausea or vomiting. She states that it hurts worse when you press on her she moves her left arm Related Data Home Medications Medication Instructions Recorded Confirmed [CALCIUM/MAGNESIUM] 1 tab PO DAILY #0 03/16/17 03/26/21 [VITAMIN B-12] 1 tab PO DAILY #0 03/16/17 03/26/21 Vitamin C 2,000 mg PO .QDAY 03/30/18 03/26/21 Vitamin A 1 tab PO DAILY 12/28/18 03/26/21 lysine 500 mg tablet (L-Lysine) 500 mg PO 5XW PRN tab 12/28/18 03/26/21 aspirin 81 mg tablet,delayed 81 mg PO DAILY 07/12/19 03/26/21 release (Adult Aspirin Regimen) Previous Rx's Medication Instructions Recorded triamcinolone acetonide 0.1 % 1 applictn TOP BID #15 gram 09/14/19 topical cream hydroxyzine HCl 25 mg tablet 25 mg PO BEDTIME #20 tab 10/10/19 clobetasol 0.05 % scalp solution 1 applic TOPICAL BEDTIME #25 ml 03/12/21 conjugated estrogens 0.625 mg/gram 0.625 mg VAGINAL DAILY #30 g 03/12/21 vaginal cream losartan 50 mg tablet 50 mg PO DAILY #90 tab 03/12/21 doxycycline hyclate 100 mg tablet 100 mg PO BID #20 tab 12/06/21 Allergies Allergy/AdvReac Type Severity Reaction Status Date / Time fenofibrate [FENOFIBRATE] AdvReac Intermediate hair loss Verified 03/26/21 10:47 and nails broke fluocinolone acetonide AdvReac Intermediate made my Verified 03/26/21 10:47 scalp burn. Review of Systems Review of Systems Narrative: GENERAL: Denies chills, fatigue, malaise, fever, sweats. HEENT: Denies sinus pain, ear pain, sore throat, difficulty swallowing, dizziness. RESPIRATORY: Denies dyspnea, cough, wheezing, hemoptysis, sputum. CARDIOVASCULAR: Denies chest pain, palpitations, orthopnea, edema, GASTROINTESTINAL: Denies nausea, vomiting, abdominal pain, diarrhea, constipation, melena. : Denies dysuria, frequency, incontinence, hematuria, urinary retention. MUSCULOSKELETAL: denies weakness, joint pain, or bony pain SKIN: See HPI NEUROLOGIC: Denies weakness, headache, numbness, change in speech, confusion, seizures, incoordination. PSYCHIATRIC: No concerning psychosocial issues. 12 point review of systems is negative except for those stated above Patient History Medical History Hypertension (Unknown) Osteoarthritis of left knee Osteopenia after menopause Postmenopausal HRT (hormone replacement therapy) Surgical History History of tonsillectomy (1945) Status post hysterectomy (1977) Family History Brother Heart disease Hypertension High cholesterol Child Age: 60 Crohns disease Child Age: 57 Hypertension Father Cancer Grandmother Stroke Mother Heart disease Hypertension High cholesterol Stroke Grandmother Heart disease Grandfather No problems noted. Social History household members: family Smoking Status: Never smoker second hand exposure: No alcohol intake: never substance use type: does not use Smoking Status: Never smoker Substance Use Type: does not use Exam Narrative Exam Narrative: GEN: AOx3 and in mild distress EYES: Pupils are equal, round, and reactive to light and accommodation. Extraoccular muscles are intact bilaterally. There is no subconjunctival hemorrhage or exudate. CHEST: Lungs are clear to auscultation bilaterally and free of wheezes, rales, or rhonchi. Heart rate is regular rhythm, there are no murmurs, clicks, rubs, or gallops. There is no chest wall tenderness. ABD: Abdomen is soft and nontender. There is no guarding or rebound. Bowel sounds are normal in all 4 quadrants. There is no mass or organomegaly. EXT: Full painless ROM of all extremities with no loss of sensation or strength. SKIN: 1.5 x 1.5 cm area of erythema, tenderness and fluctuance in left axilla, very small area of spontaneous drainage but will require incision and drainage for more complete treatment, otherwise Warm, pink, and dry. No erythema or rash Initial Vital Signs Initial Vital Signs: Vital Signs Temperature 98.5 F 12/06/21 09:20 Pulse Rate 94 H 12/06/21 09:20 Respiratory Rate 18 12/06/21 09:20 Blood Pressure 200/88 H 12/06/21 09:20 Pulse Oximetry 99 12/06/21 09:20 Procedures Abscess I/D I&D #1: Site: upper extremity Side (if applicable): left Local Anesthetic: lidocaine 1% and with bicarb Amount of anesthesia used (mL): 4 Technique: incised with #11 blade Amount of fluid expressed (mL): 3 Irrigation: No Packing used?: none Course Orders Ordered: ED Orders 12/06/21 10:00 Urine Microscopic Stat 12/06/21 10:32 Wound Culture and Gram Stain Stat Discontinued Medications Lidocaine/Sodium Bicarbonate ([place] 1%/Sod Bicarb 8.4% (10ml) 10 Ml Syringe) 10 ml INJ NOW ONE Stop: 12/06/21 10:14 Vital Signs Vital signs: Vital Signs - 8 hr 12/06/21 09:20 12/06/21 09:35 Temperature 98.5 F Pulse Rate 94 H 82 Respiratory Rate 18 Blood Pressure 200/88 H 182/80 H Pulse Oximetry 99 MDM - Skin/Abscess/Foreign Bdy Lab Data Labs: Lab Results 12/06/21 Range/Units 10:00 Urine RBC None seen (0-5/HPF) Urine WBC None seen (0-5/HPF) Urine Bacteria None seen (None) Ur Culture Indicated? Cult not indicated Micro UA Comment Microscopic normal Urine Dip Bedside Urine Glucose Negative Bedside Urine Bilirubin - Negative Bedside Urine Ketone - Negative Urine Specific [place] 1.020 Bedside Urine Occult Blood - Negative Bedside Urine pH 6.5 Bedside Urine Protein - Negative Bedside Urine Urobilinogen 0.2 Bedside Urine Nitrite - Negative Bedside Urine Leukocytes +/- 15 Esterase Discharge Plan Departure Patient Disposition: Home Clinical Impression: Abscess of skin or subcutaneous tissue Instructions: DI for Skin Abscess Activity Restrictions/Additional Instructions: *You have been diagnosed with [left axillary cutaneous abscess] *What to do: *Please continue to take your regular medications as directed. [ x] New medication prescriptions sent to your pharmacy: [[facility] ] [ ] New medication written as a paper prescription [ ] No new medications given *Please follow up with your primary care provider in 2-3 days, call for an appointment. Let them know you were seen in the Emergency Department and that we ask that you be seen in follow up. We will electronically transmit a record of today's note if your PCP is in our system *If you do not have a primary care provider please contact the [facility] Resource line at [phone]. They will ask some questions about your medical history and help get you set up with a doctor in the community. *Return to Emergency Department if you should have any new, worsening or concerning symptoms, such as [fever greater than 101 F, shaking chills, worsening pain, persistent vomiting or other bothersome symptoms] Prescriptions: New doxycycline hyclate 100 mg tablet 100 mg PO BID Qty: 20 0RF No Action Vitamin C 2,000 mg PO .QDAY 0RF [CALCIUM/MAGNESIUM] 1 tab PO DAILY Qty: 0 0RF [VITAMIN B-12] 1 tab PO DAILY Qty: 0 0RF triamcinolone acetonide 0.1 % cream 1 applictn TOP BID Qty: 15 0RF Rx Instructions: Apply to rash area twice daily. hydroxyzine HCl 25 mg tablet 25 mg PO BEDTIME Qty: 20 1RF lysine [L-Lysine] 500 mg tablet 500 mg PO 5XW PRN (Reason: Cold Sores) 0RF Vitamin A tablet 1 tab PO DAILY 0RF aspirin [Adult Aspirin Regimen] 81 mg tablet,delayed release (DR/EC) 81 mg PO DAILY 0RF losartan 50 mg tablet 50 mg PO DAILY Qty: 90 3RF conjugated estrogens 0.625 mg/gram cream 0.625 mg vaginal DAILY Qty: 30 2RF Rx Instructions: APPLY EVERY THURSDAY AND THURSDAY. clobetasol 0.05 % solution 1 applic topical BEDTIME Qty: 25 1RF Referrals: Dony Chu, [Primary Care Provider] -
[2021-12-06 10:00] VITALS: BP 165/74; PULSE 79; RESP 18; O2SAT 98
[2021-12-06 10:18] LABS: Bacteria Urine None Seen; Culture Indicated Urine Cult Not Indicated; RBC Urine None Seen (0-5/HPF); Urine Comments Microscopic Normal; WBC Urine None Seen (0-5/HPF)
[2021-12-06 10:24] VITALS: BP 187/81; PULSE 79; RESP 18; O2SAT 99
[2021-12-06 10:30] VITALS: BP 172/75; PULSE 80; RESP 18; O2SAT 99
[2021-12-06] MEDS: LIDO 1%/SOD BICARB 8.4% (10ML) 10 ML SYRINGE INJ (10:35)
== END 2021-12-06 10:55 | disposition home or self-care (01) ==
PROVIDERS: Emergency Provider Emergency Medicine; PCP Family Medicine
DX: L02.412 Cutaneous abscess of left axilla (principal)
CPT/HCPCS: 10060; 81003; 81015; 87070; 87075; 87205; 99283

== ENCOUNTER 2022-02-16 17:39 | Emergency (ER) | payer MEDICARE, SELFPAY ==
[2019-10-10 15:30] VITALS: BMI 36.6
[2022-02-16 17:41] VITALS: BP 156/72; PULSE 92; RESP 20; TEMP 36.6; O2SAT 100
--- NOTE | 2022-02-16 17:44 | DI.RAD.S_ITS ---
PROCEDURE: XR CHEST 2V INDICATIONS: shortness of breath TECHNIQUE: 2 views of the chest were acquired. COMPARISON: None. FINDINGS: Surgical changes and devices: None. Lungs and pleura: Lungs are clear. No pleural effusions or pneumothorax. Mediastinum: Mediastinal contours are normal. Heart size is normal. Bones and chest wall: No suspicious bony abnormalities. Soft tissues appear unremarkable. IMPRESSION: No acute cardiopulmonary pathology. Dictated by: Dayron Soni M.D. on 02/16/2022 at 19:00 Approved by: Dayron Soni M.D. on 02/16/2022 at 19:00
--- NOTE | 2022-02-16 18:09 | ED_ITS ---
HPI - General Adult General Chief complaint: Shortness of Breath/Dyspnea Stated complaint: BP fluctuation, breathing problems Time Seen by Provider: 02/16/22 18:08 Source: patient Mode of arrival: Ambulatory History of Present Illness HPI narrative: 81-year-old woman with history of hypertension and prior stroke currently on losartan 50 mg a day and progressively worse anxiety to the point that she is developing agoraphobia. 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 She has had chronic diarrhea with complete workup and no additional treatable medical findings appreciated. It has been recommended that she take Metamucil an use Imodium as needed. She has not found that particularly helpful. She has done some home research on a irritable bowel syndrome and does have a bit of insight into how her worsening anxiety likely making her diarrhea worse. This morning she had an episode of diarrhea that did not seem particularly unusual however she was a bit dizzy afterward, checked her blood pressure found to be 112/68 which concerned her. After lying down she checked again and found the blood pressure to be 177/101 and probably came to the emergency room for further evaluation. Blood pressures in the emergency department have been in the 156/72 range. She does not report any weight loss, changed appetite, chest pain she does note increasing palpitations with anxiety. Continues to complain of increasing anxiety, no specific headaches, no skin changes and no lower extremity edema. Related Data Home Medications Medication Instructions Recorded Confirmed [CALCIUM/MAGNESIUM] 1 tab PO DAILY ##0 03/16/17 03/26/21 [VITAMIN B-12] 1 tab PO DAILY ##0 03/16/17 03/26/21 Vitamin C 2,000 mg PO .QDAY 03/30/18 03/26/21 Vitamin A 1 tab PO DAILY 12/28/18 03/26/21 lysine 500 mg tablet (L-Lysine) 500 mg PO 5XW PRN Cold Sores 12/28/18 03/26/21 aspirin 81 mg tablet,delayed 81 mg PO DAILY 07/12/19 03/26/21 release (Adult Aspirin Regimen) Previous Rx's Medication Instructions Recorded triamcinolone acetonide 0.1 % 1 applictn topical BID #15 grams 09/14/19 topical cream hydroxyzine HCl 25 mg tablet 25 mg PO BEDTIME #20 tabs 10/10/19 clobetasol 0.05 % scalp solution 1 applic topical BEDTIME #25 mL 03/12/21 conjugated estrogens 0.625 mg/gram 0.625 mg vaginal DAILY #30 grams 03/12/21 vaginal cream losartan 50 mg tablet 50 mg PO DAILY #90 tabs 03/12/21 doxycycline hyclate 100 mg tablet 100 mg PO BID #20 tabs 12/06/21 buspirone 5 mg tablet 5 mg PO BID #60 tabs 02/16/22 Allergies Allergy/AdvReac Type Severity Reaction Status Date / Time fenofibrate [FENOFIBRATE] AdvReac Intermediate hair loss Verified 03/26/21 10:47 and nails broke fluocinolone acetonide AdvReac Intermediate made my Verified 03/26/21 10:47 scalp burn. Review of Systems Review of Systems Narrative: Remainder of complete review of systems is otherwise unremarkable except for that included in the HPI. Patient History Medical History (Updated 02/16/22 @ 19:24 by Soraida Franklin MD) Anxiety disorder Hypertension (Unknown) Osteoarthritis of left knee Osteopenia after menopause Postmenopausal HRT (hormone replacement therapy) Surgical History History of tonsillectomy (194) Status post hysterectomy (1977) Family History Brother Heart disease Hypertension High cholesterol Child Age: 60 Crohns disease Child Age: 57 Hypertension Father Cancer Grandmother Stroke Mother Heart disease Hypertension High cholesterol Stroke Grandmother Heart disease Grandfather No problems noted. Social History household members: family Smoking Status: Never smoker second hand exposure: No alcohol intake: never substance use type: does not use Smoking Status: Never smoker Substance Use Type: does not use Exam Initial Vital Signs Initial Vital Signs: Vital Signs Temperature 97.8 F 02/16/22 17:41 Pulse Rate 92 H 02/16/22 17:41 Respiratory Rate 20 02/16/22 17:41 Blood Pressure 156/72 H 02/16/22 17:41 Pulse Oximetry 100 02/16/22 17:41 Oxygen Delivery Method 02/16/22 17:41 General: Healthy appearing, in no acute distress. Able to give a complete and coherent history. Well-nourished well-developed HEENT: Moist mucous membranes, normal sclera with reactive pupils, Neck: No JVD, supple Respiratory: Lungs are clear to auscultation, no wheezing no rales no rhonchi. Full and symmetrical air movement Cardiac: Regular rate and rhythm no murmurs no bruits Abdomen: Soft, nontender, good bowel tones, no flank pain Skin: Warm and dry, no rashes Neurologic: Grossly neurologically intact with no obvious asymmetries or abnormalities Extremities: No trauma, well perfused Psych: Cooperative, appropriate insight and affect Course Orders Ordered: ED Orders 02/16/22 17:44 XR chest 2V Stat Complete Blood Count AUTO DIFF Stat Comprehensive Metabolic Panel Stat Lactate (Lactic Acid) Stat EKG-12 Lead Stat Measure peak expiratory flow ONCE RT Consult Eval and Treat Now Vital Signs Vital signs: Vital Signs - 8 hr 02/16/22 17:41 02/16/22 18:10 02/16/22 19:01 Temperature 97.8 F Pulse Rate 92 H 80 Respiratory Rate 20 18 Blood Pressure 156/72 H 156/85 H 152/65 H Pulse Oximetry 100 97 Oxygen Delivery Method Room Air 02/16/22 19:01 Temperature Pulse Rate 72 Respiratory Rate Blood Pressure Pulse Oximetry 96 Oxygen Delivery Method Medical Decision Making Lab Data Result diagrams: 02/16/22 18:04 02/16/22 18:04 Labs: Lab Results 02/16/22 02/16/22 02/16/22 Range/Units 18:04 18:04 18:04 WBC 6.2 (4.5-11.0) X10^3/uL RBC 4.18 (4.0-5.2) X10^6/uL Hgb 12.7 (12.0-16.0) g/dL Hct 37.7 (36-46) % MCV 90.2 (80-100) fL MCH 30.4 (26-34) PG MCHC 33.7 (30-36) % RDW 13.2 (11.6-14.8) % Plt Count 204 (150-400) X10^3/uL Neut % (Auto) 60.1 (50-75) % Lymph % (Auto) 30.5 (25-40) % Sequoyah % (Auto) 7.0 (3-14) % Eos % (Auto) 1.5 L (2-4) % Baso % (Auto) 0.9 (0-2) % Neut # (Auto) 3700 (2260-7363) /uL Lymph # (Auto) 1900 (5281-1746) /uL Sequoyah # (Auto) 400 (0-900) /uL Eos # (Auto) 100 (0-450) /uL Baso # (Auto) 100 (0-100) /uL Sodium 138 (137-145) mmol/L Potassium 3.9 (3.4-5.1) mmol/L Chloride 103 (98-107) mmol/L Carbon Dioxide 28 (22-32) mmol/L BUN 21 H (7-17) mg/dL Creatinine 0.86 (0.52-1.04) mg/dL Estimated GFR > 60 (>60) mL/min BUN/Creatinine Ratio 24.4 H (6-22) Glucose 105 (80-110) mg/dL Lactate 0.7 (0.7-2.1) mmol/L Calcium 9.1 (8.4-10.2) mg/dL Total Bilirubin 0.6 (0.2-1.3) mg/dL AST 23 (14-36) IU/L ALT 13 (<35) IU/L Alkaline Phosphatase 74 (38-126) U/L Total Protein 7.7 (6.3-8.2) g/dL Albumin 4.3 (3.5-5.0) g/dL Globulin 3.4 (1.7-4.1) g/dL Albumin/Globulin Ratio 1.3 (1.0-2.8) Imaging Data Chest x-ray: Radiologist's Impression: FINDINGS:? ? Surgical changes and devices:? None.? ? Lungs and pleura:? Lungs are clear.? No pleural effusions or pneumothorax.? ? Mediastinum:? Mediastinal contours are normal.? Heart size is normal.? ? Bones and chest wall:? No suspicious bony abnormalities.? Soft tissues appear unremarkable.? ? IMPRESSION:? No acute cardiopulmonary pathology. ? ? Dictated by: Dayron Soni M.D. on 02/16/2022 at 19:00? ?? MDM Narrative Medical decision making narrative: 81-year-old woman with dramatically worsening anxiety to the point that generalized anxiety disorder and agoraphobia may well be appropriate diagnoses for her. This anxiety is exacerbating her blood pressure. I think at baseline it likely is absolutely appropriate however as soon as she worries about anything it goes dramatically up in a vicious cycle. Similar concerns with her chronic diarrhea. I think she needs to continue her dose of losartan at 50 mg daily. We did talk about medications to help treat her anxiety and she is very interested in considering. Will have her try BuSpar initially starting 5 mg da leo for 3 days and then increasing to 5 mg b.i.d. with follow-up with her primary care physician. She was open to the idea of antidepressants as a helpful adjunct in controlling her anxiety as well. There is no evidence of stroke, acute coronary syndrome, infection, electrolyte abnormalities renal dysfunction or alternate diagnosis of require further workup for hospitalization at this time. Questions are answered and she is safe for home discharge Discharge Plan Departure Patient Disposition: Home Clinical Impression: Anxiety, Chronic diarrhea Hypertension Qualifiers: Hypertension type: primary hypertension Qualified Code(s): I10 - Essential (primary) hypertension Instructions: DI for Anxiety -- Adult Activity Restrictions/Additional Instructions: Thank you for coming in today. Your blood pressure has normalized nicely. Your medical evaluation is very reassuring and there is no sign of a stroke or heart attack. We briefly discussed your anxiety and how it is causing significant problems to your daily life. I am going to suggest that you begin an anxiety medication called buspirone. Pl ease begin 5 mg daily in the morning for the 1st 3 days and then increase to 5 mg morning and night. This is a low starting dose and will need to be adjusted. There are other medications that are also very helpful in controlling anxiety. You need to schedule an appointment with Dr. Chu to follow-up regarding this. This prescription was electronically transmitted to [facility] in [place] I believe controlling your anxiety more effectively will likely help you feel more comfortable about your blood pressure as well as your diarrhea If you find that you are getting worse or develop any new symptoms, please feel free to return to the emergency department for further evaluation. Prescriptions: New buspirone 5 mg tablet 5 mg PO BID Qty: 60 0RF Rx Instructions: 1 pill daily for 3 days then increase to BID No Action Vitamin C 2,000 mg PO .QDAY [CALCIUM/MAGNESIUM] 1 tab PO DAILY Qty: 0 [VITAMIN B-12] 1 tab PO DAILY Qty: 0 triamcinolone acetonide 0.1 % cream 1 applictn TOP BID Qty: 15 0RF Rx Instructions: Apply to rash area twice daily. hydroxyzine HCl 25 mg tablet 25 mg PO BEDTIME Qty: 20 1RF lysine [L-Lysine] 500 mg tablet 500 mg PO 5XW PRN (Reason: Cold Sores) Vitamin A tablet 1 tab PO DAILY aspirin [Adult Aspirin Regimen] 81 mg tablet,delayed release (DR/EC) 81 mg PO DAILY losartan 50 mg tablet 50 mg PO DAILY Qty: 90 3RF conjugated estrogens 0.625 mg/gram cream 0.625 mg vaginal DAILY Qty: 30 2RF Rx Instructions: APPLY EVERY THURSDAY AND THURSDAY. clobetasol 0.05 % solution 1 applic topical BEDTIME Qty: 25 1RF doxycycline hyclate 100 mg tablet 100 mg PO BID Qty: 20 0RF Referrals: Dony Chu, [Primary Care Provider] -
[2022-02-16 18:10] VITALS: BP 156/85; PULSE 80; RESP 18; O2SAT 97
[2022-02-16 18:23] LABS: Add Manual Diff / Slide Review NO; Basophils Absolute Auto 100 /uL (0-100); Basophils Percent Auto 0.9 % (0-2); Eosinophils Absolute Auto 100 /uL (0-450); Eosinophils Percent Auto 1.5 % (2-4); Hematocrit 37.7 % (36-46); Hemoglobin 12.7 g/dL (12.0-16.0); Lymphocytes Absolute Auto 1900 /uL (1100-4500); Lymphocytes Percent Auto 30.5 % (25-40); Mean Corpuscular HGB Conc 33.7 % (30-36); Mean Corpuscular Hemoglobin 30.4 PG (26-34); Mean Corpuscular Volume 90.2 fL (80-100); Monocytes Absolute Auto 400 /uL (0-900); Neutrophils Absolute Auto 3700 /uL (1500-7000); Neutrophils Percent Auto 60.1 % (50-75); Platelet Count 204 X10^3/uL (150-400); Red Blood Cell Count 4.18 X10^6/uL (4.0-5.2); Red Cell Distribution Width 13.2 % (11.6-14.8); White Blood Cell Count 6.2 X10^3/uL (4.5-11.0)
[2022-02-16 18:34] LABS: Lactate (Lactic Acid) 0.7 mmol/L (0.7-2.1)
[2022-02-16 18:35] LABS: Alanine Aminotransferase 13 IU/L (<35); Albumin 4.3 g/dL (3.5-5.0); Albumin Globulin Ratio 1.3 (1.0-2.8); Alkaline Phosphatase 74 U/L (38-126); Aspartate Aminotransferase 23 IU/L (14-36); BUN Creatinine Ratio 24.4 (6-22); Bilirubin Total 0.6 mg/dL (0.2-1.3); Blood Urea Nitrogen 21 mg/dL (7-17); Calcium 9.1 mg/dL (8.4-10.2); Carbon Dioxide 28 mmol/L (22-32); Chloride 103 mmol/L (98-107); Estimated Glomerular Filt Rate > 60 mL/min (>60); Globulin 3.4 g/dL (1.7-4.1); Glucose 105 mg/dL (80-110); HEMOLYSIS < 15 (0-50); Potassium 3.9 mmol/L (3.4-5.1); Sodium 138 mmol/L (137-145); Total Protein 7.7 g/dL (6.3-8.2)
[2022-02-16 19:01] VITALS: BP 152/65; PULSE 72; O2SAT 96
[2022-02-16 19:36] VITALS: BP 151/91; PULSE 71; RESP 22; O2SAT 100
== END 2022-02-16 19:36 | disposition home or self-care (01) ==
PROVIDERS: Emergency Medicine; Emergency Provider Emergency Medicine; PCP Family Medicine
DX: F41.9 Anxiety disorder, unspecified (principal); K52.9 Noninfective gastroenteritis and colitis, unspecified; I10 Essential (primary) hypertension; R06.02 Shortness of breath
CPT/HCPCS: 36415; 71046; 80053; 83605; 85025; 99283

== ENCOUNTER 2024-02-08 13:11 | Emergency (ER) | payer MEDICARE, SELFPAY ==
[2024-02-02 15:41] VITALS: BMI 36.6
[2024-02-08 13:19] VITALS: BP 161/99; PULSE 101; RESP 17; TEMP 36.9; O2SAT 98; BMI 33.3
--- NOTE | 2024-02-08 15:38 | PC.NURSE ---
Patient notified this RN that she is leaving without being seen.
--- NOTE | 2024-02-08 19:40 | ED.SKABFB ---
HPI - Skin/Abscess/Foreign Bdy General Chief complaint: Skin/Abscess/Foreign Body Stated complaint: burning rash under lft wrist Source: patient Mode of arrival: Ambulatory History of Present Illness HPI narrative: Patient left without being seen by provider Related Data Home Medications Medication Instructions Recorded Confirmed [CALCIUM/MAGNESIUM] 1 tab PO DAILY ##0 03/16/17 02/28/22 [VITAMIN B-12] 1 tab PO DAILY ##0 03/16/17 02/28/22 Vitamin C 2,000 mg PO .QDAY 03/30/18 02/28/22 Vitamin A 1 tab PO DAILY 12/28/18 02/28/22 lysine 500 mg tablet (L-Lysine) 500 mg PO 5XW PRN Cold Sores 12/28/18 02/28/22 aspirin 81 mg tablet,delayed 81 mg PO DAILY 07/12/19 02/28/22 release (Adult Aspirin Regimen) Previous Rx's Medication Instructions Recorded triamcinolone acetonide 0.1 % 1 applictn topical BID #15 grams 09/14/19 topical cream hydroxyzine HCl 25 mg tablet 25 mg PO BEDTIME #20 tabs 10/10/19 clobetasol 0.05 % scalp solution 1 applic topical BEDTIME #25 mL 03/12/21 doxycycline hyclate 100 mg tablet 100 mg PO BID #20 tabs 12/06/21 conjugated estrogens 0.625 mg/gram See Rx Instructions .Route 02/28/22 vaginal cream (Premarin) .COMPLEX #30 grams metoprolol succinate 25 mg See Rx Instructions .Route 03/03/22 tablet,extended release 24 hr .COMPLEX #90 tabs losartan 50 mg tablet See Rx Instructions .Route 12/23/22 .COMPLEX #90 tabs buspirone 10 mg tablet 10 mg PO BID #60 tabs 08/03/23 Allergies Allergy/AdvReac Type Severity Reaction Status Date / Time fenofibrate [FENOFIBRATE] AdvReac Intermediate hair loss Verified 02/08/24 13:19 and nails broke fluocinolone acetonide AdvReac Intermediate made my Verified 02/08/24 13:19 scalp burn. Patient History Medical History Anxiety disorder Hypertension (Unknown) Osteoarthritis of left knee Osteopenia after menopause Postmenopausal HRT (hormone replacement therapy) Surgical History History of tonsillectomy (194) Status post hysterectomy (1977) Family History Brother Heart disease Hypertension High cholesterol Child Age: 62 Crohns disease Child Age: 59 Hypertension Father Cancer Grandmother Stroke Mother Heart disease Hypertension High cholesterol Stroke Grandmother Heart disease Grandfather No problems noted. Social History household members: family Smoking Status: Never smoker second hand exposure: No alcohol intake: never substance use type: does not use Smoking Status: Never smoker Substance Use Type: does not use Exam Initial Vital Signs Initial Vital Signs: Vital Signs Temperature 98.5 F 02/08/24 13:19 Pulse Rate 101 H 02/08/24 13:19 Respiratory Rate 17 02/08/24 13:19 Blood Pressure 161/99 H 02/08/24 13:19 Pulse Oximetry 98 02/08/24 13:19 Oxygen Delivery Method Room Air 02/08/24 13:19 Course Vital Signs Vital signs: Vital Signs - 8 hr 02/08/24 13:19 Temperature 98.5 F Pulse Rate 101 H Respiratory Rate 17 Blood Pressure 161/99 H Pulse Oximetry 98 Oxygen Delivery Method Room Air Discharge Plan Departure Patient Disposition: Left Without Being Seen Clinical Impression: Patient left without being seen Prescriptions: No Action Vitamin C 2,000 mg PO .QDAY [CALCIUM/MAGNESIUM] 1 tab PO DAILY Qty: 0 [VITAMIN B-12] 1 tab PO DAILY Qty: 0 triamcinolone acetonide 0.1 % cream 1 applictn TOP BID Qty: 15 0RF Rx Instructions: Apply to rash area twice daily. hydroxyzine HCl 25 mg tablet 25 mg PO BEDTIME Qty: 20 1RF Premarin 0.625 mg/gram cream See Rx Instructions .ROUTE .COMPLEX Qty: 30 0RF Dose Instruction: INSERT 1 GRAM VAGINALLY EVERY THURSDAY AND THURSDAY OF EACH WEEK Rx Instructions: INSERT 1 GRAM VAGINALLY EVERY THURSDAY AND THURSDAY OF EACH WEEK metoprolol succinate 25 mg tablet extended release 24 hr See Rx Instructions .ROUTE .COMPLEX Qty: 90 2RF Dose Instruction: TAKE 1 TABLET BY MOUTH AT BEDTIME Rx Instructions: TAKE 1 TABLET BY MOUTH AT BEDTIME losartan 50 mg tablet See Rx Instructions .ROUTE .COMPLEX Qty: 90 1RF Dose Instruction: TAKE 1 TABLET BY MOUTH DAILY Rx Instructions: TAKE 1 TABLET BY MOUTH DAILY buspirone 10 mg tablet 10 mg PO BID Qty: 60 5RF lysine [L-Lysine] 500 mg tablet 500 mg PO 5XW PRN (Reason: Cold Sores) Vitamin A tablet 1 tab PO DAILY aspirin [Adult Aspirin Regimen] 81 mg tablet,delayed release (DR/EC) 81 mg PO DAILY clobetasol 0.05 % solution 1 applic topical BEDTIME Qty: 25 1RF doxycycline hyclate 100 mg tablet 100 mg PO BID Qty: 20 0RF
== END 2024-02-08 15:38 | disposition left against medical advice (07) ==
PROVIDERS: Emergency Provider Emergency Medicine; PCP Family Medicine
CPT/HCPCS: 99281

== ENCOUNTER 2024-02-17 06:19 | Emergency (ER) | payer MEDICARE, SELFPAY ==
[2024-02-02 15:41] VITALS: BMI 36.6
[2024-02-17 06:32] VITALS: BP 212/89; PULSE 89; RESP 16; TEMP 36.6; O2SAT 96; BMI 33.5
--- NOTE | 2024-02-17 06:43 | ED.SKABFB ---
HPI - Skin/Abscess/Foreign Bdy General Chief complaint: Skin/Abscess/Foreign Body Stated complaint: rash under left breast Time Seen by Provider: 02/17/24 06:36 Source: patient Mode of arrival: Ambulatory Limitations: no limitations History of Present Illness HPI narrative: Patient is an 83-year-old female who is here for evaluation of a rash under her left breast. States the symptoms started about 1 week ago. She did come to the emergency department and check in to be evaluated but left without being seen. She tried to contact her primary doctor was going to be several weeks for the appointment. She stated that she has tried some hydrocortisone cream at home without any improvement and potentially worsening. States that it is burning and itching. It is just located under the left breast. Stated that it did start after a hot day. Related Data Home Medications Medication Instructions Recorded Confirmed [CALCIUM/MAGNESIUM] 1 tab PO DAILY ##0 03/16/17 02/28/22 [VITAMIN B-12] 1 tab PO DAILY ##0 03/16/17 02/28/22 Vitamin C 2,000 mg PO .QDAY 03/30/18 02/28/22 Vitamin A 1 tab PO DAILY 12/28/18 02/28/22 lysine 500 mg tablet (L-Lysine) 500 mg PO 5XW PRN Cold Sores 12/28/18 02/28/22 aspirin 81 mg tablet,delayed 81 mg PO DAILY 07/12/19 02/28/22 release (Adult Aspirin Regimen) Previous Rx's Medication Instructions Recorded triamcinolone acetonide 0.1 % 1 applictn topical BID #15 grams 09/14/19 topical cream hydroxyzine HCl 25 mg tablet 25 mg PO BEDTIME #20 tabs 10/10/19 clobetasol 0.05 % scalp solution 1 applic topical BEDTIME #25 mL 03/12/21 doxycycline hyclate 100 mg tablet 100 mg PO BID #20 tabs 12/06/21 conjugated estrogens 0.625 mg/gram See Rx Instructions .Route 02/28/22 vaginal cream (Premarin) .COMPLEX #30 grams metoprolol succinate 25 mg See Rx Instructions .Route 03/03/22 tablet,extended release 24 hr .COMPLEX #90 tabs losartan 50 mg tablet See Rx Instructions .Route 12/23/22 .COMPLEX #90 tabs buspirone 10 mg tablet 10 mg PO BID #60 tabs 08/03/23 nystatin 100,000 unit/gram topical 1 applic topical BID #30 grams 02/17/24 powder Allergies Allergy/AdvReac Type Severity Reaction Status Date / Time fenofibrate [FENOFIBRATE] AdvReac Intermediate hair loss Verified 02/08/24 13:19 and nails broke fluocinolone acetonide AdvReac Intermediate made my Verified 02/08/24 13:19 scalp burn. Review of Systems Constitutional Constitutional: Reports system reviewed and no additional complaints, except as documented Integumentary/Breasts Skin/Breast: Reports system reviewed and no additional complaints, except as documented Patient History Medical History Anxiety disorder Osteoarthritis of left knee Postmenopausal HRT (hormone replacement therapy) Osteopenia after menopause Hypertension (Unknown) Surgical History History of tonsillectomy (1945) Status post hysterectomy (1977) Family History Brother Heart disease Hypertension High cholesterol Child Age: 62 Crohns disease Child Age: 59 Hypertension Father Cancer Grandmother Stroke Mother Heart disease Hypertension High cholesterol Stroke Grandmother Heart disease Grandfather No problems noted. Social History household members: family Smoking Status: Never smoker second hand exposure: No alcohol intake: never substance use type: does not use Smoking Status: Never smoker Substance Use Type: does not use Exam Initial Vital Signs Initial Vital Signs: Vital Signs Temperature 97.9 F 02/17/24 06:32 Pulse Rate 89 02/17/24 06:32 Respiratory Rate 16 02/17/24 06:32 Blood Pressure 212/89 H 02/17/24 06:32 Pulse Oximetry 96 02/17/24 06:32 Oxygen Delivery Method Room Air 02/17/24 06:32 Skin Other: Patient with a rash located under the left breast consistent with a yeast infection. There are no vesicles. No pustules. No breaks in the skin. Course Vital Signs Vital signs: Vital Signs - 8 hr 02/17/24 06:32 Temperature 97.9 F Pulse Rate 89 Respiratory Rate 16 Blood Pressure 212/89 H Pulse Oximetry 96 Oxygen Delivery Method Room Air MDM - Skin/Abscess/Foreign Bdy MDM Narrative Medical decision making narrative: The rashes consistent with a yeast infection. It is not consistent with zoster. Not consistent with cellulitis. No indication for antibiotics. Will put her on nystatin cream. Advised that she stop taking the hydrocortisone. We also discussed other measures to include trying to keep the area clean and dry. She was given return precautions. She expressed understanding and agreement. Discharge Plan Departure Patient Disposition: Home Clinical Impression: Yeast dermatitis Instructions: Yeast Infection-Skin Activity Restrictions/Additional Instructions: You can use the nystatin powder twice daily as needed until the rashes gone. Recommend that you do make a follow-up appointment with your primary doctor. Return to the emergency department for new symptoms. Prescriptions: New nystatin 100,000 unit/gram powder 1 applic topical BID Qty: 30 2RF No Action Vitamin C 2,000 mg PO .QDAY [CALCIUM/MAGNESIUM] 1 tab PO DAILY Qty: 0 [VITAMIN B-12] 1 tab PO DAILY Qty: 0 triamcinolone acetonide 0.1 % cream 1 applictn TOP BID Qty: 15 0RF Rx Instructions: Apply to rash area twice daily. hydroxyzine HCl 25 mg tablet 25 mg PO BEDTIME Qty: 20 1RF Premarin 0.625 mg/gram cream See Rx Instructions .ROUTE .COMPLEX Qty: 30 0RF Dose Instruction: INSERT 1 GRAM VAGINALLY EVERY THURSDAY AND THURSDAY OF EACH WEEK Rx Instructions: INSERT 1 GRAM VAGINALLY EVERY THURSDAY AND THURSDAY OF EACH WEEK metoprolol succinate 25 mg tablet extended release 24 hr See Rx Instructions .ROUTE .COMPLEX Qty: 90 2RF Dose Instruction: TAKE 1 TABLET BY MOUTH AT BEDTIME Rx Instructions: TAKE 1 TABLET BY MOUTH AT BEDTIME losartan 50 mg tablet See Rx Instructions .ROUTE .COMPLEX Qty: 90 1RF Dose Instruction: TAKE 1 TABLET BY MOUTH DAILY Rx Instructions: TAKE 1 TABLET BY MOUTH DAILY buspirone 10 mg tablet 10 mg PO BID Qty: 60 5RF lysine [L-Lysine] 500 mg tablet 500 mg PO 5XW PRN (Reason: Cold Sores) Vitamin A tablet 1 tab PO DAILY aspirin [Adult Aspirin Regimen] 81 mg tablet,delayed release (DR/EC) 81 mg PO DAILY clobetasol 0.05 % solution 1 applic topical BEDTIME Qty: 25 1RF doxycycline hyclate 100 mg tablet 100 mg PO BID Qty: 20 0RF Referrals: Dony Chu DO [Primary Care Provider] - Stand Alone Forms: Patient Portal/API
[2024-02-17 06:51] VITALS: BP 198/85; PULSE 85; RESP 98
== END 2024-02-17 06:57 | disposition home or self-care (01) ==
PROVIDERS: Emergency Provider Emergency Medicine; PCP Family Medicine
DX: B37.2 Candidiasis of skin and nail (principal)
CPT/HCPCS: 99281

== ENCOUNTER 2024-04-10 11:58 | Emergency (ER) | payer MEDICARE, SELFPAY ==
[2024-02-02 15:41] VITALS: BMI 36.6
[2024-04-10 12:01] VITALS: BP 188/77; PULSE 95; RESP 16; TEMP 36.2; O2SAT 97; BMI 34.7
--- NOTE | 2024-04-10 12:25 | ED_ITS ---
HPI - Skin/Abscess/Foreign Bdy General Chief complaint: Skin/Abscess/Foreign Body Stated complaint: Rash R Hand/Lips/Scalp Time Seen by Provider: 04/10/24 12:04 History of Present Illness HPI narrative: Patient is a 83-year-old female history of yeast dermatitis history of hypertension previous breast yeast dermatitis chronic dental pain, has right hand rash presenting today with multiple rashes. She reports that she started having breast rash again she was actually seen and evaluated here in April and prescribed nystatin powder which she says actually helped a lot and it does not look as bad this time as it did last time. She has a couple refills on the powder she just has not filled it yet. She also has a right hand rash which is vesicular painful and pruritic in nature. She reports that she is tried everything she can over the last 3 days and it has not getting any better. She tried some Benadryl cream and it did not help. She also has a similar rash in her scalp. She reports this has been happening to her off and on for at least the last 5 years. She has no fever or chills. She also complains of dental pain. She has upper dentures she says that she has had dental pain and swelling since December is not any worse today she will follow- up with her dentist in regards to these complaints feels like this all might be connected Related Data Home Medications Medication Instructions Recorded Confirmed [CALCIUM/MAGNESIUM] 1 tab PO DAILY ##0 03/16/17 02/22/24 [VITAMIN B-12] 1 tab PO DAILY ##0 03/16/17 02/22/24 Vitamin C 2,000 mg PO .QDAY 03/30/18 02/22/24 Vitamin A 1 tab PO DAILY 12/28/18 02/22/24 lysine 500 mg tablet (L-Lysine) 500 mg PO 5XW PRN Cold Sores 12/28/18 02/22/24 aspirin 81 mg tablet,delayed 81 mg PO DAILY 07/12/19 02/22/24 release (Adult Aspirin Regimen) Previous Rx's Medication Instructions Recorded triamcinolone acetonide 0.1 % 1 applictn topical BID #15 grams 09/14/19 topical cream clobetasol 0.05 % scalp solution 1 applic topical BEDTIME #25 mL 03/12/21 nystatin 100,000 unit/gram topical 1 applic topical BID #30 grams 02/17/24 powder buspirone 10 mg tablet 10 mg PO BID #180 tabs 02/22/24 conjugated estrogens 0.625 mg/gram See Rx Instructions .Route 02/22/24 vaginal cream (Premarin) .COMPLEX #30 grams losartan 50 mg tablet See Rx Instructions .Route 02/22/24 .COMPLEX #90 tabs Allergies Allergy/AdvReac Type Severity Reaction Status Date / Time fenofibrate [FENOFIBRATE] AdvReac Intermediate hair loss Verified 02/08/24 13:19 and nails broke fluocinolone acetonide AdvReac Intermediate made my Verified 02/08/24 13:19 scalp burn. Patient History Medical History Anxiety disorder Osteoarthritis of left knee Postmenopausal HRT (hormone replacement therapy) Osteopenia after menopause Hypertension (Unknown) Surgical History History of tonsillectomy (1945) Status post hysterectomy (1977) Family History Brother Heart disease Hypertension High cholesterol Child Age: 63 Crohns disease Child Age: 60 Hypertension Father Cancer Grandmother Stroke Mother Heart disease Hypertension High cholesterol Stroke Grandmother Heart disease Grandfather No problems noted. Social History household members: family Smoking Status: Never smoker second hand exposure: No alcohol intake: never substance use type: does not use Smoking Status: Never smoker alcohol intake frequency: other Substance Use Type: does not use Exam Initial Vital Signs Initial Vital Signs: Vital Signs Temperature 97.2 F L 04/10/24 12:01 Pulse Rate 95 H 04/10/24 12:01 Respiratory Rate 16 04/10/24 12:01 Blood Pressure 188/77 H 04/10/24 12:01 Pulse Oximetry 97 04/10/24 12:01 Oxygen Delivery Method Room Air 04/10/24 12:01 GENERAL: Alert 83-year-old elderly female CARDIOVASCULAR: peripheral pulses in tact, cap refill <2 sec RESPIRATORY: No respiratory distress, speaks in full sentences without difficulty MOUTH: Possible mild right jaw swelling no erythema no trismus no dental abscess she does have a sore on her gums which she says she gets her upper denture has been removed I see no obvious abnormalities EXTREMITIES: Normal range of motion, no clubbing or edema. Neurovascularly intact NEUROLOGICAL: Cranial nerves II through XII grossly intact. Normal gait and speech. SKIN: Very slight yeast dermatitis noted bilaterally under both breasts mild erythema. Right hand vesicular erythematous lesions mostly between fingers dry and cracking Course Vital Signs Vital signs: Vital Signs - 8 hr 08//24 12:01 Temperature 97.2 F L Pulse Rate 95 H Respiratory Rate 16 Blood Pressure 188/77 H Pulse Oximetry 97 Oxygen Delivery Method Room Air MDM - Skin/Abscess/Foreign Bdy MDM Narrative Medical decision making narrative: Patient 83-year-old female presents today with a variety of complaints she has had ongoing dental pain for the last 4 months it does not seem to be significantly worse. She does have 1 sore in her mouth but does not seem to be an abscess or infected she reports that she gets these sometimes. Would hold off antibiotics let her see the dentist Right hand appears to be eczema recommended some Aquaphor she can follow up with primary if that does not work She also has recurrent bilateral breast yeast dermatitis it is very mild this time she has refills on her powder recommend that she use that she just needs to go to the pharmacy and get it refilled. At this time no significant erythema signs of sepsis or cellulitis. Discharge Plan Departure Patient Disposition: Home Clinical Impression: Eczema, Yeast dermatitis Instructions: Eczema Activity Restrictions/Additional Instructions: *You have been diagnosed with eczema and yeast dermatitis *What to do: At this time I do recommend Aquaphor, the ointment blue top why bottom, for your hand 2-3 times daily this will take a couple of days for to start feeling better I do recommend that you refill your powder prescription for your breast rash Please follow-up with your dentist in regards to your teeth *Continue to take medications as directed *Follow up with your primary care provider in 2-3 days or call [phone] *Return to ER if you should have any new, worsening or concerning symptoms Prescriptions: No Action Vitamin C 2,000 mg PO .QDAY [CALCIUM/MAGNESIUM] 1 tab PO DAILY Qty: 0 [VITAMIN B-12] 1 tab PO DAILY Qty: 0 triamcinolone acetonide 0.1 % cream 1 applictn TOP BID Qty: 15 0RF Rx Instructions: Apply to rash area twice daily. lysine [L-Lysine] 500 mg tablet 500 mg PO 5XW PRN (Reason: Cold Sores) Vitamin A tablet 1 tab PO DAILY aspirin [Adult Aspirin Regimen] 81 mg tablet,delayed release (DR/EC) 81 mg PO DAILY clobetasol 0.05 % solution 1 applic topical BEDTIME Qty: 25 1RF buspirone 10 mg tablet 10 mg PO BID Qty: 180 3RF Premarin 0.625 mg/gram cream See Rx Instructions .ROUTE .COMPLEX Qty: 30 3RF Dose Instruction: INSERT 1 GRAM VAGINALLY EVERY THURSDAY AND THURSDAY OF EACH WEEK Rx Instructions: INSERT 1 GRAM VAGINALLY EVERY THURSDAY AND THURSDAY OF EACH WEEK losartan 50 mg tablet See Rx Instructions .ROUTE .COMPLEX Qty: 90 3RF Dose Instruction: TAKE 1 TABLET BY MOUTH DAILY Rx Instructions: TAKE 1 TABLET BY MOUTH DAILY nystatin 100,000 unit/gram powder 1 applic topical BID Qty: 30 2RF Referrals: Dony Chu, [Primary Care Provider] - Stand Alone Forms: Patient Portal/API
== END 2024-04-10 12:57 | disposition home or self-care (01) ==
PROVIDERS: Emergency Provider Emergency Medicine; PCP Family Medicine
DX: L30.9 Dermatitis, unspecified (principal); B37.2 Candidiasis of skin and nail
CPT/HCPCS: 99281